=== PATIENT | male | born 1945 | race Caucasian/White ===

== ENCOUNTER → 2016-10-16 | Outpatient (CLI) | payer MEDICARE ==
[~2016-10-16] MED LIST: ACET325T51 PO; ATOR40TA PO; FLUD0.1T PO; GABA-336 PO; GABA-338 PO; INSU100V SQ; INSU100V8 SQ; LACT1CAP46 PO; LEVO75TA4 PO; MIDO5TAB PO; MULT-28 PO; PANT40TA27 PO; PRED20TA PO; SERT100T12 PO
--- NOTE | 2016-10-16 14:48 | DI ---
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 Findings: There is no evidence for acute deep venous thrombosis in either thigh. Specifically, serial graded compression was performed from the inguinal ligament to the popliteal bifurcation, bilaterally, demonstrating appropriate compressibility of the deep venous system. In addition, color and pulsed Doppler demonstrate appropriate spontaneous flow, variation with respiration, and augmentation with calf compression. At the ankle, normal flow is identified in the posterior tibial veins; these vessels are also normal in caliber. Superficial thrombosis, possibly chronic is seen in the right anterior tibial vein of the calf. Impression: No evidence of acute DVT in either lower limb. .
--- NOTE | 2016-10-16 14:50 | DI ---
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 Findings: RIGHT LEG (cm/sec) Common Femoral 89 Superficial Femoral Proximal 73 Mid 68 Distal 62 Popliteal 71 MANUELA-prox 42 SHADE MAKER-prox 30 MANUELA-dist 50 SHADE MAKER-dist 40 LEFT LEG (cm/sec) Common Femoral 97 Superficial Femoral Proximal 73 Mid 81 Distal 68 Popliteal 64 MANUELA-prox 68 SHADE MAKER-prox 65 MANUELA-dist 69 SHADE MAKER-dist 68 Normal multiphasic waveforms in the right lower extremity through the popliteal. There are dampened waveforms seen in the calf arteries. No focal velocity elevation or occlusion however. Left lower extremity shows normal waveforms to the level of the popliteal. There are dampened waveforms in the left posterior tibial artery. IMPRESSION: 1. Mild stenosis in the right popliteal. 2. Mild stenosis in the left posterior tibial artery. .
== END ==
LOC: IMA 13:18
PROVIDERS: ATTEND Internal Medicine
DX: L97.921 Non-pressure chronic ulcer of unspecified part of left lower leg limited to breakdown of skin (principal); I82.441 Acute embolism and thrombosis of right tibial vein; I70.203 Unspecified atherosclerosis of native arteries of extremities, bilateral legs; L97.811 Non-pressure chronic ulcer of other part of right lower leg limited to breakdown of skin

== ENCOUNTER 2017-12-01 23:04 | Inpatient (IN) ==
--- OUTSIDE RECORDS SUMMARY | 2017-12-01 23:32 | External Medical Summary ---
:1945 Author Organization [employer] Care Team Providers Name Role Phone Beltran Leija Provider Role Unavailable Allergies No Known Allergies Problems Problem Type Condition Code Onset Dates Condition Status Problem Dyspnea R06.00 Active Problem Palpitation R00.2 Active Problem Dizziness and giddiness R42 Active Medications No Known Medications Results No Known Results Summary Purpose [facility] [employer] Submission
--- OUTSIDE RECORDS SUMMARY | 2017-12-01 23:32 | External Medical Summary ---
:1945 Author Organization [employer] Care Team Providers Name Role Phone Eboni, Ashley Provider Role Unavailable Allergies, Adverse Reactions, Alerts Substance Reaction Event Type N.K.D.A. Info Not Available Non Drug Allergy Problems Problem Type Condition ICD-9 Code Onset Dates Condition Status Problem Hypothyroid 244.9 Active Assessment Diabetes Mellitus Type 2, not 250.00 Active stated as uncontrolled Problem Diabetes Mellitus Type 2, not 250.00 Active stated as uncontrolled Assessment Delusional disorder 297.1 Active Assessment Hypothyroid 244.9 Active Assessment Other psychological or physical V62.89 Active stress, not elsewhere classified Medications Medication Code Code Instructions Start End Status Dosage System Date Date Levothyroxine [facility] 19097-19 25 MCG Orally Feb 16, 1 tablet Sodium 91-84 Once a day 2013 on an empty stomach in the morning Lantus [facility] 86927-54 100 UNIT/ML 25 units 20-33 Subcutaneous QD hs Risperdal Consta [facility] 73254-80 25 MG December 01, 25 mg 12-08 Intramuscular 2014 every 2 weeks Rolaids [facility] 27532-45 550-110 MG Orally 2 tablets 16-31 Six times a day as needed Procedures Procedure Coding System Code Date OFFICE VISIT, EST-MOD. COMPLEXITY (25 MIN) CPT-4 16737 December 01, 2014 [facility] visit Established Patient CPT-4 G0467 December 01, 2014 Vital Signs Date/Time: December 01, 2014 Height 71 in Weight 198.8 lbs Temperature 97.9 F Blood Pressure Diastolic 59 mm Hg Blood Pressure Systolic 103 mm Hg Cardiac Monitoring Heart Rate 74 /min BMI 27.72 Index Respiratory Rate 14 /min Results No Known Results Summary Purpose [employer] Submission
--- OUTSIDE RECORDS SUMMARY | 2017-12-01 23:32 | External Medical Summary ---
:1945 Author Organization [employer] Care Team Providers Name Role Phone Ashley Lyn Provider Role Unavailable Allergies No Known Allergies Problems Problem Type Condition Code Onset Dates Condition Status Problem Hypothyroid 244.9 Active Problem Diabetes Mellitus Type 2, not stated 250.00 Active as uncontrolled Medications Medication Code System Code Instructions Start Date End Date Status Dosage Risperdal [facility] [address] 0.5 MG Orally BID December 15 -2014 Results No Known Results Summary Purpose [employer] Submission
--- OUTSIDE RECORDS SUMMARY | 2017-12-01 23:32 | External Medical Summary ---
:1945 Author Organization [employer] Care Team Providers Name Role Phone Chip Salmeron Provider Role Unavailable Allergies, Adverse Reactions, Alerts Substance Reaction Event Type N.K.D.A. Info Not Available Non Drug Allergy Problems Problem Type Condition Code Onset Dates Condition Status Problem Diabetes Mellitus Type 2, not 250.00 Active stated as uncontrolled Problem Hypothyroidism, unspecified E03.9 Active Problem Personal history of other diseases Z87.39 Active of the musculoskeletal system and connective tissue Problem Type 2 diabetes mellitus with E11.65 Active hyperglycemia Problem Hyperlipidemia, unspecified E78.5 Active Problem Mixed hyperlipidemia E78.2 Active Problem Gastro-esophageal reflux disease K21.9 Active without esophagitis Problem Type 2 diabetes mellitus without E11.9 Active complications Problem Major depressive disorder, single F32.9 Active episode, unspecified Problem Essential (primary) hypertension I10 Active Assessment Anemia, unspecified D64.9 Active Assessment Non-pressure chronic ulcer of L97.909 Active unspecified part of unspecified lower leg with unspecified severity Assessment Encounter for immunization Z23 Active Assessment Gastro-esophageal reflux disease K21.9 Active without esophagitis Assessment Hypomagnesemia E83.42 Active Assessment Hypokalemia E87.6 Active Assessment Other 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 Active Assessment Mixed hyperlipidemia E78.2 Active Assessment Type 2 diabetes mellitus without E11.9 Active complications Problem Hypothyroid 244.9 Active Medications Medication Code Code Instructions Start End Status Dosage [place] [address]-53 300 MG Orally 1 capsule 39-01 [place] [address]-03 17 grams Orally AugustJun 10, 17 grams 34-02 daily mixed with 2015 (1 8 oz water [place]full) [place] [address]-31 100 UNIT/ML 20 units 20-33 Subcutaneous Once [place] [address]-73 100 MG Orally 1 tablet 24-13 [place] [address]-08 0.1 MG Orally Dec 12, 2 tablet Acetate 33-01 daily 2015 Midodrine HCl [facility] 17962-55 10 MG Orally 1 tablet 33-01 Three times a day Carbidopa-Levodopa [facility] 22858-86 25-100 MG Orally 1 tablet 93-01 Three times a day Pantoprazole Sodium [facility] 56327-28 20 MG Orally 1 tablet 06-01 [place] [address]-58 75 MCG Orally Mar 13, 1 tablet 82-11 Once a day 2015 on an empty stomach in the morning Potassium Chloride [facility] 09015-88 20 Orally Twice May 12, 2 tablet ER 80-01 a day 2015 Minocycline HCl [facility] 10059-28 100 MG Orally 1 capsule 67-53 Twice a day Mirtazapine [facility] 89180-59 7.5 MG Orally 1 tablet 63-00 Once a day before bedtime in the evening Pravachol [facility] 79510-13 20 MG Orally Mar 28, 1 tablet 78-05 Once a day 2015 Procedures Procedure Coding System Code Date OFFICE VISIT, EST-LOW COMPLEXITY (15 MIN.) CPT-4 30014 Mar 28, 2016 PNEUMOCOCOCCAL CONJUGATE VACCINE CPT-4 80824 Mar 28, 2016 [facility] visit Established Patient CPT-4 G0467 Mar 28, 2016 ADMINISTRATION, 1ST IMMUNIZATION CPT-4 58155 Mar 28, 2016 Vital Signs Date/Time: Mar 28, 2016 Temperature 97.9 F Height 71 in Weight 177.8 lbs Blood Pressure Diastolic 70 mm Hg Blood Pressure Systolic 118 mm Hg Cardiac Monitoring Heart Rate 68 /min BMI 24.80 Index Oximetry 98 % Results No Known Results Immunizations Vaccine Administration Date Prevnar 13 Mar 28, 2016 Summary Purpose [employer] Submission
--- OUTSIDE RECORDS SUMMARY | 2017-12-01 23:32 | External Medical Summary ---
:1945 Author Organization [employer] Care Team Providers Name Role Phone Ashley Lyn Provider Role Unavailable Allergies No Known Allergies Problems Problem Type Condition ICD-9 Code Onset Dates Condition Status Problem Hypothyroid 244.9 Active Assessment Hypothyroid 244.9 Active Problem Diabetes Mellitus Type 2, not 250.00 Active stated as uncontrolled Assessment Aftercare for healing traumatic V54.13 Active fracture of hip Assessment Diabetes Mellitus Type 2, not 250.00 Active stated as uncontrolled Assessment Personal history of arthritis V13.4 Active Medications Medication Code Code Instructions Start End Date Status Dosage System Date Lovastatin [facility] 60622-94 20 MG Orally Feb 16, Active 1 tablet 76-06 Once a day 2013 [place] [address]-63 15 MG Orally May 19May 14, Active 1 tablet 99-01 Once a day 2013 2014 [place] [address]-97 100 UNIT/ML Active 30 units 20-33 [place] [address]-07 550-110 MG Active 2 tablets 16-31 Orally Six times [place] [address]-32 25 MCG Orally Feb 16, Active 1 tablet Sodium 53-00 Once a day 2013 on an empty stomach in the morning Procedures Procedure Coding System Code Date HEMOGLOBIN A1C, IN HOUSE CPT-4 16384 May 19, 2014 OFFICE VISIT, EST-LOW COMPLEXITY (15 MIN.) CPT-4 60320 May 19, 2014 TSH CPT-4 35087 May 19, 2014 Vital Signs Date/Time: May 19, 2014 Height 71 inches Weight 194.8 lbs Temperature 98.1 F Blood Pressure Diastolic 60 mm Hg Blood Pressure Systolic 100 mm Hg Cardiac Monitoring Heart Rate 60 Beats per Minute BMI 27.17 Index Respiratory Rate 16 per Minute Results Name Result Date Reference Range Unit In House Hemoglobin A1c TSH Summary Purpose [employer] Submission
--- OUTSIDE RECORDS SUMMARY | 2017-12-01 23:32 | External Medical Summary ---
:1945 Author Organization [employer] Care Team Providers Name Role Phone Ashley Lyn Provider Role Unavailable Allergies No Known Allergies Problems Problem Type Condition Code Onset Dates Condition Status Problem Hypothyroid 244.9 Active Problem Diabetes Mellitus Type 2, not stated 250.00 Active as uncontrolled Medications No Known Medications Results No Known Results Summary Purpose [facility] [employer] Submission
--- OUTSIDE RECORDS SUMMARY | 2017-12-01 23:32 | External Medical Summary ---
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 Problem Insomnia, unspecified G47.00 Active Problem Schizophrenia, unspecified F20.9 Active Problem Hyperlipidemia, unspecified E78.5 Active Problem Major depressive disorder, single F32.9 Active episode, unspecified Problem Mixed hyperlipidemia E78.2 Active Problem Type 2 diabetes mellitus with E11.65 Active hyperglycemia Problem Hypothyroid 244.9 Active Problem Diabetes Mellitus Type 2, not stated 250.00 Active as uncontrolled Problem Personal history of other diseases Z87.39 Active of the musculoskeletal system and connective tissue Problem Hypothyroidism, unspecified E03.9 Active Medications No Known Medications Results No Known Results Summary Purpose [employer] Submission
--- OUTSIDE RECORDS SUMMARY | 2017-12-01 23:32 | External Medical Summary ---
:1945 Author Organization [employer] Care Team Providers Name Role Phone Beltran Leija Provider Role Unavailable Allergies No Known Allergies Problems Problem Type Condition Code Onset Dates Condition Status Problem Dyspnea R06.00 Active Problem Palpitation R00.2 Active Problem Dizziness and giddiness R42 Active Medications No Known Medications Results No Known Results Summary Purpose [facility] Submission
--- OUTSIDE RECORDS SUMMARY | 2017-12-01 23:32 | External Medical Summary ---
[...] 2 diabetes mellitus with E11.65 Active hyperglycemia Assessment Type 2 diabetes mellitus with E11.65 Active hyperglycemia Problem Hypothyroid 244.9 Active Problem Diabetes Mellitus Type 2, not stated 250.00 Active as uncontrolled Assessment Other fatigue R53.83 Active Problem Personal history of other diseases Z87.39 Active of the musculoskeletal system and connective tissue Assessment Confusion R41.0 Active Problem Hypothyroidism, unspecified E03.9 Active Medications Medication Code Code Instructions Start End Status Dosage System Date Date MiraLax [facility] 48166-84 17 grams Orally AugustJun 10, 17 grams 34-02 daily mixed with 2015 (1 8 oz water capfull) Midodrine HCl [facility] 94179-85 10 MG Orally 1 tablet 33-01 Three times a day Gabapentin [facility] 91649-60 300 MG Orally 1 capsule 39-01 daily at supper Pantoprazole Sodium [facility] 70704-91 20 MG Orally 1 tablet 06-01 Once a day Sertraline HCl [facility] 27306-08 100 MG Orally 1 tablet 24-13 Once a day Synthroid [facility] 35228-81 75 MCG Orally Mar 13, 1 tablet 82-11 Once a day 2016 on an empty stomach in the morning Pravachol [facility] 08386-99 20 MG Orally Mar 28, 1 tablet 78-05 Once a day 2015 Lantus [facility] 84566-23 100 UNIT/ML 20 units 20-33 Subcutaneous Once a day at bedtime Minocycline HCl [facility] 73623-95 100 MG Orally 1 capsule 67-53 Twice a day Potassium Chloride [facility] 09869-00 20 Orally Twice Jun 10, 2 tablet ER 80-01 a day 2015 Carbidopa-Levodopa [facility] 34599-85 25-100 MG Orally 1 tablet 93-01 Three times a day Mirtazapine [facility] 78508-83 7.5 MG Orally 1 tablet 63-00 Once a day before bedtime in the evening Fludrocortisone [facility] 96100-44 0.1 MG Orally May 12, 2 tablet Acetate 33-01 daily 2015 Procedures Procedure Coding System Code Date URINALYSIS WITH MICROSCOPIC CPT-4 39007 May 27, 2016 URINE CULTURE CPT-4 29204 May 27, 2016 Results Name Result Date Reference Range Unit Abnormality Flag Urine Culture ----Urine Culture Source: Urine [id number] Collected: 05/27/16 15:16 Urinalysis with Microscopic ----Nitrites Negative [id number] Negative ----Protein Negative [id number] Negative ----Specific [place] 1.044 20160527 1.003-1.030 H ----Bilirubin Negative [id number] Negative ----Urobilinogen 1.0 [id number] <1.0 mg/dL ----Leukocyte Negative [id number] Negative Esterase ----pH 5.5 20160527 5.0-8.0 ----Epithelial Cells 0-2 11005867 /HPF ----Ketones Negative [id number] Negative ----Hyaline Casts 4-6 [id number] 0-3 /LPF * ----Blood Negative [id number] Negative ----Color DkYellow 20160527 ----RBC, Urine 5-10 [id number] 0-4 /HPF * ----WBC, Urine 0-2 [id number] 0-4 /HPF ----Glucose, Urine Pos 1+ [id number] Negative * ----Appearance Turbid [id number] * ----Crystals Ca Ox 20160527 ----Microscop. Exam performed [id number] Perf. Summary Purpose [employer]ClinicalWorks Submission
--- OUTSIDE RECORDS SUMMARY | 2017-12-01 23:32 | External Medical Summary ---
:1945 Author Organization [employer] Care Team Providers Name Role Phone Ashley Lyn Provider Role Unavailable Allergies No Known Allergies Problems Problem Type Condition Code Onset Dates Condition Status Problem Hypothyroidism, unspecified E03.9 Active Problem Personal history of other diseases Z87.39 Active of the musculoskeletal system and connective tissue Problem Type 2 diabetes mellitus without E11.9 Active complications Problem Diabetes Mellitus Type 2, not stated 250.00 Active as uncontrolled Problem Hypothyroid 244.9 Active Medications No Known Medications Results No Known Results Summary Purpose [employer] Submission
--- OUTSIDE RECORDS SUMMARY | 2017-12-01 23:32 | External Medical Summary ---
:1945 Author Organization [employer] Care Team Providers Name Role Phone Ashley Lyn Provider Role Unavailable Allergies No Known Allergies Problems Problem Type Condition Code Onset Dates Condition Status Problem Hypothyroid 244.9 Active Problem Diabetes Mellitus Type 2, not stated 250.00 Active as uncontrolled Medications Medication Code System Code Instructions Start Date End Date Status Dosage Lantus [facility] [address] 100 UNIT/ML 30 units -33 Subcutaneous daily at bedtime Results No Known Results Summary Purpose [employer]ClinicalWorks Submission
--- OUTSIDE RECORDS SUMMARY | 2017-12-01 23:32 | External Medical Summary ---
:1945 [facility] Care Team Providers Name Role Phone Chip Salmeron Provider Role Unavailable Allergies, Adverse Reactions, Alerts Substance Reaction Event Type N.K.D.A. Info Not Available Non Drug Allergy Problems Problem Type Condition Code Onset Dates Condition Status Problem Hypothyroid 244.9 Active Problem Personal history of other diseases Z87.39 Active of the musculoskeletal system and connective tissue Problem Diabetes Mellitus Type 2, not 250.00 Active stated as uncontrolled Problem Hyperlipidemia, unspecified E78.5 Active Assessment Essential (primary) hypertension I10 Active Problem Major depressive disorder, single F32.9 Active episode, unspecified Assessment Anemia, unspecified D64.9 Active Assessment Gastro-esophageal reflux disease K21.9 Active without esophagitis Problem Type 2 diabetes mellitus with E11.65 Active hyperglycemia Problem Type 2 diabetes mellitus without E11.9 Active complications Problem Hypothyroidism, unspecified E03.9 Active Problem Essential (primary) hypertension I10 Active Problem Gastro-esophageal reflux disease K21.9 Active without esophagitis Assessment Other adrenocortical insufficiency E27.49 Active Assessment Enterocolitis due to Clostridium A04.7 Active difficile Assessment Insomnia, unspecified G47.00 Active Assessment Major depressive disorder, single F32.9 Active episode, unspecified Assessment Non-pressure chronic ulcer of L97.909 Active unspecified part of unspecified lower leg with unspecified severity Assessment 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 Assessment Hyperlipidemia, unspecified E78.5 Active Assessment Hypothyroidism, unspecified E03.9 Active Assessment Orthostatic hypotension I95.1 Active Assessment Type 2 diabetes mellitus with E11.65 Active hyperglycemia Medications Medication Code Code Instructions Start End Status Dosage [place] [address]-45 40 MG Orally 1 tablet 07-01 [place] [address]-73 25-100 MG Orally 1 tablet 93-01 Three times a day Fludrocortisone [facility] 71669-58 0.1 MG Orally May 12, 2 tablet Acetate 33- daily 2015 MiraLax [facility] 48938-80 17 grams Orally AugustJun 10, 17 grams 34-02 daily mixed with 2015 (1 8 oz water capfull) Levothyroxine [facility] 31851-18 75 MCG Orally Feb 16, 1 tablet Sodium 55-00 Once a day 2013 on an empty stomach in the morning every other day Minocycline HCl [facility] 14516-27 100 MG Orally 1 capsule 67-53 Twice a day Potassium Chloride [facility] 63980-94 20 Orally Twice Jun 10, 2 tablet ER 80-01 a day 2015 Midodrine HCl [facility] 62599-58 10 MG Orally 1 tablet 33-01 Three times a day Sertraline HCl [facility] 38969-95 100 MG Orally 1 tablet 24-13 Once a day Lantus [facility] 39311-15 100 UNIT/ML 20 units 20-33 Subcutaneous Once a day at bedtime Mirtazapine [facility] 67401-18 7.5 MG Orally 1 tablet 63-00 Once a day before bedtime in the evening Procedures Procedure Coding System Code Date OFFICE VISIT, EST-LOW COMPLEXITY (15 MIN.) CPT-4 73542 Mar 12, 2016 [facility] visit Established Patient CPT-4 G0467 Mar 12, 2016 Vital Signs Date/Time: Mar 12, 2016 Temperature 97.0 F Height 71 in Weight 172.8 lbs Blood Pressure Diastolic 62 mm Hg Blood Pressure Systolic 116 mm Hg Cardiac Monitoring Heart Rate 74 /min BMI 24.10 Index Oximetry 98 % Respiratory Rate 16 /min Results No Known Results Summary Purpose eClinicalWorks Submission
--- OUTSIDE RECORDS SUMMARY | 2017-12-01 23:32 | External Medical Summary ---
:1945 Author Organization [employer] Care Team Providers Name Role Phone Chip Salmeron Provider Role Unavailable Allergies No Known Allergies Problems Problem Type Condition Code Onset Dates Condition Status Problem Diabetes Mellitus Type 2, not stated 250.00 Active as uncontrolled Problem Hypothyroidism, unspecified E03.9 Active Problem Personal history of other diseases Z87.39 Active of the musculoskeletal system and connective tissue Problem Hypothyroid 244.9 Active Problem Type 2 diabetes mellitus with E11.65 Active hyperglycemia Problem Hyperlipidemia, unspecified E78.5 Active Problem Mixed hyperlipidemia E78.2 Active Problem Gastro-esophageal reflux disease K21.9 Active without esophagitis Problem Type 2 diabetes mellitus without E11.9 Active complications Problem Major depressive disorder, single F32.9 Active episode, unspecified Problem Essential (primary) hypertension I10 Active Medications No Known Medications Results No Known Results Summary Purpose [employer]ClinicalWorks Submission
--- OUTSIDE RECORDS SUMMARY | 2017-12-01 23:32 | External Medical Summary ---
:1945 Author Organization [employer]ClinicalWorks Care Team Providers Name Role Phone Ashley Lyn Provider Role Unavailable Allergies No Known Allergies Problems Problem Type Condition ICD-9 Code Onset Dates Condition Status Problem Hypothyroid 244.9 Active Problem Diabetes Mellitus Type 2, not 250.00 Active stated as uncontrolled Medications No Known Medications Results No Known Results Summary Purpose [email or web address] Submission
--- OUTSIDE RECORDS SUMMARY | 2017-12-01 23:32 | External Medical Summary ---
:1945 Author Organization [employer]ClinicalWorks Care Team Providers Name Role Phone Beltran Leija Provider Role Unavailable Allergies, Adverse Reactions, Alerts Substance Reaction Event Type N.K.D.A. Info Not Available Non Drug Allergy Problems Problem Type Condition Code Onset Dates Condition Status Problem Dyspnea R06.00 Active Problem Palpitation R00.2 Active Problem Dizziness and giddiness R42 Active Assessment Palpitation R00.2 Active Assessment Dyspnea R06.00 Active Assessment Dizziness and giddiness R42 Active Medications Medication Code Code Instructions Start End Date Status Dosage System Date Antibiotic NDC 0 orally bid 1 tablet Risperidone NDC 86955-38 3 MG Orally Once 1 tablet 42-05 a day Levothyroxine NDC 59391-50 75 MCG Orally 1 tablet Sodium 55-00 Once a day MiraLax NDC 80862-74 Orally not 34-02 defined Lantus NDC 55738-79 100 UNIT/ML not 20-33 Subcutaneous defined Trazodone HCl NDC 81336-14 50 MG Orally 2 tablets 59-00 Once a day Lasix NDC 59147-03 20 MG Orally September 24, 1 tablet 67-10 Once a day 2015 Procedures Procedure Coding System Code Date Office Visit, Est Pt., Level 4 CPT-4 26962 September 25, 2015 ELECTROCARDIOGRAM, TRACING CPT-4 24946 September 25, 2015 Vital Signs Date/Time: September 25, 2015 BMI 23.87 Index Weight 176. lbs Height 6 ft 0 in in Cardiac Monitoring Heart Rate 87 /min Oximetry 97% % Blood Pressure Diastolic 40 mm Hg Blood Pressure Systolic 70 mm Hg Results No Known Results Summary Purpose [employer]ClinicalWorks Submission
--- OUTSIDE RECORDS SUMMARY | 2017-12-01 23:32 | External Medical Summary ---
[...] R42 Active Assessment Palpitation R00.2 Active Assessment Dizziness and giddiness R42 Active Assessment Dyspnea R06.00 Active Medications Medication Code Code Instructions Start End Date Status Dosage System Date Lantus [facility] 20154-93 100 UNIT/ML not 20-33 Subcutaneous defined Zoloft [facility] 54713-30 25 MG Orally 1 tablet 60-30 Once a day Pantoprazole [facility] 78661-11 40 MG Orally 1 tablet Sodium 07-01 Once a day MiraLax [facility] 95863-91 Orally not 34-02 defined Risperidone [facility] 21599-90 3 MG Orally Once 1 tablet 42-05 a day Gabapentin [facility] 26472-73 100 MG Orally 1 capsule 92-01 Three times a day [place] [facility] 86441-96 5-325 MG Orally 1 tablet 13-01 every 6 hrs as needed Augmentin [facility] 15884-04 500-125 MG 1 tablet 80-12 Orally Three times a day Levothyroxine [facility] 37316-84 75 MCG Orally 1 tablet Sodium 55-00 Once a day Procedures Procedure Coding System Code Date Office Visit, Est Pt., Level 4 CPT-4 64358 October 11, 2015 Vital Signs Date/Time: October 11, 2015 BMI 23.87 Index Weight 176 lbs Height 6 ft 0 in in Cardiac Monitoring Heart Rate 82 /min Oximetry 97 % Blood Pressure Diastolic 58 mm Hg Blood Pressure Systolic 90 mm Hg Results No Known Results Summary Purpose eClinicalWorks Submission
--- OUTSIDE RECORDS SUMMARY | 2017-12-01 23:32 | External Medical Summary ---
:1945 Author Organization eClinicalWorks Care Team Providers Name Role Phone Ashley Lyn Provider Role Unavailable Allergies No Known Allergies Problems Problem Type Condition ICD-9 Code Onset Dates Condition Status Problem Hypothyroid 244.9 Active Assessment Lipoma of other skin and 214.1 Active subcutaneous tissue Problem Diabetes Mellitus Type 2, not 250.00 Active stated as uncontrolled Medications Medication Code Code Instructions Start End Date Status [place] [address]-91 20 MG Orally Feb 16, Active 1 tablet 76-06 Once a day 2013 [place] [address]-53 100 UNIT/ML Active 30 units 20-33 [place] [address]-09 550-110 MG Active 2 tablets 16-31 Orally Six [place] [address]-95 25 MCG Orally Feb 16, Active 1 tablet Sodium 53-00 Once a day 2013 on an empty stomach in the morning Procedures Procedure Coding System Code Date OFFICE VISIT, EST-LOW COMPLEXITY (15 MIN.) CPT-4 30487 Mar 23, 2014 Vital Signs Date/Time: Mar 23, 2014 Height 71 inches Weight 196.4 lbs Temperature 98.0 F Blood Pressure Diastolic 60 mm Hg Blood Pressure Systolic 106 mm Hg Cardiac Monitoring Heart Rate 72 Beats per Minute BMI 27.39 Index Respiratory Rate 16 per Minute Results No Known Results Summary Purpose eClinicalWorks Submission
--- OUTSIDE RECORDS SUMMARY | 2017-12-01 23:32 | External Medical Summary ---
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 Active unspecified part of unspecified lower leg with unspecified severity Assessment Hypothyroidism, unspecified E03.9 Active Assessment Type 2 diabetes mellitus with E11.65 Active hyperglycemia Medications Medication Code Code Instructions Start End Status Dosage System Date Date Pantoprazole Sodium [facility] 87327-65 40 MG Orally 1 tablet 07-01 Once a day Sertraline HCl [facility] 75616-75 100 MG Orally 1 tablet 24-13 Once a day Fludrocortisone [facility] 58014-63 0.1 MG Orally Dec 12, 2 tablet Acetate 33-01 daily 2015 Potassium Chloride [facility] 49537-91 20 Orally Twice Dec 12, 2 tablet ER 80-01 a day 2015 Levothyroxine [facility] 85264-69 75 MCG Orally Aug 20, 1 tablet Sodium 55-00 Once a day 2013 on an empty stomach in the morning every other day Lantus [facility] 47753-41 100 UNIT/ML 20 units 20-33 Subcutaneous Once a day at bedtime Mirtazapine [facility] 89288-23 7.5 MG Orally 1 tablet 63-00 Once a day before bedtime in the evening Carbidopa-Levodopa [facility] 54297-70 25-100 MG Orally 1 tablet 93-01 Three times a day Midodrine HCl [facility] 29257-61 10 MG Orally 1 tablet 33-01 Three times a day Minocycline HCl [facility] 86142-21 100 MG Orally 1 capsule 67-53 Twice a day MiraLax [facility] 86270-95 17 grams Orally AugustJun 10, grams 34-02 daily mixed with 2015 (1 8 oz water capfull) Procedures Procedure Coding System Code Date [facility] MicroAlb/Creat Ratio, Urine CPT-4 59249 Mar 12, 2016 [facility] MicroAlb/Creat Ratio, Urine CPT-4 33380 Mar 12, 2016 COMPLETE CBC W/AUTO DIFF WBC CPT-4 56389 Mar 12, 2016 TSH CPT-4 37226 Mar 12, 2016 LIPID PANEL CPT-4 26318 Mar 12, 2016 URINALYSIS WITH MICROSCOPIC CPT-4 32908 Mar 12, 2016 COMPREHENSIVE METABOLIC PANEL CPT-4 77925 Mar 12, 2016 HEMOGLOBIN A1C, IN HOUSE CPT-4 87400 Mar 12, 2016 SED RATE CPT-4 11682 Mar 12, 2016 C-REACTIVE PROTEIN CPT-4 62917 Mar 12, 2016 Results Name Result Date Reference Range Unit Abnormality Flag eGFR ----eGFR >60 [id number] >60 mL/min Non-HDL Cholesterol ----Non-HDL Cholesterol 167 [id number] 0-159 mg/dL H Summary Purpose eClinicalWorks Submission
--- OUTSIDE RECORDS SUMMARY | 2017-12-01 23:32 | External Medical Summary ---
:1945 Author Organization eClinicalWorks Care Team Providers Name Role Phone Ashley Lyn Provider Role Unavailable Allergies No Known Allergies Problems Problem Type Condition Code Onset Dates Condition Status Problem Hypothyroid 244.9 Active Problem Diabetes Mellitus Type 2, not stated 250.00 Active as uncontrolled Medications No Known Medications Results No Known Results Summary Purpose [employer] Submission
--- OUTSIDE RECORDS SUMMARY | 2017-12-01 23:33 | External Medical Summary ---
:1945 Author Organization eClinicalWorks Care Team Providers Name Role Phone Eboni, Ashley Provider Role Unavailable Allergies, Adverse Reactions, Alerts Substance Reaction Event Type N.K.D.A. 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 Assessment Hypothyroidism, unspecified E03.9 Active Assessment Encounter for therapeutic drug level Z51.81 Active monitoring Medications Medication Code Code Instructions Start End Date Status Dosage System Date Divalproex Sodium [facility] 18309-37 250 MG Orally 1 tablet 40-01 Twice a day Levothyroxine [facility] 72517-54 25 MCG Orally Feb 16, 1 tablet Sodium 91-84 Once a day 2013 on an empty [place] [address]-90 0.5 MG Orally December 15, tablet 18-30 B[place] 2014 [place] [address]-50 100 UNIT/ML 20-30 20-33 Subcutaneous QD units hs Procedures Procedure Coding System Code Date [facility] CPT-4 32235 May 18, 2015 [facility] visit Established Patient CPT-4 G0467 May 18, 2015 HEMOGLOBIN A1C, IN HOUSE CPT-4 53408 May 18, 2015 OFFICE VISIT, EST-LOW COMPLEXITY (15 MIN.) CPT-4 24810 May 18, 2015 Vital Signs Date/Time: May 18, 2015 Height 71 in Weight 191.5 lbs Temperature 98.3 F Blood Pressure Diastolic 60 mm Hg Blood Pressure Systolic 102 mm Hg Cardiac Monitoring Heart Rate 80 /min BMI 26.71 Index Respiratory Rate 16 /min Results No Known Results Summary Purpose eClinicalWorks Submission
--- OUTSIDE RECORDS SUMMARY | 2017-12-01 23:33 | External Medical Summary ---
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 Problem Personal history of other diseases Z87.39 Active of the musculoskeletal system and connective tissue Assessment Schizophrenia, unspecified F20.9 Active Problem Hypothyroidism, unspecified E03.9 Active Medications Medication Code Code Instructions Start End Status Dosage System Date Date Minocycline HCl [facility] 86914-82 100 MG Orally 1 capsule 67-53 Twice a day Mirtazapine [facility] 36184-90 7.5 MG Orally 1 tablet 63-00 Once a day before bedtime in the evening Sertraline HCl [facility] 76428-67 100 MG Orally 1 tablet 24-13 Once a day Potassium Chloride [facility] 62706-46 20 Orally Twice Jun 10, 2 tablet ER 80-01 a day 2015 Fludrocortisone [facility] 04065-14 0.1 MG Orally Jun 10, 2 tablet Acetate 33-01 daily 2015 Synthroid [facility] 29471-92 75 MCG Orally Feb 14, 1 tablet 82-11 Once a day 2015 on an empty stomach in the morning MiraLax [facility] 98032-00 17 grams Orally AugustJun 10 grams 34-02 daily mixed with 2015 (1 8 oz water capfull) Lantus [facility] 11560-63 100 UNIT/ML 20 units 20-33 Subcutaneous Once a day at bedtime Pravachol [facility] 01673-51 20 MG Orally Mar 28, 1 tablet 78-05 Once a day 2015 Pantoprazole Sodium [facility] 99766-09 20 MG Orally 1 tablet 06-01 Once a day Carbidopa-Levodopa [facility] 30529-46 25-100 MG Orally 1 tablet 93-01 Three times a day Gabapentin [facility] 65862-37 300 MG Orally 1 capsule 39-01 daily at supper Midodrine HCl [facility] 48858-85 10 MG Orally 1 tablet 33-01 Three times a day Procedures Procedure Coding System Code Date OFFICE VISIT, EST-LOW COMPLEXITY (15 MIN.) CPT-4 08752 May 22, 2016 Fluzone HIGH DOSE (age 65 and older) CPT-4 69126 May 22, 2016 [facility] visit Established Patient CPT-4 G0467 May 22, 2016 ADMINISTRATION, 1ST IMMUNIZATION CPT-4 44513 May 22, 2016 ADMN FLU VAC NO FEE SCHED SAME DAY CPT-4 G0008 May 22, 2016 Vital Signs Date/Time: May 22, 2016 Cardiac Monitoring Heart Rate 96 /min Temperature 98.4 F Height 71 in Oximetry 98 % Respiratory Rate 16 /min Blood Pressure Diastolic 80 mm Hg Blood Pressure Systolic 138 mm Hg Results No Known Results Immunizations Vaccine Administration Date Fluzone HIGH DOSE (age 65 and older) May 22, 2016 Summary Purpose eClinicalWorks Submission
--- OUTSIDE RECORDS SUMMARY | 2017-12-01 23:33 | External Medical Summary ---
:1945 Author Organization [employer] [employer] Care Team Providers Name Role Phone Beltran Leija Provider Role Unavailable Allergies No Known Allergies Problems Problem Type Condition Code Onset Dates Condition Status Problem Dyspnea R06.00 Active Problem Palpitation R00.2 Active Problem Dizziness and giddiness R42 Active Medications No Known Medications Results No Known Results Summary Purpose [id number] [employer] Submission
--- OUTSIDE RECORDS SUMMARY | 2017-12-01 23:33 | External Medical Summary ---
:1945 Author Organization [employer] Care Team Providers Name Role Phone Beltran Leija Provider Role Unavailable Allergies No Known Allergies Problems Problem Type Condition Code Onset Dates Condition Status Problem Dyspnea R06.00 Active Problem Palpitation R00.2 Active Problem Dizziness and giddiness R42 Active Medications No Known Medications Results No Known Results Summary Purpose [employer] Submission
--- OUTSIDE RECORDS SUMMARY | 2017-12-01 23:33 | External Medical Summary ---
:1945 Author Organization eClinicalWorks Care Team Providers Name Role Phone Chip Salmeron Provider Role Unavailable Allergies No Known Allergies Problems Problem Type Condition Code Onset Dates Condition Status Problem Hypothyroid 244.9 Active Problem Personal history of other diseases Z87.39 Active of the musculoskeletal system and connective tissue Problem Diabetes Mellitus Type 2, not stated 250.00 Active as uncontrolled Assessment Type 2 diabetes mellitus with E11.65 Active hyperglycemia Problem Hyperlipidemia, unspecified E78.5 Active Problem Major depressive disorder, single F32.9 Active episode, unspecified Problem Type 2 diabetes mellitus with E11.65 Active hyperglycemia Problem Type 2 diabetes mellitus without E11.9 Active complications Problem Hypothyroidism, unspecified E03.9 Active Problem Essential (primary) hypertension I10 Active Problem Gastro-esophageal reflux disease K21.9 Active without esophagitis Medications Medication Code System Code Instructions Start Date End Date Status Dosage Synthroid [facility] 77419-243 75 MCG Orally Mar 13, 1 tablet on 08-10 Once a day 2015 an empty stomach in the morning Results No Known Results Summary Purpose eClinicalWorks Submission
--- OUTSIDE RECORDS SUMMARY | 2017-12-01 23:33 | External Medical Summary ---
[...] not stated 250.00 Active as uncontrolled Assessment Hypothyroid 244.9 Active Assessment Other psychological or physical V62.89 Active stress, not elsewhere classified Medications Medication Code Code Instructions Start End Date Status Dosage System Date Lantus [facility] 58806-56 100 UNIT/ML 30 units 20-33 [place] [address]-02 550-110 MG 2 tablets 16-31 Orally Six times as needed a day Levothyroxine [facility] 12465-99 25 MCG Orally Jan 20, 1 tablet Sodium 91-84 Once a day 2013 on an empty stomach in the morning Procedures Procedure Coding System Code Date [facility] visit Established Patient CPT-4 G0467 September 15, 2014 OFFICE VISIT, EST-LOW COMPLEXITY (15 MIN.) CPT-4 58568 September 15, 2014 [facility] visit New Patient CPT-4 G0466 September 15, 2014 Vital Signs Date/Time: September 15, 2014 Height 71 in Weight 167.12 lbs Temperature 98.5 F Blood Pressure Diastolic 72 mm Hg Blood Pressure Systolic 140 mm Hg Cardiac Monitoring Heart Rate 74 /min BMI 23.31 Index Respiratory Rate 16 /min Results No Known Results Summary Purpose [employer] Submission
--- OUTSIDE RECORDS SUMMARY | 2017-12-01 23:33 | External Medical Summary ---
[...] Active Problem Hypothyroidism, unspecified E03.9 Active Medications No Known Medications Results No Known Results Summary Purpose eClinicalWorks Submission
--- OUTSIDE RECORDS SUMMARY | 2017-12-01 23:33 | External Medical Summary ---
:1945 Author Organization eClinicalWorks Care Team Providers Name Role Phone Ashley Lyn Provider Role Unavailable Allergies No Known Allergies Problems Problem Type Condition ICD-9 Code Onset Dates Condition Status Problem Hypothyroid 244.9 Active Problem Diabetes Mellitus Type 2, not 250.00 Active stated as uncontrolled Medications No Known Medications Vital Signs Date/Time: Apr 19, 2014 Height 71 inches Weight 196.4 lbs Temperature 98.4 F Blood Pressure Diastolic 60 mm Hg Blood Pressure Systolic 94 mm Hg Cardiac Monitoring Heart Rate 76 Beats per Minute BMI 27.39 Index Respiratory Rate 16 per Minute Results No Known Results Summary Purpose eClinicalWorks Submission
--- OUTSIDE RECORDS SUMMARY | 2017-12-01 23:33 | External Medical Summary ---
:1945 Author Organization eClinicalWorks Care Team Providers Name Role Phone Eboni Ashley Provider Role Unavailable Allergies No Known Allergies Problems Problem Type Condition Code Onset Dates Condition Status Problem Hypothyroid 244.9 Active Assessment Encounter for therapeutic drug level Z51.81 Active monitoring Problem Diabetes Mellitus Type 2, not stated 250.00 Active as uncontrolled Assessment Hypothyroidism, unspecified E03.9 Active Medications Medication Code Code Instructions Start End Date Status Dosage System Date Lantus [facility] 78540-47 100 UNIT/ML 20-30 20-33 Subcutaneous QD units hs Risperdal [facility] 15219-34 0.5 MG Orally December 15, 1 tablet 18-30 BID 2014 Divalproex Sodium [facility] 62463-04 250 MG Orally 1 tablet 40-01 Twice a day Levothyroxine [facility] 15507-78 25 MCG Orally Feb 16, 1 tablet Sodium 91-84 Once a day 2013 on an empty stomach in the morning Procedures Procedure Coding System Code Date TSH CPT-4 48366 May 18, 2015 VALPROIC ACID CPT-4 11252 May 18, 2015 COMPLETE CBC W/AUTO DIFF WBC CPT-4 38592 May 18, 2015 Results No Known Results Summary Purpose eClinicalWorks Submission
--- OUTSIDE RECORDS SUMMARY | 2017-12-01 23:33 | External Medical Summary ---
:1945 Author Organization eClinicalWorks Care Team Providers Name Role Phone Vita Ventura Provider Role Unavailable Allergies, Adverse Reactions, Alerts [...] Problem Essential (primary) hypertension I10 Active Assessment Irritability R45.4 Active Assessment Confusion R41.0 Active Problem Hypothyroid 244.9 Active Medications Medication Code Code Instructions Start End Status Dosage [place] [address]-43 100 MG Orally 1 capsule 67-53 Twice a day Gabapentin N[place] 27708-89 300 MG Orally 1 capsule 39-01 daily [place] [address]-60 0.1 MG Orally May 12, 2 tablet Acetate 33-01 daily 2015 [place] [address]-51 75 MCG Orally Feb 14, 1 tablet 82-11 Once a day 2015 on an empty stomach in the morning Sertraline HCl NDC 51310-15 100 MG Orally 1 tablet 24-13 Once a day Pantoprazole Sodium NDC 69322-31 20 MG Orally 1 tablet 06-01 Once a day Potassium Chloride NDC 97281-18 20 Orally Twice Dec 12, 2 tablet ER 80-01 a day 2015 Mirtazapine [facility] 10357-00 7.5 MG Orally 1 tablet 63-00 Once a day before bedtime in the [place] [address]-21 25-100 MG Orally 1 tablet 93-01 Three times a day Pravachol NDC 12161-69 20 MG Orally Mar 28, 1 tablet 78-05 Once a day 2015 MiraLax [facility] 92440-21 17 grams Orally AugustJun 10, 17 grams 34-02 daily mixed with 2015 (1 8 oz water capfull) Lantus [facility] 27696-23 100 UNIT/ML 20 units 20-33 Subcutaneous Once a day at bedtime Midodrine HCl [facility] 85451-62 10 MG Orally 1 tablet 33-01 Three times a day Procedures Procedure Coding System Code Date OFFICE VISIT, EST-LOW COMPLEXITY (15 MIN.) CPT-4 70494 May 14, 2016 [facility] visit Established Patient CPT-4 G0467 May 14, 2016 Vital Signs Date/Time: May 14, 2016 Cardiac Monitoring Heart Rate 98 /min Temperature 98.3 F Height 71 in Oximetry 97 % Respiratory Rate 18 /min Blood Pressure Diastolic 80 mm Hg Blood Pressure Systolic 172 mm Hg Results No Known Results Summary Purpose eClinicalWorks Submission
--- OUTSIDE RECORDS SUMMARY | 2017-12-01 23:33 | External Medical Summary ---
:1945 Author Organization [employer] Care Team Providers Name Role Phone Beltran Leija Provider Role Unavailable Allergies No Known Allergies Problems Problem Type Condition Code Onset Dates Condition Status Problem Dyspnea R06.00 Active Problem Palpitation R00.2 Active Problem Dizziness and giddiness R42 Active Medications No Known Medications Results No Known Results Summary Purpose [employer] Submission
--- NOTE | 2017-12-01 23:53 | Emergency Department Report ---
Weakness HPI - General Chief complaint: Weakness <Willam William - 12/02/17 04:45> Stated complaint: Dementia, [facility] <WilliamWillam - 12/02/17 04: 45> Time Seen by Provider: 12/01/17 23:13 <WilliamWillam Jeanne - 12/02/17 04:45> Source: family (daughter and sigificant other) <Kendra Davies Alan - 12/02/17 02:53 > Mode of arrival: EMS <Yony Daviesethan Phillips - 12/02/17 02:53> Limitations: altered mental status <Yony Daviesethan Phillips - 12/02/17 02:53> - History of Present Illness HPI Narrative: Pt brought in to ER by EMS due to worsening physical and mental status. Daughter and significant accompany pt. THey report he hasn't had a BM in 5 days, he hasn't been eating or drinking, they suspect UTI as his urine is very foul smelling and he's had UTI in past. Mentally he has been worse and family thinks it is related to UTI. He was hospitalized at [facility] earlier this year due to weakness then was sent to [place] for rehab. Developed pressure ulcers on the heels and was readmitted to [facility] for tx of those. Developed mental status changes during that stay and has never been the same since. Was sent to [facility] following the 2nd [facility] stay and was there for approx 2 wks. Has been home from there for 1 week. Is currently living with his daughter and has home health services for the wounds on his heals. <Kendra Davies Alan - 12/02/17 02:53> - Related Data Home Medications Medication Instructions Recorded Confirmed Docusate Sodium [Colace] 1 cap PO DAILY 12/02/17 12/02/17 Folic Acid [Folate] 1 tab PO DAILY 12/02/17 12/02/17 Insulin Glargine,Hum.rec.anlog 17 unit SQ HS 12/02/17 12/02/17 [Lantus] Levothyroxine Sodium [Synthroid] 100 mcg PO ACB 12/02/17 12/02/17 Mirtazapine [Remeron] 15 mg PO HS 12/02/17 12/02/17 Pantoprazole Tab [Protonix] 20 mg PO BID 12/02/17 12/02/17 Quetiapine Fumarate [Seroquel] 100 mg PO BID 12/02/17 12/02/17 Quetiapine Fumarate [Seroquel] 200 mg PO DAILY 12/02/17 12/02/17 Previous Rx's Medication Instructions Recorded Acetaminophen 650 mg PO TID PRN 14 Days #0 12/08/15 <Willam William 12/02/17 04:45> Allergies Allergy/AdvReac Type Severity Reaction Status Date / Time aspirin Allergy Severe Vomiting Verified 12/02/17 01:23 Pork/Porcine Containing Allergy Mild Verified 12/02/17 01:22 Products fentanyl Allergy Unknown Verified 12/02/17 01:23 risperidone [From Risperdal] Allergy Unknown Verified 12/02/17 01:23 <Willam William 12/02/17 04:45> Review of Systems Limitations: ROS unobtainable due to patient's medical condition <Kendra Davies 12/02/17 02:53> [facility] Patient Stated Medical History Cataracts Yes Hypotension Yes Diabetes Mellitus Type 2 Yes Gastroesophageal Reflux Yes Disease Other GI Yes: GI BLEED HX Hx Incontinence Yes Hx Urinary Tract Infection Yes: FREQUENT <Willam William 12/02/17 04:45> DM - on insulin (Dx age 56) hypothyroid HLD gastritis recurrent UTI dementia <Kendra Davies 12/02/17 02:53> Surgical History: partial hip replacement R hip, cataract surgery, lipoma removals,radial keratotomy <Kendra Davies 12/01/17 23:59> Family History: F - of oral cancer M - of heart prob + FH of DM <Kendra Davies 12/01/17 23:59> - Social History Smoking status: Never smoker <Kendra Davies 12/01/17 23:59> Substance use type: does not use <Kendra Davies 12/01/17 23:59> Alcohol intake frequency: does not drink <Kendra Davies 12/01/17 23:59> Household members: children (daughter (significant other frequently at their house to care for pt)) <Kendra Davies 12/01/17 23:59> Current occupational status: retired <Kendra Davies 12/01/17 23:59> Current residence: Apartment/Private Home <Kendra Davies 12/01/17 23:59> Social history: PCP - Dr. Salmeron Ruling Machine Operator - Dr Lopez Neuro -Dr Mcdaniel <Kendra Davies 12/01/17 23:59> Physical Exam - Limitations Limitations: altered mental status <Kendra Davies 12/02/17 02:53> - General General appearance: in no apparent distress <Kendra Davies 12/02/17 02:53> - Normal Exams: Head:: Normocephalic without trauma <Kendra Davies 12/02/17 02:53> Neck:: Full range of motion, without adenopathy <Kendra Davies 12/02/17 02: 53> Chest/Respirations:: Clear all benjamin <Kendra Davies 12/02/17 02:53> Cardiovascular:: Regular rate and rhythm, capillary refill <Kendra Davies 02:53> Abdomen:: soft, non-tender, non-distended <Kendra Davies 12/02/17 02:53> Integumentary:: No rashes <Kendra Davies 12/02/17 02:53> Neurological:: Patient is alert <Kendra Davies 12/02/17 02:53> Psychiatric:: Patient exhibits, appropriate attention <Kendra Davies 02:53> - Extremities Exam Extremities exam: Present: other (open wounds to the posterior heels - necrosis present) <Kendra Davies 12/02/17 02:53> - Neurological Exam Neurological exam: Absent: oriented X3 (oriented to self. Able to tell me the year and his Bday but unable to tell me the name of his daughter and SO) < Kendra Davies 12/02/17 02:53> Course Vital Signs Temperature 98.7 F 12/01/17 23:10 Pulse Rate 95 12/01/17 23:10 Respiratory Rate 18 12/01/17 23:10 Blood Pressure 115/58 12/01/17 23:10 Pulse Oximetry 98 12/01/17 23:10 Temperature 98.7 F 12/01/17 23:10 Pulse Rate 97 12/02/17 01:27 Respiratory Rate 18 12/01/17 23:10 Blood Pressure 116/59 12/02/17 01:27 Pulse Oximetry 94 12/02/17 01:27 <Willam William - 12/02/17 01:47> Weakness - MDM Narrative Medical decision making narrative: Patient has been having significant agitation and combativeness with any attempted IVs or diagnostic testing has been done. Dressing the situation with the family, we will give the patient 1 mg Ativan and 1 mg Haldol IM to help calm him down, and hopefully successfully achieve an IV, lab draw, and CT head. One hour after Ativan and Haldol patient was still quite aggressive to any interventions. Patient is given ketamine 75 mg to help with anxiety prior to CT scan attempts Patient given 1 L normal saline IV fluid bolus CT head normal, no acute abnormalities CT A/P - moderate air in the bowel, moderate stool in the colon, mild splenomegaly, otherwise normal. Patient does have a slightly dilated appendix, with no signs of appendicitis. CBC - normal CMP -normal Magnesium - normal UA - highly concentrated, otherwise normal Case is discussed with Dr. Masoud Wright, who is accepting the patient for inpatient admission for continued IV fluids, wound care, and disposition for worsening dementia <Willam William - 12/02/17 04:45> Case handed over to Dr. William prior to any imaging or labs being resulted. <Kendra Davies - 12/02/17 02:53> - Lab Data Result diagrams: 12/02/17 04:00 12/02/17 04:00 <Willam William 12/02/17 04:45> Disposition Clinical Impression: Dementia Qualifiers: Dementia type: unspecified type Dementia behavioral disturbance: with behavioral disturbance Qualified Code(s): F03.91 - Unspecified dementia with behavioral disturbance Chronic foot ulcer Qualifiers: Laterality: unspecified laterality Non-pressure ulcer stage: with fat layer exposed Qualified Code(s): L97.502 - Non-pressure chronic ulcer of other part of unspecified foot with fat layer exposed <Willam William - 12/02/17 04:45> [place] [facility] [place] <Willam William - 12/02/17 04:45> Condition: Stable <Willam William 12/02/17 04:45> Instructions: <Willam William 12/02/17 04:45> Prescriptions: No Action Acetaminophen 650 mg PO TID PRN 14 Days #0 PRN Reason: PAIN Levothyroxine Sodium [Synthroid] 100 mcg PO ACB Quetiapine Fumarate [Seroquel] 200 mg PO DAILY Folic Acid [Folate] 1 tab PO DAILY Docusate Sodium [Colace] 1 cap PO DAILY Mirtazapine [Remeron] 15 mg PO HS Pantoprazole Tab [Protonix] 20 mg PO BID Insulin Glargine,Hum.rec.anlog [Lantus] 17 unit SQ HS Quetiapine Fumarate [Seroquel] 100 mg PO BID <Willam William - 12/02/17 04:45> Referrals: Chip Salmeron DO [Primary Care Provider] - <Willam William 12/02/17 04:45> Forms: <Willam William 12/02/17 04:45> - Seen By: physician <Willam William 12/02/17 04:45>
[2017-12-02] MEDS ORDERED: HALOPERIDOL 5 MG/ML INJECTION IM ONE (01:43)
[2017-12-02] MEDS ORDERED: KETAMINE 500 MG/10 ML INJECTION IVP ONE (03:31)
[2017-12-02] MEDS: SALINE FLUSH 10ml SYRINGE IVF PRN ×3 (03:33→11:27)
[2017-12-02] MEDS: NS 1,000 ML IV SCH ×6 (04:04→21:01)
[2017-12-02] MEDS ORDERED: ONDANSETRON 4 MG/2 ML INJECTION IVP PRN (05:28)
[2017-12-02] MEDS ORDERED: MORPHINE SULFATE 2mg INJECTION IVP PRN (05:28)
[2017-12-02] MEDS ORDERED: HALOPERIDOL 5 MG/ML INJECTION IVP PRN (05:28)
[2017-12-02] MEDS ORDERED: ACETAMINOPHEN 325 MG TABLET PO PRN (05:28)
--- NOTE | 2017-12-02 05:53 | History & Physical Report ---
History of Present Illness Date: 12/02/17 Chief complaint: increased agitation HPI: This is a 72 y/o male with a history of dementia unspecified. The patient had been admitted to [facility] geriatric psych facility 4 weeks ago and the family removed from the facility 2 weeks ago. Since then his behavior is worsening and He is brought out tonight because of his increased aggressiveness. In the ED the patent's vitals are stable. CT head and abdomen/pelvis are negative for acute disease. The Patient required haldol, altivan and ketamine to be able to image. The pateint has wounds on his heel and right lat malleolus that have been worsening per family. At this time the patient is unable to go home He will be admitted for further wound assessment and case management input. Review of Systems Review of systems: not able to obtain per patients mental status. Past Medical History Medical History Updates: patient denies medical probems. dmentia otherwise Surgical History: partial hip replacement R hip, cataract surgery, lipoma removals,radial keratotomy Family History Updates: unkown at this time Family History: As Above - Social History Smoking status: Never smoker Alcohol intake frequency: does not drink Housing: house Household members: spouse Current occupational status: retired Medications Home Medications Medication Instructions Recorded Confirmed Type Acetaminophen 650 mg PO TID PRN 14 Days #0 12/08/15 12/02/17 Rx Docusate Sodium [Colace] 1 cap PO DAILY 12/02/17 12/02/17 History Folic Acid [Folate] 1 tab PO DAILY 12/02/17 12/02/17 History Insulin Glargine,Hum.rec.anlog 17 unit SQ HS 12/02/17 12/02/17 History [Lantus] Levothyroxine Sodium [Synthroid] 100 mcg PO ACB 12/02/17 12/02/17 History Mirtazapine [Remeron] 15 mg PO HS 12/02/17 12/02/17 History Pantoprazole Tab [Protonix] 20 mg PO BID 12/02/17 12/02/17 History Quetiapine Fumarate [Seroquel] 100 mg PO BID 12/02/17 12/02/17 History Quetiapine Fumarate [Seroquel] 200 mg PO DAILY 12/02/17 12/02/17 History Allergies Allergy/AdvReac Type Severity Reaction Status Date / Time aspirin Allergy Severe Vomiting Verified 12/02/17 01:23 Pork/Porcine Containing Allergy Mild Verified 12/02/17 01:22 Products fentanyl Allergy Unknown Verified 12/02/17 01:23 risperidone [From Risperdal] Allergy Unknown Verified 12/02/17 01:23 Exam Vital Signs: Temperature 97.7 F 12/02/17 05:27 Pulse Rate 90 12/02/17 05:27 Respiratory Rate 16 12/02/17 05:42 Blood Pressure 137/69 12/02/17 05:27 Pulse Oximetry 98 12/02/17 05:27 Telemetry Rhythm: Sinus Rhythm Height/Weight/BMI: Height 1.83 m Weight 74.4 kg Body Mass Index 22.2 - Constitutional Present: mild distress, well nourished, well developed, thin, disheveled, agitated - Routine HEENT Exam Head: Present: normocephalic, atraumatic Eye: Present: EOMI ENT: Present: mucous membranes moist - Routine Neck Exam Present: supple, full ROM - Routine Respiratory Exam Present: CTA bilaterally - Routine Cardiovascular Exam Present: RRR, no murmur - Routine Abdominal Exam Present: soft, non distended, non tender - Routine Back/Spine/Pelvis Exam Back/Spine: Present: full ROM - Routine Skin Exam Present: intact, dry Comments: please see nursing notes. both heels had dry escar present about 5 cm each. right lat malleolus has a breakdown as well. about 3 cm - Routine Neurological Exam Present: alert, altered mental status, moving all extremities, normal tone, vision grossly intact, hearing grossly intact, normal speech - Routine Psychiatric Exam Comments: patient currently is much more cooperative than in the ED. patient is not oriented to time or place, knows his name. he has poor eye contact. somewhat agiated posture. Results - Labs CBC & Chem 7: 12/02/17 04:00 12/02/17 04:00 Labs: reviewed and will be discussed below Assessment and Plan (1) Chronic foot ulcer Current visit: Yes Status: Acute (2) Dementia Current visit: Yes Status: Acute (3) DM type 2 (diabetes mellitus, type 2) Current visit: Yes Status: Acute (4) Hypothyroid Current visit: Yes Status: Acute (5) Normocytic anemia Current visit: Yes Status: Acute Assessment and Plan: 1. Dementia with accelerated behavior acute on chronic POA: patient's behavior is worsening. on seroquel at night. will add haldol prn and ativan prn. needs psych consult today to review meds and make further recommendations. Behavior is preventing patient to safely stay at home 2. Wounds heels and lat malleolus acute on chronic POA: wound care consult. 3 . Dehydration acute POA: fluids 4. DM2 chronic POA: correctional plan 5. Hypothyroid chroniic POA: check TSH 6. DVT ppx; SCD, loveonx 7. social: patient needs placement. failed [employer]. Apparently eval by [facility] and declined. defer to keycase assembler Jes ASSESSMENT Encephalopathy vs Dementia with behavioral dyscontrol Electrolytes and blood counts (other than chronic anemia) normal. Not seeing obvious source of systemic infection/inflammation. Chronic wounds to heal and lateral malleolus Constipation Dehydration Type II DM Hypothyroidism Anemia - suspect chronic disease Gen debility Functional decline at home Plan Inpatient admission to [facility] [place] secondary to concern for worsening encephalopathy and care failure in outpatient setting. Initiate IVF for NS for hydration, monitoring volume status. Wound consult for chronic leg wounds. Psych consult for devaluation of dementia with declining functional status and worsening behaviors. Continue with home medications. PT/OT eval and treat due to functional decline. Monitor sugars secondary to diabetes and Lantus use. Work on bowel motivation - prn MOM and Dulcolax in addition to starting routine Miralax. Haldol and lorazepam as needed for increased agitation and behaviors. Monitor lab. SCD for DVT prevention. Full code ordered. Care to return to Dr Salmeron at time of discharge from [facility] [place]. DVT Prophylaxis: SCD's, Lovenox Resuscitation Status: Full Code - Time spent with patient Time with patient PN: 30 minutes - Physician Narrative Physician: Gabriel Andre MD Narrative: Date: 12/02/17 Time: 1552 JES Have independently interviewed and examined pt. Chart reviewed. Above note reviewed and concur. CC: Weakness, behavioral problems. HPI: 72 y/o male presents to ER via EMS secondary to declining psychiatric and physical status. Does have underlying dementia. Patient has not been eating/ drinking well in past several days. No stools reported for 5 days. Increasing behavioral problems. Apparently hospitalized at [facility] about 1 month ago secondary to leg ulcers. Was discharged to Behavior care unit in [facility] post discharge. Was there about 2 week and then family took him home. Overall status of patient declining in the 2 weeks since home. Presents to ED for evaluation. Very agitated an resistant to care in ED. Needed multiple medication to calm him prior to CT brain being performed. History obtained from chart. Patient's dementia limits accurate details. Will answer questions with yes/no or very simple phrases. Denies feeling acutely sick or weak. Reports breathing well-no cough or congestion. Denies chest pain. Denies ab pain or nausea. Very resistent to nursing care this morning-would holler out frequently. Ativan 0.5mg did help to calm him. At time of my interview and exam, patient resting in bed. Would awaken to verbal stimuli. PHMx: Dementia, Type II DM-IR, Hypothyroid, Hx Esophagitis PSxHx: Hip replacement, lipoma removal. ALL: See MAR Med: see MAR SHx: No smoke/ETOH. Resides with family. Dr Salmeron listed as PCP FHx: CAD from chart. Not able to obtain from patient. ROS: As in HPI. Denies symptoms; dementia limits accuracy of ROS EXAM GEN: WDWN male, somnolent but ready awakens HEENT: NC/AT PERRLA EOMI MMM Neck: Supple, trachea midline CV: regular LUNGS: decreased bilaterally but clear. No crackles or wheezes. Breaths comfortably on RA AB: soft nt/nd BS present. No guarding EXT: thin and without edema. SCD present Neuro: CN II-XII appear intact. Moves ext spontaneously PSYCH: somnolent, but awakens. Answers questions with yes/no and brief phrases SKIN: warm and dry MS: decreased muscle mass of upper and lower ext ASSESSMENT Encephalopathy vs Dementia with behavioral dyscontrol Electrolytes and blood counts (other than chronic anemia) normal. Not seeing obvious source of systemic infection/inflammation. Chronic wounds to heal and lateral malleolus Constipation Dehydration Type II DM Hypothyroidism Anemia - suspect chronic disease Gen debility Functional decline at home Plan Inpatient admission to [facility] [place] secondary to concern for worsening encephalopathy and care failure in outpatient setting. Initiate IVF for NS for hydration, monitoring volume status. Wound consult for chronic leg wounds. Psych consult for devaluation of dementia with declining functional status and worsening behaviors. Continue with home medications. PT/OT eval and treat due to functional decline. Monitor sugars secondary to diabetes and Lantus use. Work on bowel motivation - prn MOM and Dulcolax in addition to starting routine Miralax. Haldol and lorazepam as needed for increased agitation and behaviors. Monitor lab. SCD for DVT prevention. Full code ordered. Care to return to Dr Salmeron at time of discharge from [facility] [place]. Hospital Course Summary Disclaimer: The visit summary below is not to be considered part of the above Progress Note. Hospital Course: 12/02/17 Inpatient admission to [facility] [place] secondary to concern for worsening encephalopathy and care failure in outpatient setting. Initiate IVF for NS for hydration, monitoring volume status. Wound consult for chronic leg wounds. Psych consult for devaluation of dementia with declining functional status and worsening behaviors. Continue with home medications. PT/OT eval and treat due to functional decline. Monitor sugars secondary to diabetes and Lantus use. Work on bowel motivation - prn MOM and Dulcolax in addition to starting routine Miralax. Haldol and lorazepam as needed for increased agitation and behaviors. Monitor lab. SCD for DVT prevention. Full code ordered. Care to return to Dr Salmeron at time of discharge from [facility] [place].
[2017-12-02] MEDS ORDERED: FALL RISK - PHARMACY CONSULT MC ONE (05:55)
[2017-12-02] MEDS: LEVOTHYROXINE 100 MCG TABLET PO SCH (06:28)
[2017-12-02] MEDS ORDERED: LEVOTHYROXINE 75 MCG TABLET PO SCH (06:30)
--- NOTE | 2017-12-02 07:56 | CT Scan Report ---
Indication: sbo PROCEDURE: CT abdomen pelvis wo con: Encounter: Initial Comparison: Renal CT dated November 02, 2015 Technique: Axial CT images were performed through the abdomen and pelvis without intravenous contrast. Coronal and sagittal two-dimensional reformats. Automated Exposure Control and Iterative Reconstruction dose reducing techniques were utilized. Findings: Lung bases are grossly clear. The unenhanced contours of the liver are unremarkable. Granulomas in the spleen. The pancreas is normal. The adrenal glands and kidneys are normal. No abdominal or pelvic lymphadenopathy. Metallic artifact from a right hip prosthesis. Moderate stool in the colon. No evidence of a small bowel obstruction. Multiple gas-filled loops of small bowel without dilatation. Bone windows show no acute findings. Impression: No evidence of acute obstruction. No acute disease process seen. There is a preliminary report by [employer]. .
--- NOTE | 2017-12-02 07:57 | CT Scan Report ---
Indication: mental status change PROCEDURE: CT head/brain wo con: Encounter: Initial Comparison: None Technique: Axial CT images through the head were performed without contrast. Iterative Reconstruction dose reducing technique was utilized. FINDINGS: Mild generalized atrophy. The ventricles are prominent but roughly proportional to atrophy. There are scattered areas of low attenuation in the white matter which most likely represent changes from chronic microvascular ischemia. The brainstem, cerebellum, and cerebral hemispheres otherwise have a normal morphology and CT attenuation. There is no evidence of midline displacement. No hemorrhage, signs of acute territorial stroke, mass effect, mass lesions, or edema is evident. The visualized portions of the skull base, midface, and calvarium demonstrate no abnormality. The tympanic and mastoid cavities appear normal. IMPRESSION: No acute intracranial abnormality or hemorrhage. There is a preliminary report by [facility]. .
--- NOTE | 2017-12-02 07:58 | XRay Report ---
Indication: altered mental status PROCEDURE: XR chest 1V: Encounter: Initial Comparison: September 18, 2017 Findings: Lungs are hypoinflated with minimal basilar atelectasis. No pleural effusion or pneumothorax. Heart size and mediastinal contours are stable. Pulmonary vascularity is grossly normal. Impression: Hypoinflation without acute cardiopulmonary disease. .
--- NOTE | 2017-12-02 07:58 | XRay Report ---
Indication: constipation PROCEDURE: XR KUB: Encounter: Initial Comparison: CT abdomen and pelvis from the same date Findings: Diffuse gaseous distention of small and large bowel. Small bowel loops are seen at 2.7 cm in diameter. Diffuse colonic gas present. Lung bases are grossly clear. Moderate stool in the colon. Right hip replacement. Impression: Diffuse gaseous dilatation of bowel could represent an ileus or gastroenteritis. .
[2017-12-02] MEDS ORDERED: PANTOPRAZOLE 20 MG TABLET PO SCH (09:00)
[2017-12-02] MEDS: ENOXAPARIN 40 MG/0.4 ML INJECTION SQ SCH (09:41)
[2017-12-02] MEDS: POLYETHYL GLYCOL 3350 17gm PACKET PO SCH (09:42)
[2017-12-02] MEDS: QUETIAPINE 100 MG TABLET PO SCH ×2 (09:42→21:34)
[2017-12-02] MEDS ORDERED: BISACODYL 10 MG SUPPOSITORY RECTALLY PRN (11:11)
[2017-12-02] MEDS: PANTOPRAZOLE 20 MG TABLET PO SCH (18:34)
[2017-12-03] MEDS: NS 1,000 ML IV SCH ×4 (00:59→21:29)
[2017-12-03] MEDS: PANTOPRAZOLE 20 MG TABLET PO SCH ×2 (05:38→16:57)
[2017-12-03] MEDS: LEVOTHYROXINE 100 MCG TABLET PO SCH (05:38)
[2017-12-03] MEDS: POLYETHYL GLYCOL 3350 17gm PACKET PO SCH (09:03)
[2017-12-03] MEDS: ENOXAPARIN 40 MG/0.4 ML INJECTION SQ SCH (09:04)
[2017-12-03] MEDS: QUETIAPINE 100 MG TABLET PO SCH (09:04)
--- NOTE | 2017-12-03 10:41 | Progress Note ---
- Date 12/03/17 Subjective: Chacho is seen this morning in follow . He does know what year it is and who is the present however otherwise is pleasantly confused. He is up in the chair following breakfast. He is alert, however answers "yes" to all questions other than having pain. He does not appear to be in any distress breathing on room air. Chronic Bilateral foot wounds- Right lateral malleolus and left heel both with black necrotic center. He remains afebrile and vitals are normal. Objective Vital signs: Temperature 98.1 F 12/03/17 07:39 Pulse Rate 90 12/03/17 07:39 Respiratory Rate 16 12/03/17 07:39 Blood Pressure 133/65 12/03/17 07:39 Pulse Oximetry 96 12/03/17 07:39 Height/Weight/BMI: Height 1.83 m Weight 78.1 kg Body Mass Index 22.2 - Constitutional Present: no acute distress, well nourished, well developed - Routine HEENT Exam Eye: Present: EOMI ENT: Present: mucous membranes moist, dentition normal - Routine Respiratory Exam Present: CTA bilaterally. Absent: wheezes - Routine Cardiovascular Exam Present: RRR, S1, S2. Absent: murmur - Routine Abdominal Exam Present: soft, normoactive bowel sounds, non distended. Absent: tenderness - Routine Extremities Exam Present: normal capillary refill - Routine Skin Exam Present: intact, dry, warm - Routine Neurological Exam Present: alert, oriented X3, CN II-XII intact, moving all extremities - Routine Lymphatic Exam Lymphatic: Absent: adenopathy - Routine Psychiatric Exam Present: normal affect Results - Labs CBC & Chem 7: 12/03/17 04:19 12/03/17 04:19 Assessment and Plan (1) Dementia Problem details: With delirium/encephalopathy Current visit: Yes Status: Acute (2) Chronic foot ulcer Problem details: With necrosis and bilateral heels, right lateral malleolus Current visit: Yes Status: Acute Assessment and Plan: Impression Encephalopathy vs Dementia with behavioral dyscontrol Electrolytes and blood counts (other than chronic anemia) normal. Not seeing obvious source of systemic infection/inflammation. Chronic wounds to Left heal and Right lateral malleolus Constipation Dehydration Type II DM Hypothyroidism Anemia - suspect chronic disease Gen debility Functional decline at home 12/03/17 Wound consult for chronic leg wounds. Noted to have necrotic centers Bowels are moving normally PT/OT eval and treat due to functional decline. Monitor sugars secondary to diabetes and Lantus use. Psych consult for devaluation of dementia with declining functional status and worsening behaviors. Haldol and lorazepam as needed for increased agitation and behaviors. DVT Prophylaxis: Lovenox Resuscitation Status: Full Code - Physician Narrative Physician: Kelly Lopez MD Narrative: Date: 12/03/17 Time: 1630 I have independently evaluated and examined this patient. I reviewed the chart, the patient's history, and the [employer]NAGER/PA's documented findings as above. We discussed and formulated the assessment and plan as above with additions as below: Mr. Mayorga was resting comfortably in bed when seen and reported that he was tired and wanted to sleep. He subsequently indicated that his right foot was painful when I attempted to look at wounds on his right foot and told me that he didn't want any help and asked that I leave him alone. He did not answer other questions regarding his health or symptoms in the intervening time. NAD, limited speech fluent; nursing reports patient was oriented 3 on initial evaluation this morning Dry necrotic ulcerations of both heels and 1-1.5 cm ulceration with central necrosis right lateral malleolus with small rim of erythema; no drainage at any of the ulcerated sites. Movement of the right leg/foot appears to be painful but patient does not lateral further examination to better localize the source of pain. CRP 60.8 Hemoglobin has ranged from 9.3-14.9 over the past 2 years, low-nl MCV X-rays of right ankle and left foot reviewed by myself-no obvious bony pathology. Discussed with Dr. No-for MRI of both ankles; elevated CRP noted. May require surgical debridement. Check iron studies in addition to B-12. Hospital Course Summary Disclaimer: The visit summary below is not to be considered part of the above Progress Note. Hospital Course: 12/02/17 [place]patient [place] [facility] [place] concern for worsening encephalopathy and care failure in outpatient setting. Initiate IVF for NS for hydration, monitoring volume status. Wound consult for chronic leg wounds. Psych consult for devaluation of dementia with declining functional status and worsening behaviors. Continue with home medications. PT/OT eval and treat due to functional decline. Monitor sugars secondary to diabetes and Lantus use. Work on bowel motivation - prn MOM and Dulcolax in addition to starting routine Miralax. Haldol and lorazepam as needed for increased agitation and behaviors. Monitor lab. SCD for DVT prevention. Full code ordered. Care to return to Dr Salmeron at time of discharge from [facility] 12/03/17 Wound team to evaluate bilateral lower ext today. Psychiatric consultation. Overall blood counts and electrolytes are normal.
[2017-12-03] MEDS ORDERED: MORPHINE SULFATE 4mg INJECTION IVP PRN (12:25)
--- NOTE | 2017-12-03 13:02 | Orthopedic Consult Note ---
Orthopedic Consultation HPI - Consultation Info Consult Date: 12/03/17 Attending Physician: Kelly Lopez MD - History of Present Illness This is a 72 y/o male with a history of dementia unspecified. The patient had been admitted to [facility] psych facility 4 weeks ago and the family removed from the facility 2 weeks ago. Since then his behavior is worsening and He is [place] [facility] [place] because of his increased aggressiveness. In the ED , the Patient required haldol, altivan and ketamine to be able to image. The patient has chronic wounds on his left heel and right lateral malleolus and right lat malleolus that have been worsening per family. CRP 80.6. Xray images were obtained and were unremarkable. Patient is agitated when visited and asks me to leave the room. Review of Systems - Constitutional Constitutional: Present: as per HPI - Musculoskeletal Musculoskeletal: Present: as per HPI - Integumentary/Breasts Integumentary: Present: as per HPI PFSH Patient Stated Medical History Cataracts Yes Hypotension Yes Diabetes Mellitus Type 2 Yes Gastroesophageal Reflux Yes Disease Other GI Yes: GI BLEED HX Hx Incontinence Yes Hx Urinary Tract Infection Yes: FREQUENT Medical History Updates: patient denies medical probems. dmentia otherwise Surgical History: partial hip replacement R hip, cataract surgery, lipoma removals,radial keratotomy Family History Updates: unkown at this time - Social History Smoking status: Never smoker Substance use type: does not use Alcohol intake frequency: does not drink Housing: house Household members: spouse Current occupational status: retired Current residence: Apartment/Private Home Medications Home Medications Medication Instructions Recorded Confirmed Type Acetaminophen 650 mg PO TID PRN 14 Days #0 12/08/15 12/02/17 Rx Docusate Sodium [Colace] 1 cap PO DAILY 12/02/17 12/02/17 History Folic Acid [Folate] 1 tab PO DAILY 12/02/17 12/02/17 History Insulin Glargine,Hum.rec.anlog 17 unit SQ HS 12/02/17 12/02/17 History [Lantus] Levothyroxine Sodium [Synthroid] 100 mcg PO ACB 12/02/17 12/02/17 History Mirtazapine [Remeron] 15 mg PO HS 12/02/17 12/02/17 History Pantoprazole Tab [Protonix] 20 mg PO BID 12/02/17 12/02/17 History Quetiapine Fumarate [Seroquel] 100 mg PO BID 12/02/17 12/02/17 History Quetiapine Fumarate [Seroquel] 200 mg PO DAILY 12/02/17 12/02/17 History Allergies Allergy/AdvReac Type Severity Reaction Status Date / Time aspirin Allergy Severe Vomiting Verified 12/02/17 01:23 Pork/Porcine Containing Allergy Mild Verified 12/02/17 01:22 Products fentanyl Allergy Unknown Verified 12/02/17 01:23 risperidone [From Risperdal] Allergy Unknown Verified 12/02/17 01:23 Exam - Constitutional Vital Signs: Temperature 98.1 F 12/03/17 07:39 Pulse Rate 90 12/03/17 07:39 Respiratory Rate 16 12/03/17 07:39 Blood Pressure 133/65 12/03/17 07:39 Pulse Oximetry 96 12/03/17 07:39 General: uncooperative, other (agitated) Nutritional Appearance: average body habitus Orientation: alert - Psych Mood: irritable Attitude: avoids eye contact - RLE Skin: other (Right lateral mallelous wound with black eschar centrally with surround yellow slough, mild erythema surround entire wound base. Left heel with black eschar and surrounding erythema ) - Respiratory Respiratory Exam: non-labored - Cardiac Cardiovascular exam: pedal pulses intact - Labs Result Diagrams: 12/03/17 04:19 12/03/17 04:19 Abnormal lab results 12/03/17 12/03/17 12/03/17 Range/Units 04:19 04:19 04:19 RBC 3.50 L (4.50-5.90) M/MM3 Hgb 9.4 L D (13.5-17.5) GM/DL Hct 29.5 L (41-53) % MPV 8.4 L (9.4-12.4) UM3 Neut % (Auto) 68.0 H (33-66) % Lymph % (Auto) 22.6 L (23-45) % Chloride 112 H (98-107) MEQ/L Carbon Dioxide 20 L (22-30) MEQ/L Calcium 8.2 L (8.4-10.2) MG/DL C-Reactive Protein 60.8 H (0-9) mg/L TSH 6.44 H D (0.47-4.68) mIU/L H & H 12/03/17 Range/Units 04:19 Hgb 9.4 L D (13.5-17.5) GM/DL Hct 29.5 L (41-53) % Impression and Recommendation (1) Chronic foot ulcer Current visit: Yes Qualifiers: Laterality: unspecified laterality Non-pressure ulcer stage: with fat layer exposed Qualified Code(s): L97.502 - Non-pressure chronic ulcer of other part of unspecified foot with fat layer exposed Status: Acute Recommend MRI of bilateral feet to evaluate for osteomyelitis- after reviewed. Will consider NPO after midnight and take patient to OR tomorrow for I&D of wounds and possible wound vac placement. Recommend heel savers or pillows underneath calves to offload pressure on these wounds. Thank you for the consultation. Hospital Course Summary Disclaimer: The visit summary below is not to be considered part of the above Progress Note. Hospital Course: 12/02/17 [place] [facility] [place] concern for worsening encephalopathy and care failure in outpatient setting. Initiate IVF for NS for hydration, monitoring volume status. Wound consult for chronic leg wounds. Psych consult for devaluation of dementia with declining functional status and worsening behaviors. Continue with home medications. PT/OT eval and treat due to functional decline. Monitor sugars secondary to diabetes and Lantus use. Work on bowel motivation - prn MOM and Dulcolax in addition to starting routine Miralax. Haldol and lorazepam as needed for increased agitation and behaviors. Monitor lab. SCD for DVT prevention. Full code ordered. Care to return to Dr Salmeron at time of discharge from [facility] 12/03/17 Wound team to evaluate bilateral lower ext today. Psychiatric consultation. Overall blood counts and electrolytes are normal.
--- NOTE | 2017-12-03 13:02 | XRay Report ---
Indication: left foot wound PROCEDURE: XR foot LT min 3V: Encounter: Initial Comparison: None Findings: There is no acute fracture, dislocation or malalignment identified. Juxtaarticular osseous erosions overhanging edges in the proximal and distal aspect of the great toe proximal phalanx. Arterial vascular calcifications. Impression: No acute osseous abnormality. Findings of gout. .
--- NOTE | 2017-12-03 13:03 | XRay Report ---
Indication: right ankle wound PROCEDURE: XR ankle RT min 3V: Encounter: Initial Comparison: None Findings: There is no acute fracture, dislocation or malalignment identified. Overlying material causing artifact. Arterial vascular calcifications. No definite periosteal reaction or lytic osseous destruction to suggest osteomyelitis. Impression: No acute osseous abnormality. .
--- NOTE | 2017-12-03 13:34 | Progress Note ---
Progress Note: Psych: I have seen patient and will write full consult note at later time. Uncooperative with interview and nursing staff. Made following med changes for the time being: Scheduled Haldol 1mg IV TID (and discontinued PRN Zofran as patient has not needed it) to target agitation. Held Seroquel to avoid using 2 antipsychotics and as patient has been refusing PO meds.
--- NOTE | 2017-12-03 13:35 | Neuropsychiatric Consult ---
[facility] Date: 12/04/17 Requesting Physician: Gabriel Andre Reason for Consultation: Dementia with behaviors Start Time: 12:00 Stop Time: 12:30 History of Present Illness: Patient is a 72-year-old male with a hx of dementia who was admitted to [facility] [place] on with weakness, bilateral foot wounds and is now being evaluated for osteomyelitis. Patient has reportedly had multiple psych hospitalizations, last ~2 weeks ago at [facility]. It has been recommended to family on multiple occasions that they place him in a nursing facility but they have not done so. Psychiatry was consulted due to declining functional status since that time and worsening behaviors. On the unit here, this has included yelling out, refusal of cares, and intermittent refusal to open eyes/mouth or engage with staff at times (thus refusing meds). On attempt at psychiatric interview, patient is lying in the hospital bed and makes intense eye contact with me but does not respond verbally to any of my attempts at interview. Affect was blunted and patient did not brighten at all when I spoke with him. I attempted to have him follows some commands but he did not engage with me whatsoever outside of eye contact. Patient was most recently taking Seroquel 100mg PO BID but as above, has been intermittently refusing meds. He has PRN IV Haldol and lorazepam available and has been given lorazepam 0.5mg IV once since admission. [facility] Patient Stated Medical History Cataracts Yes Hypotension Yes Diabetes Mellitus Type 2 Yes Gastroesophageal Reflux Yes Disease Other GI Yes: GI BLEED HX Hx Incontinence Yes Hx Urinary Tract Infection Yes: FREQUENT Medical History Updates: patient denies medical probems. dmentia otherwise Surgical History: partial hip replacement R hip, cataract surgery, lipoma removals,radial keratotomy Family History Updates: Unable to obtain family hx from patient - Social History Smoking status: Never smoker Substance use type: does not use Alcohol intake frequency: does not drink Housing: house Household members: spouse Current occupational status: retired Current residence: Apartment/Private Home Social history: Patient lives with family; unable to obtain further hx from patient due to dementia and refusal to participate in interview. Review of Systems ROS unobtainable: due to mental status (and refusal to participate in interview) Mental Status Exam Vitals: Last Vital Signs Temp 98.1 F 12/03/17 07:39 Pulse 90 12/03/17 07:39 Resp 16 12/03/17 07:39 BP 133/65 12/03/17 07:39 Pulse Ox 96 12/03/17 07:39 Height: 1.83 m Weight: 78.1 kg - Mental Status Exam Muscle Strength/Tone: Weak Dressing: Other (Hospital gown) Grooming: Fair Attitude: Uncooperative Motor Activity: Other (Lying in hospital bed, unable to assess) Eye Contact: Other (Intense) Speech: Other (Refuses to speak/engage in interview) Sensory: Alert Orientation: Other (Unable to assess) Mood: Other (Unable to assess mood; affect irritable/labile per nursing staff) Rate of Thoughts: Other (Unable to assess thought contents/process) Abstract Reasoning: Impaired, concrete Perception/Psychotic: Other (Unable to assess, does not appear to be responding to internal stimuli) Fund of Knowledge: Other (Hx of dementia) Suicidal Ideation: None (No concern for SI reported by family/staff) Homicidal Ideation: Other (No concern for HI reported by family/staff but has been refusing cares) Insight: Impaired Judgement: Impaired Impulse Control: Poor - Laboratory Result Diagrams: 12/04/17 04:20 12/04/17 04:20 Laboratory Results - last 24 hr 12/03/17 12/03/17 12/03/17 04:19 04:19 04:19 WBC 8.1 RBC 3.50 L Hgb 9.4 L D Hct 29.5 L MCV 84.3 MCH 26.9 MCHC 31.9 RDW Std Deviation 42.8 Plt Count 338 MPV 8.4 L Immature Gran % (Auto) 0.2 Neut % (Auto) 68.0 H Lymph % (Auto) 22.6 L [place] % (Auto) 6.4 Eos % (Auto) 2.2 Baso % (Auto) 0.6 Neut # (Auto) 5.5 Lymph # (Auto) 1.8 [place] # (Auto) 0.5 Eos # (Auto) 0.2 Baso # (Auto) 0.1 Abs Immat Gran (auto) 0.02 Turbidity < 20 Sodium 144 Potassium 3.6 Chloride 112 H Carbon Dioxide 20 L Anion Gap 12 BUN 12.0 Creatinine 0.8 GFR Calculation 95 BUN/Creatinine Ratio 15 Glucose 78 Calculated Osmolality 276 Calcium 8.2 L Icterus Index < 2 C-Reactive Protein 60.8 H TSH 6.44 H D Specimen Hemolysis < 15 Assessment and Plan (1) Major neurocognitive disorder Problem details: with behavioral disturbance Other medical conditions: r/o Delirium Electrolytes and blood counts (other than chronic anemia) normal. Not seeing obvious source of systemic infection/inflammation. Chronic wounds to Left heal and Right lateral malleolus Constipation Dehydration Type II DM Hypothyroidism Anemia - suspect chronic disease Current visit: Yes Status: Acute Patient is currently being worked up for osteomyelitis so will recommend med changes to help with agitation, behaviors while on medical floor. Since patient is refusing PO meds, will hold PO Seroquel and alternatively schedule Haldol 1mg IV TID (roughly equivalent dose to home antipsychotic dose) with additional PRN IV Lorazepam available. Will continue to follow and make further suggestions as appropriate. Please contact me if you have further questions; thank you for this consult.
[2017-12-03] MEDS ORDERED: HALOPERIDOL 5 MG/ML INJECTION IVP SCH (15:00)
[2017-12-03] MEDS: HALOPERIDOL 5 MG/ML INJECTION IVP SCH ×2 (15:28→21:27)
[2017-12-04] MEDS: NS 1,000 ML IV SCH ×3 (01:39→18:15)
[2017-12-04] MEDS: PANTOPRAZOLE 20 MG TABLET PO SCH ×2 (06:01→17:27)
[2017-12-04] MEDS: LEVOTHYROXINE 100 MCG TABLET PO SCH (06:01)
[2017-12-04] MEDS ORDERED: SALINE FLUSH 10ml SYRINGE ONE (06:54)
[2017-12-04] MEDS ORDERED: GADOTERIDOL 279.3mg/ml - 15ml vial IVP ONE (06:54)
[2017-12-04] MEDS: POLYETHYL GLYCOL 3350 17gm PACKET PO SCH (09:01)
--- NOTE | 2017-12-04 09:20 | Magnetic Resonance Report ---
Indication: necrotic ulcers B-heels, R-lateral malleolus PROCEDURE: MR ankle BI wo/w con: Encounter: Initial Comparison: Right ankle radiographs dated December 03, 2017 Technique: Multiplanar multisequence MR imaging of the both ankles was performed with and without contrast. Contrast: 15 mL ProHance Findings: Right ankle: No acute fracture identified. There is some edema in the distal fibula at the site of skin wound best seen on axial image 18 and coronal image 16. This area also shows mild postcontrast enhancement. No other areas of focal bone marrow edema or enhancement appreciated. Plantar fascia is normal in thickness. Mild motion artifact. Longitudinal split tear of the peroneus brevis tendon above the lateral malleolus. The flexor and extensor tendons appear otherwise grossly intact. No rim-enhancing abscess. Left ankle: The flexor and extensor tendons are grossly intact. Severe motion artifact on several of the sequences limiting the exam. No obvious focal bone marrow edema or enhancement although evaluation is again quite limited due to the severe motion artifact. No displaced fracture. No rim-enhancing abscess appreciated. Impression: Right ankle: Small region of osteomyelitis in the distal lateral fibula. Left ankle: Nearly nondiagnostic exam due to severe motion artifact. No gross bone marrow abnormality. .
[2017-12-04] MEDS: HALOPERIDOL 5 MG/ML INJECTION IVP SCH ×3 (09:25→20:54)
[2017-12-04] MEDS: ENOXAPARIN 40 MG/0.4 ML INJECTION SQ SCH (10:36)
[2017-12-04] MEDS: SALINE FLUSH 10ml SYRINGE IVF PRN (12:59)
--- NOTE | 2017-12-04 13:59 | Progress Note ---
Progress Note: I spoke with patient's nurse, who said it was reported that patient slept well overnight and has been mostly cooperative with her today. Patient did require Ativan 0.5mg IV x1 prior to MRI this AM. Do not recommend further medication changes at this time; will continue to follow patient and make recommendations as appropriate.
--- NOTE | 2017-12-04 15:04 | Anesthesia Preoperative Report ---
Anesthesia Preoperative Record - Date and Time Date: 12/04/17 Preoperative Diagnosis: encephalopathy Proposed Procedure: BL Ankle I & D NPO Since Date: 12/03/17 NPO Since Time: 22:00 Allergies/Adverse Reactions: Allergies Allergy/AdvReac Type Severity Reaction Status Date / Time aspirin Allergy Severe Vomiting Verified 12/02/17 01:23 Pork/Porcine Containing Allergy Mild Verified 12/02/17 01:22 Products fentanyl Allergy Unknown Verified 12/02/17 01:23 risperidone [From Risperdal] Allergy Unknown Verified 12/02/17 01:23 - Vital Signs Vital Signs: Temperature 97.5 F 12/04/17 12:48 Pulse Rate 73 12/04/17 12:48 Respiratory Rate 12 12/04/17 12:48 Blood Pressure 169/78 H 12/04/17 12:48 Pulse Oximetry 96 12/04/17 12:48 Height and Weight: Height 6 ft Weight 77.6 kg Body Mass Index 22.2 - Medications Inpatient Medications: Current Medications Acetaminophen (Tylenol) 500 mg PO Q5H PRN PRN Reason: Discomfort Hydrocodone Bitart/Acetaminophen ([place] 5/325) 1 tab PO Q6H PRN PRN Reason: Pain Bisacodyl (Dulcolax) 10 mg RECTALLY DAILY PRN PRN Reason: Constipation Enoxaparin Sodium (Lovenox) 40 mg SQ DAILY [facility] Last Admin: 12/04/17 10:36 Dose: Not Given Haloperidol Lactate (Haldol) 1 mg IVP TID [facility] Last Admin: 12/04/17 09:25 Dose: 1 mg Sodium Chloride (Normal Saline) 1,000 mls @ 100 mls/hr IV .Q10H [facility] Last Infusion: 12/04/17 12:42 Dose: Infused Sodium Chloride (Normal Saline) 1,000 mls @ 50 mls/hr IV .Q20H [facility] Levothyroxine Sodium (Synthroid) 100 mcg PO ACB [facility] Last Admin: 12/04/17 06:01 Dose: Not Given Lorazepam (Ativan Inj) 0.5 mg IVP Q6H PRN Last Admin: 12/04/17 07:49 Dose: 0.5 mg Lorazepam (Ativan Inj) 1 mg IVP O PRN PRN Reason: Agitation/Restlessness Last Admin: 12/04/17 06:44 Dose: 1 mg Magnesium Hydroxide (Mom) 30 ml PO DAILY PRN PRN Reason: Constipation Morphine Sulfate (Morphine Sulf 2 Mg Inj) 1 - 2 mg IVP Q2H PRN PRN Reason: Pain Morphine Sulfate (Morphine Sulfate Inj) 2 mg IVP Q3H PRN PRN Reason: Pain Pantoprazole Sodium (Protonix) 20 mg PO ACBID [facility] Last Admin: 12/04/17 06:01 Dose: Not Given Polyethylene Glycol (Miralax) 17 gm PO DAILY [facility] Last Admin: 12/04/17 09:01 Dose: Not Given Quetiapine Fumarate (Seroquel) 100 mg PO BID [facility] Last Admin: 12/03/17 09:04 Dose: 100 mg Sodium Chloride (Iv Flush) 10 - 80 ml IVF PRN PRN PRN Reason: Flushing Last Admin: 12/04/17 12:59 Dose: 10 ml Home Medications: Home Medications Medication Instructions Recorded Confirmed Type Acetaminophen 650 mg PO TID PRN 14 Days #0 12/08/15 12/02/17 Rx Docusate Sodium [Colace] 1 cap PO DAILY 12/02/17 12/02/17 History Folic Acid [Folate] 1 tab PO DAILY 12/02/17 12/02/17 History Insulin Glargine,Hum.rec.anlog 17 unit SQ 12/02/17 12/02/17 History [Lantus] Levothyroxine Sodium [Synthroid] 100 mcg PO ACB 12/02/17 12/02/17 History Mirtazapine [Remeron] 15 mg PO HS 12/02/17 12/02/17 History Pantoprazole Tab [Protonix] 20 mg PO BID 12/02/17 12/02/17 History Quetiapine Fumarate [Seroquel] 100 mg PO BID 12/02/17 12/02/17 History Quetiapine Fumarate [Seroquel] 200 mg PO DAILY 12/02/17 12/02/17 History Is Patient on Beta Inessa?: No - Medical History Respiratory: DENIES: Asthma, Bronchitis, Chronic Obstructive Pulmonary Disease (COPD), Dyspnea, Orthopnea, Pulmonary Embolism, Pneumonia, Upper Respiratory Infection, Pulmonary Edema, Sleep Apnea, Tuberculosis, Other Cardiovascular: Reports: Hypotension DENIES: Abnormal EKG, Angina, Arrhythmia, Congestive Heart Failure, Coronary Artery Disease, Heart Murmur, Hypertension, High Cholesterol, Myocardial Infarction, Rheumatic Fever, Valvular Heart Disease, Other Gastrointestional: Reports: Gastroesophageal Reflux Disease, Other (GI BLEED HX) DENIES: Obstructive Bowel, Hepatitis, Cirrhosis, Nausea or Vomiting Present, Gastrointestinal Bleeding, Hiatal Hernia, Ulcer, Morbid Obesity Neuro/Musculoskeletal: Denies: Back Problems, Cerebrovascular Accident, Depression, Headaches, Loss of Consciousness, Muscle Weakness, Neuromuscular Disorder, Paralysis, Paresthesia, Syncope, Seizures, Other Renal/Endocrine: Reports: Diabetes Mellitus Type 2, Thyroid Disease DENIES: Diabetes Mellitus Type 1, Renal Failure, Dialysis, Weight Loss, Weight Gain, Other - Surgical History HEENT Surgeries: Reports: Other (CATARACT SURGERY) Anesthesia Reactions: None Hx Family Anesthesia Reaction: No History of Motion Sickness: No - Social History Smoking Status: Never smoker Hx Chewing Tobacco Use: No Second Hand Exposure: No Substance Use Type: does not use Alcohol Intake: never Alcohol Intake Frequency: does not drink - Pertinent Findings Laboratory: CBC and BMP 12/04/17 04:20 12/04/17 04:20 BMP 12/04/17 04:20 Sodium 141 Potassium 3.6 Chloride 110 H Carbon Dioxide 21 L BUN 8.0 L Creatinine 0.7 L Glucose 122 H Calcium 8.3 L EKG: Sinus Rhythm - Physical Exam Respiratory Exam: Present: lungs clear, bilateral breath sounds equal Cardiovascular Exam: Present: regular rate and rhythm, no murmur - Airway Assessment Mallampati Score: I TMD: 3 Fingerbreadths Neck Extension: good Overall Assessment: no airway concerns - ASA ASA Score: 3 - Plan Anesthesia: General TIVA - Discussion Discussion: Discussed risks/options/alternatives of anesthesia and questions answered. Patient consents. Nursing pain assessment noted. Attestation Statement: Prior to the delivery of any anesthetic medication, I examined the patient, developed the plan, obtained the patient's consent and discussed the risk and benefits of the procedure with the patient/guardian. - Additional Information Seen by Anesthesia: Yes
[2017-12-04] MEDS ORDERED: FentaNYL 250 MCG/5 ML INJECTION ONE (15:41)
[2017-12-04] MEDS ORDERED: KETAMINE 500 MG/10 ML INJECTION ONE (15:44)
[2017-12-04] MEDS ORDERED: PROPOFOL 500 MG/50 ML VIAL ONE (15:44)
[2017-12-04] MEDS ORDERED: MIDAZOLAM 2mg/2ml INJECTION ONE (16:34)
[2017-12-04] MEDS ORDERED: MORPHINE SULFATE 10mg/ml VIAL ONE (16:56)
[2017-12-04] MEDS ORDERED: CEFAZOLIN 1 G INJECTION ONE (16:59)
--- NOTE | 2017-12-04 17:41 | Anesthesia Postoperative Note ---
- Date and Time Date: 12/04/17 Time: 17:40 - Status Patient Participated in Evaluation: Patient Sedated Vital Signs: Temperature 97.4 F 12/04/17 17:25 Pulse Rate 71 12/04/17 17:36 Respiratory Rate 12 12/04/17 17:36 Blood Pressure 84/52 12/04/17 17:36 Pulse Oximetry 99 12/04/17 17:36 Respiratory Function: Airway Patent, Regular Respirations Cardiovascular Function: Regular Pulse EKG: Sinus Rhythm Mental Status: Lethargic Unable to Assess Pain Due to: Patient Sleeping Hydration: IV Infusing Complications During Recover: None Apparent - Follow-Up Instructions Instructions: Per Surgeon
[2017-12-04] MEDS ORDERED: VANCOMYCIN - PHARMACY CONSULT MC ONE (18:05)
--- NOTE | 2017-12-04 18:32 | Progress Note ---
- Date 12/04/17 Subjective: Mr. Mayorga was seen following surgical debridement of his heels and right ankle. He remains sedated at time of my assessment. He has been out of his room between MRI and surgery the majority of the day. Nursing reports that he slept well last night and tolerated MRI after lorazepam although became agitated during the study. Patient expressed frustration that he was unable to eat breakfast this morning. He's had a bowel movement within the past 24 hours and has been voiding spontaneously with incontinence intermittently. He's had no fever and has been oxygenating well on room air. Family has not been at bedside throughout the day. Objective Vital signs: Temperature 97.6 F 12/04/17 17:56 Pulse Rate 77 12/04/17 18:12 Respiratory Rate 13 12/04/17 17:55 Blood Pressure 136/75 12/04/17 18:12 Pulse Oximetry 95 - RA 12/04/17 18:12 Resting comfortably, sedated postoperatively-does not respond to questions or exam Respirations nonlabored, good airflow, breath sounds clear anteriorly Regular rhythm, S1-S2 Abdomen soft, nontender Feet elevated/Loki wraps and surgical dressings in place Height/Weight/BMI: Height 1.83 m Weight 77.6 kg Body Mass Index 22.2 Results - Labs CBC & Chem 7: 12/04/17 04:20 12/04/17 04:20 Labs: Iron studies, B-12, and free T4 pending - Imaging and Cardiology ankle MRIs Status: image reviewed by me (motion artifact on the left but no obvious osteomyelitis per radiology; osteomyelitis identified at the distal lateral fibula corresponding to ulceration at the right lateral malleolus) Assessment and Plan (1) Dementia Problem details: With delirium/encephalopathy Current visit: Yes Status: Acute (2) Chronic foot ulcer Problem details: With necrosis and bilateral heels, right lateral malleolus Current visit: Yes Status: Acute (3) Osteomyelitis of ankle Current visit: Yes Status: Acute Assessment and Plan: Impression Encephalopathy vs Dementia with behavioral dyscontrol Electrolytes and blood counts (other than chronic anemia) normal. Not seeing obvious source of systemic infection/inflammation. Chronic wounds to Left heal and Right lateral malleolus Constipation Dehydration Type II DM Hypothyroidism Anemia - suspect chronic disease Gen debility Functional decline at home Plan Diabetic foot ulcers, osteomyelitis identified at fibular head by MRI. Surgical debridement this afternoon and cultures obtained. Will initiate therapy empirically for diabetic foot ulcers with osteo-with vancomycin and Unasyn pending culture results. Arterial Dopplers will be needed at some point to evaluate for PVD. Monitor sugars secondary to diabetes; Lantus on hold. Haldol and lorazepam as needed for increased agitation and behaviors. - Physician Narrative Narrative: Date: 12/04/17 Time: 1827 Hospital Course Summary Disclaimer: The visit summary below is not to be considered part of the above Progress Note. Hospital Course: 12/02/17 Inpatient admission to [facility] [place] secondary to concern for worsening encephalopathy and care failure in outpatient setting. Initiate IVF for NS for hydration, monitoring volume status. Wound consult for chronic leg wounds. Psych consult for devaluation of dementia with declining functional status and worsening behaviors. Continue with home medications. PT/OT eval and treat due to functional decline. Monitor sugars secondary to diabetes and Lantus use. Work on bowel motivation - prn MOM and Dulcolax in addition to starting routine Miralax. Haldol and lorazepam as needed for increased agitation and behaviors. Monitor lab. SCD for DVT prevention. Full code ordered. Care to return to Dr Salmeron at time of discharge from [facility] [place]. 12/03/17 Wound team to evaluate bilateral lower ext today. Psychiatric consultation. Overall blood counts and electrolytes are normal. 12/04/17 Diabetic foot ulcers, osteomyelitis identified at fibular head by MRI. Surgical debridement this afternoon and cultures obtained. Will initiate therapy empirically for diabetic foot ulcers with osteo-with vancomycin and Unasyn pending culture results. Arterial Dopplers will be needed at some point to evaluate for PVD. Monitor sugars secondary to diabetes; Lantus on hold.
[2017-12-04] MEDS: AMPICILLIN/SULBACTAM 3 G in NS 100 ML IV SCH (19:22)
[2017-12-05] MEDS: AMPICILLIN/SULBACTAM 3 G in NS 100 ML IV SCH ×4 (02:03→18:48)
[2017-12-05] MEDS: LEVOTHYROXINE 100 MCG TABLET PO SCH (06:59)
[2017-12-05] MEDS: PANTOPRAZOLE 20 MG TABLET PO SCH ×2 (06:59→17:37)
--- NOTE | 2017-12-05 07:35 | Pharmacy Consult-Antibiotics ---
Pharmacy Consult-Vancomycin - Laboratory Information WBC 13.1 T/MM3 (4.5-11.0) H D 12/05/17 04:37 BUN 7.0 MG/DL (9-20) L 12/05/17 04:37 Creatinine 0.7 mg/dL (0.8-1.5) L 12/05/17 04:37 - Consult Information VANCOMYCIN CONSULT: Dx:Osteomyelitis Current Renal Fx: SCr =0.7mg/dl. Will give Vancomycin 1,500mg IV q12hrs. Will continue to monitor and adjust regimen to maintain therapeutic levels. Thank you.
[2017-12-05] MEDS: HALOPERIDOL 5 MG/ML INJECTION IVP SCH ×3 (08:51→21:01)
[2017-12-05] MEDS: NS 1,000 ML IV SCH ×3 (08:52→13:38)
--- NOTE | 2017-12-05 09:08 | Operative Note ---
DATE OF PROCEDURE 12/04/2017 PREOPERATIVE DIAGNOSIS Bilateral foot and ankle pressure ulcers. POSTOPERATIVE DIAGNOSIS Bilateral foot and ankle pressure ulcers. PROCEDURE Surgical debridement of bilateral foot and ankle pressure ulcers with bone biopsy of right lateral malleolus. SURGEON Mohit No MD [employer] Tevin Edmondson PA-C COMPLICATIONS None. ANESTHESIA TIVA DESCRIPTION OF PROCEDURE Mr. Mayorga and his bilateral feet were identified and marked in the preoperative holding area. He was brought back to the operating suite and placed supine on the operating table. He was placed under general anesthesia. The lower extremities were prepped and draped in my normal sterile fashion using Betadine scrub. Time-out was performed. I started with the right side. He had a pressure ulcer overlying the lateral malleolus measuring 3.2 x 2.8 cm. Within the wound there was a large black eschar and necrotic subcutaneous tissue. All necrotic tissue was sharply debrided from the wound. There appeared to be a small amount of fascia still overlying the bone after necrotic tissue had been removed. I went through this fascia to perform a bone biopsy of the lateral malleolus using a Bereket needle. This was then passed off and placed into a sterile cup. The depth of the wound after debridement was 5 mm. There was some bleeding on the edges and this was cauterized. I then moved to the right heel wound which was along the lateral heel. It measured 3.7 x 3.0 cm. Again, it had necrotic eschar as well as subcutaneous tissue present within the wound. This was sharply debrided, removing all necrotic tissue. The remaining wound base was fatty-appearing tissue without necrosis. The skin edges themselves were clean. The depth was 3 mm after debridement. I then moved to the left heel. It had a large pressure ulcer over the heel measuring 6.3 cm x 4.5 cm. It, as well, was sharply debrided of all necrotic tissue and again what remained was healthy-appearing subcutaneous fat. The depth was 3 mm after debridement. All three wounds had clean skin edges without signs of necrosis. There was some erythema, especially around the right ankle lateral malleolar wound. All three wounds were thoroughly irrigated and then dressed with Adaptic, 4 x 4s and ABDs and Kerlix. The drapes were removed. He was allowed to awaken from general anesthesia and then taken to the recovery room under the care of Anesthesia. He tolerated the procedure well. There were no complications. AICHA
[2017-12-05] MEDS: POLYETHYL GLYCOL 3350 17gm PACKET PO SCH (10:41)
[2017-12-05] MEDS: ENOXAPARIN 40 MG/0.4 ML INJECTION SQ SCH (10:41)
--- NOTE | 2017-12-05 11:51 | Progress Note ---
- Date 12/05/17 Subjective: Chacho is seen today in follow up. He is alert, answers questions in a yes/no fashion, so difficult to determine orientation. Denies pain. Chart reviewed for collateral information. Objective Vital signs: Temperature 98.1 F 12/05/17 07:18 Pulse Rate 101 H 12/05/17 07:18 Respiratory Rate 16 12/05/17 07:18 Blood Pressure 134/67 12/05/17 07:18 Pulse Oximetry 94 12/05/17 07:18 Height/Weight/BMI: Height 1.83 m Weight 78 kg Body Mass Index 22.2 - Constitutional Present: no acute distress, average body habitus Comments: Irritable, but cooperative. - Routine HEENT Exam Head: Present: normocephalic, atraumatic Eye: Present: EOMI, PERRL ENT: Present: mucous membranes dry - Routine Respiratory Exam Present: CTA bilaterally. Absent: rales, rhonchi, wheezes - Routine Cardiovascular Exam Present: RRR, S1, S2, no murmur - Routine Abdominal Exam Present: soft, normoactive bowel sounds, non distended, non tender - Routine Extremities Exam Present: edema (Trace LE edema. ), pulses intact (Chronic discoloration c/w PAD. Feet are warm. ) - Routine Musculoskeletal Exam Musculoskeletal: Present: moving extremities well - Routine Skin Exam Present: dry, warm - Routine Neurological Exam Present: alert. Absent: oriented X3 - Routine Psychiatric Exam Comments: Irritable, does not speak much. Results - Labs CBC & Chem 7: 12/05/17 04:37 12/05/17 04:37 Microbiology Results: Microbiology 12/04/17 17:05 Ankle, Right, Bone Surgical Culture - Preliminary Culture Initiated - Results Pending Assessment and Plan (1) Dementia Problem details: With delirium/encephalopathy Current visit: Yes Status: Acute (2) Chronic foot ulcer Problem details: With necrosis and bilateral heels, right lateral malleolus Current visit: Yes Status: Acute (3) Osteomyelitis of ankle Current visit: Yes Status: Acute Assessment and Plan: Impression Encephalopathy vs Dementia with behavioral dyscontrol Electrolytes and blood counts (other than chronic anemia) normal. Not seeing obvious source of systemic infection/inflammation. Chronic wounds to Left heal and Right lateral malleolus Constipation Dehydration Type II DM Hypothyroidism Anemia - suspect chronic disease Gen debility Functional decline at home Plan 12/05/2016 Diabetic foot ulcers, osteomyelitis identified at fibular head by MRI. Surgical debridement and cultures obtained- still pending. Continue broad spectrum coverage for diabetic foot ulcers with osteo-with vancomycin and Unasyn pending culture results. Arterial Dopplers will be needed at some point to evaluate for PVD- extremities are warm currently. Monitor carefully. Exam c/w chronic vascular disease. Mild increase in leukocytosis- suspect due to debridement yesterday. Afebrile. Monitor sugars secondary to diabetes; Lantus on hold. BG remains fairly well controlled on current. Haldol and lorazepam as needed for increased agitation and behaviors. Psych following. DVT Prophylaxis: Lovenox Resuscitation Status: Full Code - Physician Narrative Physician: Kelly Lopez MD Narrative: Date: 12/05/17 Time: 2229 I have independently evaluated and examined this patient. I reviewed the chart, the patient's history, and the [employer]/PA's documented findings as above. We discussed and formulated the assessment and plan as above with additions as below: Chacho was seen earlier today and reported having no pain in his legs or difficulty breathing. I advised him of the bone infection in his right ankle and he asked that he be given a strong antibiotic pills to treat it but told me he doesn't want any IVs. Patient was pleasant and cooperative while I visited with him-after brief exam he told me to please leave. NAD, alert Respirations nonlabored, anterior breath sounds clear, regular cardiac rhythm Both feet elevated, dressings in place Surgical culture pending; continue vancomycin/Zosyn pending further data. Repeat CRP on Friday. Discussed with Dr. No earlier today. Hospital Course Summary Disclaimer: The visit summary below is not to be considered part of the above Progress Note. Hospital Course: 12/02/17 [place] [facility] [place] concern for worsening encephalopathy and care failure in outpatient setting. Initiate IVF for NS for hydration, monitoring volume status. Wound consult for chronic leg wounds. Psych consult for devaluation of dementia with declining functional status and worsening behaviors. Continue with home medications. PT/OT eval and treat due to functional decline. Monitor sugars secondary to diabetes and Lantus use. Work on bowel motivation - prn MOM and Dulcolax in addition to starting routine Miralax. Haldol and lorazepam as needed for increased agitation and behaviors. Monitor lab. SCD for DVT prevention. Full code ordered. Care to return to Dr Salmeron at time of [place] [facility] [place] 12/03/17 Wound team to evaluate bilateral lower ext today. Psychiatric consultation. Overall blood counts and electrolytes are normal. 12/04/17 Diabetic foot ulcers, osteomyelitis identified at fibular head by MRI. Surgical debridement this afternoon and cultures obtained. Will initiate therapy empirically for diabetic foot ulcers with osteo-with vancomycin and Unasyn pending culture results. Arterial Dopplers will be needed at some point to evaluate for PVD. Monitor sugars secondary to diabetes; Lantus on hold. Plan 12/05/2016 Diabetic foot ulcers, osteomyelitis identified at fibular head by MRI. Surgical debridement and cultures obtained- still pending. Continue broad spectrum coverage for diabetic foot ulcers with osteo-with vancomycin and Unasyn pending culture results. Arterial Dopplers will be needed at some point to evaluate for PVD- extremities are warm currently. Monitor carefully. Exam c/w chronic vascular disease. Mild increase in leukocytosis- suspect due to debridement yesterday. Afebrile. Monitor sugars secondary to diabetes; Lantus on hold. BG remains fairly well controlled on current. Haldol and lorazepam as needed for increased agitation and behaviors. Psych following.
--- NOTE | 2017-12-05 13:50 | Orthopedic Progress Note ---
Date: Date: 12/05/17 Time: 1344 Subjective/Severity of Illness: Chacho is laying in bed this morning on rounds. Herminia RN with wound clinic at bedside as well to evaluate wounds as well. Patient is alert today and cooperative. Does has bilateral heels off the bed and compliant with pillows under calves. Reports pain with movement of right leg. Exam - Constitutional Vital Signs: Temperature 98.1 F 12/05/17 07:18 Pulse Rate 101 H 12/05/17 07:18 Respiratory Rate 16 12/05/17 07:18 Blood Pressure 134/67 12/05/17 07:18 Pulse Oximetry 94 12/05/17 07:18 General: cooperative, no acute distress, other (agitated) Nutritional Appearance: average body habitus Orientation: alert - Respiratory Respiratory Exam: non-labored - Cardiac Cardiovascular exam: pedal pulses intact - Wound bilateral foot Type of Wound/Ulcer: Pressure Ulcer Wound Dressing: Gauze (adaptic) Wound Drainage Amount: Moderate Wound Drainage Description: Sanguineous Wound Drainage Odor: No Odor Wound Bed Appearance: Beefy Red, Yellow, Slough (wound to right lateral malleolus, right heel and left heel ) - Labs Result Diagrams: 12/05/17 04:37 12/05/17 04:37 Abnormal lab results 12/04/17 12/05/17 12/05/17 Range/Units 04:20 04:37 04:37 WBC 13.1 H D (4.5-11.0) T/MM3 RBC 4.04 L (4.50-5.90) M/MM3 Hgb 10.8 L D (13.5-17.5) GM/DL Hct 32.9 L D (41-53) % MPV 9.3 L (9.4-12.4) UM3 Neutrophils % (Manual) 93.0 H (33-66) % Lymphocytes % (Manual) 6.0 L (23-45) % Neutrophils # (Manual) 12.2 H (1.8-7.7) T/MM3 Lymphocytes # (Manual) 0.8 L (1-4.8) T/MM3 Chloride 110 H (98-107) MEQ/L Carbon Dioxide 20 L (22-30) MEQ/L BUN 7.0 L (9-20) MG/DL Creatinine 0.7 L (0.8-1.5) mg/dL Calcium 8.3 L (8.4-10.2) MG/DL Iron 42 L (49-181) ug/dL Specimen Hemolysis 55 H (0-25) H & H 12/03/17 12/04/17 12/05/17 Range/Units 04:19 04:20 04:37 Hgb 9.4 L D 9.4 L 10.8 L D (13.5-17.5) GM/DL Hct 29.5 L 29.4 L 32.9 L D (41-53) % Orthopedic Assessment and Plan (1) Chronic foot ulcer Status: Acute Qualifiers: Laterality: unspecified laterality Non-pressure ulcer stage: with fat layer exposed Qualified Code(s): L97.502 - Non-pressure chronic ulcer of other part of unspecified foot with fat layer exposed Problem Details: With necrosis and bilateral heels, right lateral malleolus Assessment and Plan: With patient's dementia and confusion will treat with conventional therapy vs wound vac. Hydrofera blue dressing q3days ordered. Wound care will place today and follow up Friday for dressing changes. Bone biopsy for cultures taken from right distal fibula yesterday- patient started on Vanco post-op. Will defer antibiotic management to hospitalist. Heel savers to prevent pressure on wounds. Hospital Course Summary Disclaimer: The visit summary below is not to be considered part of the above Progress Note. Hospital Course: 12/02/17 Inpatient admission to [facility] [place] secondary to concern for worsening encephalopathy and care failure in outpatient setting. Initiate IVF for NS for hydration, monitoring volume status. Wound consult for chronic leg wounds. Psych consult for devaluation of dementia with declining functional status and worsening behaviors. Continue with home medications. PT/OT eval and treat due to functional decline. Monitor sugars secondary to diabetes and Lantus use. Work on bowel motivation - prn MOM and Dulcolax in addition to starting routine Miralax. Haldol and lorazepam as needed for increased agitation and behaviors. Monitor lab. SCD for DVT prevention. Full code ordered. Care to return to Dr Salmeron at time of discharge from [facility] [place]. 12/03/17 Wound team to evaluate bilateral lower ext today. Psychiatric consultation. Overall blood counts and electrolytes are normal.
[2017-12-05] MEDS: HYDROCODONE/APAP 5mg/325mg TABLET PO PRN (18:11)
[2017-12-06] MEDS: AMPICILLIN/SULBACTAM 3 G in NS 100 ML IV SCH ×4 (00:10→22:35)
[2017-12-06] MEDS: NS 1,000 ML IV SCH ×2 (02:00→06:16)
[2017-12-06] MEDS: PANTOPRAZOLE 20 MG TABLET PO SCH ×2 (06:15→18:22)
[2017-12-06] MEDS: LEVOTHYROXINE 100 MCG TABLET PO SCH (06:15)
[2017-12-06] MEDS: HALOPERIDOL 5 MG/ML INJECTION IVP SCH ×3 (08:38→22:34)
--- NOTE | 2017-12-06 09:08 | Pharmacy Consult-Antibiotics ---
Pharmacy Consult-Vancomycin - Laboratory Information WBC 9.0 T/MM3 (4.5-11.0) 12/06/17 07:49 BUN 5.0 MG/DL (9-20) L 12/06/17 07:49 Creatinine 0.7 mg/dL (0.8-1.5) L 12/06/17 07:49 Vancomycin Trough 18.88 ug/mL (15-20) 12/06/17 07:49 - Consult Information VANCOMYCIN CONSULT: Vancomycin Trough = 18.88 mcg/ml. Today's SCr = 0.7 mg/dl. Will continue Vancomycin 1500 mg IV q12hrs. Will continue to monitor and make adjustments accordingly. Thank you.
[2017-12-06] MEDS: ENOXAPARIN 40 MG/0.4 ML INJECTION SQ SCH (10:14)
[2017-12-06] MEDS: POLYETHYL GLYCOL 3350 17gm PACKET PO SCH (10:15)
--- NOTE | 2017-12-06 12:42 | Progress Note ---
- Date 12/06/17 Subjective: Chacho is seen today in follow up. He is resting with eyes closed. Opens eyes, and asks me "what are you doing?" I asked to examine him and he said "No! Go away and leave me alone." I did not attempt further exam of patient. He returned back to resting with eyes closed. Chart is reviewed. Patient has continued to refuse cares and meds. Has refused to have wet brief changed. Does not want to be turned. Remains confused, uncooperative. Objective Vital signs: Temperature 98.4 F 12/06/17 07:12 Pulse Rate 82 12/06/17 07:12 Respiratory Rate 16 12/06/17 07:12 Blood Pressure 139/68 12/06/17 07:12 Pulse Oximetry 97 12/06/17 07:12 Height/Weight/BMI: Height 1.83 m Weight 96 kg Body Mass Index 22.2 Comments: Gen.: Patient is resting quietly, arouses easily. Irritable, uncooperative. Pulmonary: Patient is breathing easily, unlabored. Abdomen: Nondistended Skin: Warm and pink - Routine Psychiatric Exam Absent: normal affect, normal thought process, cooperative, good insight, good judgment Results - Labs CBC & Chem 7: 12/06/17 07:49 12/06/17 07:49 Microbiology Results: Microbiology 12/04/17 17:05 Ankle, Right, Bone Surgical Culture - Preliminary Early growth Assessment and Plan (1) Dementia Problem details: With delirium/encephalopathy Current visit: Yes Status: Acute (2) Chronic foot ulcer Problem details: With necrosis and bilateral heels, right lateral malleolus Current visit: Yes Status: Acute (3) Osteomyelitis of ankle Current visit: Yes Status: Acute Assessment and Plan: Impression Encephalopathy vs Dementia with behavioral dyscontrol Electrolytes and blood counts (other than chronic anemia) normal. Not seeing obvious source of systemic infection/inflammation. Chronic wounds to Left heal and Right lateral malleolus Constipation Dehydration Type II DM Hypothyroidism Anemia - suspect chronic disease Gen debility Functional decline at home Plan 12/06/2016 Diabetic foot ulcers, osteomyelitis identified at fibular head by MRI. Surgical debridement and cultures obtained- early growth identified, the cultures remain pending Continue broad spectrum coverage for diabetic foot ulcers with osteo-with vancomycin and Unasyn pending culture results. Arterial Dopplers will be needed at some point to evaluate for PVD- extremities are warm currently. Monitor carefully. Exam c/w chronic vascular disease. Leukocytosis is improved today. pt. remains afebrile. Monitor sugars secondary to diabetes; Lantus on hold. BG remains fairly well controlled on current. Haldol and lorazepam as needed for increased agitation and behaviors. Psych following. Patient continues to refuse care to his detriment. Difficult situation. Has been recommended to be placed several times. No family present today. Potassium is trending down. Will add KCL to his IVF. Continue gentle IVF as he is not eating consistently. DVT Prophylaxis: Lovenox GI Prophylaxis: Protonix Resuscitation Status: Full Code - Physician Narrative Physician: Kelly Lopez MD Narrative: Date: 12/06/17 Time: 1550 I have independently evaluated and examined this patient. I reviewed the chart, the patient's history, and the EXECUTIVE OFFICER/PA's documented findings as above. We discussed and formulated the assessment and plan as above with additions as below: Mr. Mayorga was resting comfortably when seen. He denied concerns and then asked politely that I leave. Nursing reports urinary incontinence and that he often bargains with them to allow them to permit care to be provided i.e. patient didn't permit phlebotomy until after having a cup of coffee. Wounds on his heels and right ankle are dressed, right foot is elevated, left foot is on the bed. No pretibial edema, dorsalis pedis pulses are +2 bilaterally Early growth of surgical bone culture noted-no further information at this time. Continue broad-spectrum antibiotics. ID consult planned for Friday. Hospital Course Summary Disclaimer: The visit summary below is not to be considered part of the above Progress Note. Hospital Course: 12/02/17 [place] [facility] [place] concern for worsening encephalopathy and care failure in outpatient setting. Initiate IVF for NS for hydration, monitoring volume status. Wound consult for chronic leg wounds. Psych consult for devaluation of dementia with declining functional status and worsening behaviors. Continue with home medications. PT/OT eval and treat due to functional decline. Monitor sugars secondary to diabetes and Lantus use. Work on bowel motivation - prn MOM and Dulcolax in addition to starting routine Miralax. Haldol and lorazepam as needed for increased agitation and behaviors. Monitor lab. SCD for DVT prevention. Full code ordered. Care to return to Dr Salmeron [place] [facility] [place]/03/17 Wound team to evaluate bilateral lower ext today. Psychiatric consultation. Overall blood counts and electrolytes are normal. 12/04/17 Diabetic foot ulcers, osteomyelitis identified at fibular head by MRI. Surgical debridement this afternoon and cultures obtained. Will initiate therapy empirically for diabetic foot ulcers with osteo-with vancomycin and Unasyn pending culture results. Arterial Dopplers will be needed at some point to evaluate for PVD. Monitor sugars secondary to diabetes; Lantus on hold. Plan 12/05/2016 Diabetic foot ulcers, osteomyelitis identified at fibular head by MRI. Surgical debridement and cultures obtained- still pending. Continue broad spectrum coverage for diabetic foot ulcers with osteo-with vancomycin and Unasyn pending culture results. Arterial Dopplers will be needed at some point to evaluate for PVD- extremities are warm currently. Monitor carefully. Exam c/w chronic vascular disease. Mild increase in leukocytosis- suspect due to debridement yesterday. Afebrile. Monitor sugars secondary to diabetes; Lantus on hold. BG remains fairly well controlled on current. Haldol and lorazepam as needed for increased agitation and behaviors. Psych following. 12/06/2016 Diabetic foot ulcers, osteomyelitis identified at fibular head by MRI. Surgical debridement and cultures obtained- early growth identified, the cultures remain pending Continue broad spectrum coverage for diabetic foot ulcers with osteo-with vancomycin and Unasyn pending culture results. Arterial Dopplers will be needed at some point to evaluate for PVD- extremities are warm currently. Monitor carefully. Exam c/w chronic vascular disease. Leukocytosis is improved today. pt. remains afebrile. Monitor sugars secondary to diabetes; Lantus on hold. BG remains fairly well controlled on current. Haldol and lorazepam as needed for increased agitation and behaviors. Psych following. Patient continues to refuse care to his detriment. Difficult situation. Has been recommended to be placed several times. No family present today. Potassium is trending down. Will add KCL to his IVF. Continue gentle IVF as he is not eating consistently.
[2017-12-06] MEDS ORDERED: POTASSIUM CHLORIDE INJ 20 MEQ in NS 1,000 ML IV SCH (12:50)
[2017-12-06] MEDS: NS with KCL 20mEq 1,000ml IV SCH (13:12)
[2017-12-06] MEDS: SALINE FLUSH 10ml SYRINGE IVF PRN (15:24)
--- NOTE | 2017-12-06 18:23 | Orthopedic Progress Note ---
Date: Date: 12/06/17 Time: 1818 Subjective/Severity of Illness: Pt was seen early this AM on rounds. He is not cooperative with nursing staff and refuses to do anything for them. Pt is not using the pillows or pads to keep pressure off his heels. Bandages in place. Pt not answering questions this AM. Orthopedic Exam Vital signs: Temperature 97.7 F 12/06/17 17:00 Pulse Rate 79 12/06/17 17:00 Respiratory Rate 18 12/06/17 17:00 Blood Pressure 159/83 H 12/06/17 17:00 Pulse Oximetry 99 12/06/17 17:00 - Constitutional General Appearance: Present: alert, no acute distress. Absent: cooperative - Respiratory Exam Present: non-labored - Extremities Exam Present: pulses intact - Dressing Dressing: dry, intact, no drainage - Psychiatric Exam Present: alert - Labs Result Diagrams: 12/06/17 07:49 12/06/17 07:49 Abnormal lab results 12/06/17 12/06/17 Range/Units 07:49 07:49 RBC 3.95 L (4.50-5.90) M/MM3 Hgb 10.6 L (13.5-17.5) GM/DL Hct 32.3 L (41-53) % MPV 8.0 L (9.4-12.4) UM3 Neut % (Auto) 77.6 H (33-66) % Lymph % (Auto) 13.2 L (23-45) % Eos % (Auto) 4.6 H (0-4) % Potassium 3.5 L (3.6-5) MEQ/L BUN 5.0 L (9-20) MG/DL Creatinine 0.7 L (0.8-1.5) mg/dL H & H 12/03/17 12/04/17 12/05/17 Range/Units 04:19 04:20 04:37 Hgb 9.4 L D 9.4 L 10.8 L D (13.5-17.5) GM/DL Hct 29.5 L 29.4 L 32.9 L D (41-53) % 12/06/17 Range/Units 07:49 Hgb 10.6 L (13.5-17.5) GM/DL Hct 32.3 L (41-53) % Orthopedic Assessment and Plan (1) Chronic foot ulcer Status: Acute Qualifiers: Laterality: unspecified laterality Non-pressure ulcer stage: with fat layer exposed Qualified Code(s): L97.502 - Non-pressure chronic ulcer of other part of unspecified foot with fat layer exposed Problem Details: With necrosis and bilateral heels, right lateral malleolus Assessment and Plan: Dressings intact. Pt encouraged to use the pillows and foam to keep pressure off the sores. I positioned everything to unload the areas. Pt scheduled to have the dressings changed Friday. Hospital Course Summary Disclaimer: The visit summary below is not to be considered part of the above Progress Note. Hospital Course: 12/02/17 Inpatient admission to [facility] [place] secondary to concern for worsening encephalopathy and care failure in outpatient setting. Initiate IVF for NS for hydration, monitoring volume status. Wound consult for chronic leg wounds. Psych consult for devaluation of dementia with declining functional status and worsening behaviors. Continue with home medications. PT/OT eval and treat due to functional decline. Monitor sugars secondary to diabetes and Lantus use. Work on bowel motivation - prn MOM and Dulcolax in addition to starting routine Miralax. Haldol and lorazepam as needed for increased agitation and behaviors. Monitor lab. SCD for DVT prevention. Full code ordered. Care to return to Dr Salmeron at time of discharge from [facility] [place]. 12/03/17 Wound team to evaluate bilateral lower ext today. Psychiatric consultation. Overall blood counts and electrolytes are normal. 12/04/17 Diabetic foot ulcers, osteomyelitis identified at fibular head by MRI. Surgical debridement this afternoon and cultures obtained. Will initiate therapy empirically for diabetic foot ulcers with osteo-with vancomycin and Unasyn pending culture results. Arterial Dopplers will be needed at some point to evaluate for PVD. Monitor sugars secondary to diabetes; Lantus on hold. Plan 12/05/2016 Diabetic foot ulcers, osteomyelitis identified at fibular head by MRI. Surgical debridement and cultures obtained- still pending. Continue broad spectrum coverage for diabetic foot ulcers with osteo-with vancomycin and Unasyn pending culture results. Arterial Dopplers will be needed at some point to evaluate for PVD- extremities are warm currently. Monitor carefully. Exam c/w chronic vascular disease. Mild increase in leukocytosis- suspect due to debridement yesterday. Afebrile. Monitor sugars secondary to diabetes; Lantus on hold. BG remains fairly well controlled on current. Haldol and lorazepam as needed for increased agitation and behaviors. Psych following. 12/06/2016 Diabetic foot ulcers, osteomyelitis identified at fibular head by MRI. Surgical debridement 12/04.18 and cultures obtained- early growth identified, the cultures remain pending Continue broad spectrum coverage for diabetic foot ulcers with osteo-with vancomycin and Unasyn pending culture results. Arterial Dopplers will be needed at some point to evaluate for PVD- extremities are warm currently. Monitor carefully. Exam c/w chronic vascular disease. Leukocytosis is improved today. pt. remains afebrile. Monitor sugars secondary to diabetes; Lantus on hold. BG remains fairly well controlled on current. Haldol and lorazepam as needed for increased agitation and behaviors. Psych following. Patient continues to refuse care to his detriment. Difficult situation. Has been recommended to be placed several times. No family present today. Potassium is trending down. Will add KCL to his IVF. Continue gentle IVF as he is not eating consistently.
[2017-12-06] MEDS ORDERED: HALOPERIDOL 5 MG/ML INJECTION IM PRN (18:41)
[2017-12-07] MEDS: HYDROCODONE/APAP 5mg/325mg TABLET PO PRN ×2 (04:08→15:24)
[2017-12-07] MEDS: SALINE FLUSH 10ml SYRINGE IVF PRN ×3 (04:52→12:03)
[2017-12-07] MEDS: PANTOPRAZOLE 20 MG TABLET PO SCH ×2 (05:55→17:43)
[2017-12-07] MEDS: LEVOTHYROXINE 100 MCG TABLET PO SCH (05:55)
--- NOTE | 2017-12-07 08:06 | Neuropsych Progress Note ---
Luana Subjective Date: 12/07/17 - Sujective/Severity of Illness Medications: Acetaminophen (Tylenol) 500 mg PO Q5H PRN PRN Reason: Discomfort Hydrocodone Bitart/Acetaminophen ([place] 5/325) 1 tab PO Q6H PRN PRN Reason: Pain Last Admin: 12/07/17 04:08 Dose: 1 tab Bisacodyl (Dulcolax) 10 mg RECTALLY DAILY PRN PRN Reason: Constipation Enoxaparin Sodium (Lovenox) 40 mg SQ DAILY [facility] Last Admin: 12/06/17 10:14 Dose: Not Given Haloperidol Lactate (Haldol) 2 mg IVP Q2H PRN Ampicillin Sodium/Sulbactam (Sodium 3 g/ Sodium Chloride) 100 mls @ 200 mls/hr IV Q6H [facility] Last Infusion: 12/06/17 23:05 Dose: Infused Vancomycin HCl 1,500 mg/ (Sodium Chloride) 500 mls @ 250 mls/hr IV Q12H [facility] Last Admin: 12/07/17 00:44 Dose: 250 mls/hr Potassium Chloride/Sodium Chloride (Ns With Kcl 20 Meq Premix) 1,000 mls @ 75 mls/hr IV .[id number] [facility] Last Infusion: 12/07/17 00:44 Dose: 0 mls/hr Levothyroxine Sodium (Synthroid) 100 mcg PO ACB [facility] Last Admin: 12/07/17 05:55 Dose: 100 mcg Lorazepam (Ativan Inj) 0.5 mg IVP Q6H PRN Last Admin: 12/04/17 07:49 Dose: 0.5 mg Lorazepam (Ativan Inj) 1 mg IVP O PRN PRN Reason: Agitation/Restlessness Last Admin: 12/04/17 06:44 Dose: 1 mg Magnesium Hydroxide (Mom) 30 ml PO DAILY PRN PRN Reason: Constipation Morphine Sulfate (Morphine Sulfate Inj) 2 mg IVP Q3H PRN PRN Reason: Pain Pantoprazole Sodium (Protonix) 20 mg PO ACBID [facility] Last Admin: 12/07/17 05:55 Dose: 20 mg Polyethylene Glycol (Miralax) 17 gm PO DAILY [facility] Last Admin: 12/06/17 10:15 Dose: Not Given Quetiapine Fumarate (Seroquel) 100 mg PO BID [facility] Last Admin: 12/03/17 09:04 Dose: 100 mg Sodium Chloride (Iv Flush) 10 - 80 ml IVF PRN PRN PRN Reason: Flushing Last Admin: 12/07/17 04:52 Dose: 40 ml Subjective: Patient seen and chart reviewed. Nursing staff report patient has been irritable, agitated and combative at times , and refusing cares frequently. On interview today, patient is pleasant and willing to engage with me. He doesn' t know why he is here ("I think some kind of hip surgery") but reports that his mood is good and his pain is well-controlled. He denies any other complaints. Start Time: :40 Stop Time: 10:00 Mental Status Exam Vitals: Last Vital Signs Temp 97.5 F 12/07/17 01:00 Pulse 85 12/07/17 01:00 Resp 20 12/07/17 01:00 BP 131/61 12/07/17 01:00 Pulse Ox 95 12/07/17 01:00 Height: 1.83 m Weight: 76 kg - Mental Status Exam Muscle Strength/Tone: Weak Dressing: Other (Hospital gown) Grooming: Fair Attitude: Uncooperative (frequently) Motor Activity: Retardation Eye Contact: Good Speech: Slowed Volume: Soft Rhythm: Other (Short responses) Orientation: Disoriented to place, Disoriented to situation, Oriented to person , Oriented to time Mood: Neutral (affect labile with staff) Rate of Thoughts: Delayed Thought Organization: [place], Confused Associations: Illogical (at times) Abstract Reasoning: Impaired, concrete Thought Content: Other (Confusion only) Perception/Psychotic: Perception Normal Fund of Knowledge: Poor fund of knowledge, Other (Hx of dementia) Memory: Poor-immediate, Poor-recent Suicidal Ideation: None (No concern for SI reported by family/staff) Homicidal Ideation: None Insight: Impaired Judgement: Impaired Impulse Control: Poor - Laboratory Result Diagrams: 12/07/17 04:48 12/07/17 04:48 Laboratory Results - last 24 hr 12/06/17 12/06/17 12/06/17 07:02 07:49 07:49 WBC RBC Hgb Hct MCV MCH MCHC RDW Std Deviation Plt Count MPV Immature Gran % (Auto) Neut % (Auto) Lymph % (Auto) [place] % (Auto) Eos % (Auto) Baso % (Auto) Neut # (Auto) Lymph # (Auto) [place] # (Auto) Eos # (Auto) Baso # (Auto) Abs Immat Gran (auto) Turbidity < 20 Sodium 141 Potassium 3.5 L Chloride 105 Carbon Dioxide 24 Anion Gap 12 BUN 5.0 L Creatinine 0.7 L GFR Calculation 111 BUN/Creatinine Ratio 7 Glucose 109 Glucometer 96 Calculated Osmolality 269 Calcium 8.7 Phosphorus Magnesium 1.9 Icterus Index < 2 Albumin Specimen Hemolysis < 15 Vancomycin Trough 18.88 12/06/17 12/06/17 12/07/17 10:11 14:25 02:47 WBC RBC Hgb Hct MCV MCH MCHC RDW Std Deviation Plt Count MPV Immature Gran % (Auto) Neut % (Auto) Lymph % (Auto) [place] % (Auto) Eos % (Auto) Baso % (Auto) Neut # (Auto) Lymph # (Auto) [place] # (Auto) Eos # (Auto) Baso # (Auto) Abs Immat Gran (auto) Turbidity Sodium Potassium Chloride Carbon Dioxide Anion Gap BUN Creatinine GFR Calculation BUN/Creatinine Ratio Glucose Glucometer 231 151 120 Calculated Osmolality Calcium Phosphorus Magnesium Icterus Index Albumin Specimen Hemolysis Vancomycin Trough 12/07/17 12/07/17 12/07/17 04:48 04:48 04:48 WBC 8.7 RBC 3.51 L Hgb 9.3 L D Hct 28.8 L MCV 82.1 MCH 26.5 MCHC 32.3 RDW Std Deviation 40.5 Plt Count 330 MPV 8.4 L Immature Gran % (Auto) 0.2 Neut % (Auto) 75.9 H Lymph % (Auto) 14.5 L [place] % (Auto) 5.5 Eos % (Auto) 3.6 Baso % (Auto) 0.3 Neut # (Auto) 6.6 Lymph # (Auto) 1.3 [place] # (Auto) 0.5 Eos # (Auto) 0.3 Baso # (Auto) 0.0 Abs Immat Gran (auto) 0.02 Turbidity < 20 Sodium 141 Potassium 3.3 L Chloride 105 Carbon Dioxide 24 Anion Gap 12 BUN 4.0 L Creatinine 0.6 L GFR Calculation 133 BUN/Creatinine Ratio 7 Glucose 120 H Glucometer Calculated Osmolality 269 Calcium 8.0 L D Phosphorus 2.3 L Magnesium Icterus Index < 2 Albumin 3.3 L Specimen Hemolysis < 15 Vancomycin Trough 30.22 H* Assessment and Plan (1) Major neurocognitive disorder Problem details: with behavioral disturbance Other medical conditions: r/o Delirium Electrolytes and blood counts (other than chronic anemia) normal. Not seeing obvious source of systemic infection/inflammation. Chronic wounds to Left heal and Right lateral malleolus Constipation Dehydration Type II DM Hypothyroidism Anemia - suspect chronic disease Current visit: Yes Status: Acute Primary team has discontinued scheduled Haldol and ordered 2mg IV TID PRN agitation; agree with this and can scheduled if needed. Can also utilize PRN lorazepam available. Consider pre-medicatinng with low dose lorazepam (0.25mg IV ) 20-30 minutes prior to significant cares. Will continue to follow. Hospital Course Summary Disclaimer: The visit summary below is not to be considered part of the above Progress Note. Hospital Course: 12/02/17 [place] [facility] [place] concern for worsening encephalopathy and care failure in outpatient setting. Initiate IVF for NS for hydration, monitoring volume status. Wound consult for chronic leg wounds. Psych consult for devaluation of dementia with declining functional status and worsening behaviors. Continue with home medications. PT/OT eval and treat due to functional decline. Monitor sugars secondary to diabetes and Lantus use. Work on bowel motivation - prn MOM and Dulcolax in addition to starting routine Miralax. Haldol and lorazepam as needed for increased agitation and behaviors. Monitor lab. SCD for DVT prevention. Full code ordered. Care to return to Dr Salmeron at time of [place] [facility] 12/03/17 Wound team to evaluate bilateral lower ext today. Psychiatric consultation. Overall blood counts and electrolytes are normal. 12/04/17 Diabetic foot ulcers, osteomyelitis identified at fibular head by MRI. Surgical debridement this afternoon and cultures obtained. Will initiate therapy empirically for diabetic foot ulcers with osteo-with vancomycin and Unasyn pending culture results. Arterial Dopplers will be needed at some point to evaluate for PVD. Monitor sugars secondary to diabetes; Lantus on hold. Plan 12/05/2016 Diabetic foot ulcers, osteomyelitis identified at fibular head by MRI. Surgical debridement and cultures obtained- still pending. Continue broad spectrum coverage for diabetic foot ulcers with osteo-with vancomycin and Unasyn pending culture results. Arterial Dopplers will be needed at some point to evaluate for PVD- extremities are warm currently. Monitor carefully. Exam c/w chronic vascular disease. Mild increase in leukocytosis- suspect due to debridement yesterday. Afebrile. Monitor sugars secondary to diabetes; Lantus on hold. BG remains fairly well controlled on current. Haldol and lorazepam as needed for increased agitation and behaviors. Psych following. 12/06/2016 Diabetic foot ulcers, osteomyelitis identified at fibular head by MRI. Surgical debridement and cultures obtained- early growth identified, the cultures remain pending Continue broad spectrum coverage for diabetic foot ulcers with osteo-with vancomycin and Unasyn pending culture results. Arterial Dopplers will be needed at some point to evaluate for PVD- extremities are warm currently. Monitor carefully. Exam c/w chronic vascular disease. Leukocytosis is improved today. pt. remains afebrile. Monitor sugars secondary to diabetes; Lantus on hold. BG remains fairly well controlled on current. Haldol and lorazepam as needed for increased agitation and behaviors. Psych following. Patient continues to refuse care to his detriment. Difficult situation. Has been recommended to be placed several times. No family present today. Potassium is trending down. Will add KCL to his IVF. Continue gentle IVF as he is not eating consistently. 12/07/17 Psych: Primary team has discontinued scheduled Haldol and ordered 2mg IV TID PRN agitation; agree with this and can scheduled if needed. Can also utilize PRN lorazepam available. Consider pre-medicatinng with low dose lorazepam (0.25mg IV) 20-30 minutes prior to significant cares. Will continue to follow.
--- NOTE | 2017-12-07 08:56 | Pharmacy Consult-Antibiotics ---
Pharmacy Consult-Vancomycin - Laboratory Information WBC 8.7 T/MM3 (4.5-11.0) 12/07/17 04:48 BUN 4.0 MG/DL (9-20) L 12/07/17 04:48 Creatinine 0.6 mg/dL (0.8-1.5) L 12/07/17 04:48 Vancomycin Trough 30.22 ug/mL (15-20) H* 12/07/17 04:48 - Consult Information Vancomycin Consult: Day 4 Vancomycin Trough = 30 mcg/ml. (Drawen four hours after dose given.) Today's S Cr = 0.6 mg/dl. Estimated Cr Cl = 84 mL/hr. The Vancomycin dose was given 4 hours late and the trough was drawn 4 hours after dose was given, hence the apparently elevated trough. I will continue the Vancomycin 1,500 mg IV q12hrs with new dosing times, 0001, 1200. The pharmacy will continue to monitor and make adjustments accordingly. Thank you for the Pharmacy Vancomycin dosing protocol, Yolanda Funes, Pharmacist.
[2017-12-07] MEDS: AMPICILLIN/SULBACTAM 3 G in NS 100 ML IV SCH ×3 (09:29→20:00)
[2017-12-07] MEDS: NS FLUSH BAG 500ml IV PRN (09:29)
[2017-12-07] MEDS: POLYETHYL GLYCOL 3350 17gm PACKET PO SCH (09:52)
[2017-12-07] MEDS: ENOXAPARIN 40 MG/0.4 ML INJECTION SQ SCH (09:52)
[2017-12-07] MEDS: NS with KCL 20mEq 1,000ml IV SCH (09:53)
--- NOTE | 2017-12-07 10:14 | Progress Note ---
- Date 12/07/17 Subjective: Patient is seen today in follow up. He arouses easily during my exam. Does not refuse exam. Answers my questions without arguing today. He denies any pain or other concerns. Feeling "ok". Objective Vital signs: Temperature 98.2 F 12/07/17 09:32 Pulse Rate 83 12/07/17 09:32 Respiratory Rate 18 12/07/17 09:32 Blood Pressure 155/82 H 12/07/17 09:32 Pulse Oximetry 94 12/07/17 09:32 Height/Weight/BMI: Height 1.83 m Weight 76 kg Body Mass Index 22.2 - Constitutional Present: no acute distress, average body habitus, cooperative - Routine HEENT Exam Head: Present: normocephalic, atraumatic Eye: Present: EOMI, PERRL - Routine Respiratory Exam Present: CTA bilaterally. Absent: dyspnea, rales, rhonchi, crackles - Routine Cardiovascular Exam Present: RRR, S1, S2 - Routine Abdominal Exam Present: soft, normoactive bowel sounds, non distended, non tender - Routine Extremities Exam Present: no edema, pulses intact - Routine Musculoskeletal Exam Musculoskeletal: Present: moving extremities well - Routine Skin Exam Present: dry, warm, wounds (Bilateral heel wounds with dressing in place. ) - Routine Neurological Exam Present: alert. Absent: oriented X3 - Routine Psychiatric Exam Present: cooperative. Absent: good insight, good judgment Results - Labs CBC & Chem 7: 12/07/17 04:48 12/07/17 04:48 Microbiology Results: Microbiology 12/04/17 17:05 Ankle, Right, Bone Surgical Culture - Preliminary Early growth Assessment and Plan (1) Dementia Problem details: With delirium/encephalopathy Current visit: Yes Status: Acute (2) Chronic foot ulcer Problem details: With necrosis and bilateral heels, right lateral malleolus Current visit: Yes Status: Acute (3) Osteomyelitis of ankle Current visit: Yes Status: Acute Assessment and Plan: Impression Encephalopathy vs Dementia with behavioral dyscontrol Electrolytes and blood counts (other than chronic anemia) normal. Not seeing obvious source of systemic infection/inflammation. Chronic wounds to Left heal and Right lateral malleolus Constipation Dehydration Type II DM Hypothyroidism Anemia - suspect chronic disease Gen debility Functional decline at home Plan 12/07/2016 Diabetic foot ulcers, osteomyelitis identified at fibular head by MRI. Surgical debridement 12/04/17 and cultures obtained- early growth identified, the cultures remain pending 12/07 Continue broad spectrum coverage for diabetic foot ulcers with osteo-with vancomycin and Unasyn pending culture results. Arterial Dopplers will be needed at some point to evaluate for PVD- extremities are warm currently. Monitor carefully. Exam c/w chronic vascular disease. Leukocytosis is improved today. pt. remains afebrile. Monitor sugars secondary to diabetes; Lantus on hold. BG remains fairly well controlled on current. Haldol and lorazepam as needed for increased agitation and behaviors. Psych following. Patient continues to refuse care to his detriment. Difficult situation. Has been recommended to be placed several times. No family available during my visit. He is more cooperative at this time. Potassium and phosphorus low, to be replaced today. DVT Prophylaxis: Lovenox Resuscitation Status: Full Code - Physician Narrative Physician: Kelly Lopez MD Narrative: Date: 12/07/17 Time: 1600 I have independently evaluated and examined this patient. I reviewed the chart, the patient's history, and the [employer]/PA's documented findings as above. We discussed and formulated the assessment and plan as above with additions as below: Mr. Mayorga was resting comfortably when seen and reported that he is having no dyspnea or pain. He's not had a bowel movement in 4-5 days per nursing. It took several hours to place PICC line last night and subsequently vancomycin dose was administered for 5 hours late and reported vancomycin trough today was obtained 4 hours after the dose and hence is not a trough at all. Level to be rechecked. Respirations are nonlabored with good airflow, breath sounds are clear anteriorly Regular rhythm, S1-S2 Both feet are elevated at time of my exam Coag-negative staph reported in bone culture. Repeat CRP in a.m. It appears scheduled Haldol was discontinued overnight when when prn was increased to 2 mg; monitor behaviors without scheduled medication and will discuss further with Dr. Ortiz if behavioral status worsens. Senokot added for bowels. Hospital Course Summary Disclaimer: The visit summary below is not to be considered part of the above Progress Note. Hospital Course: 12/02/17 Inpatient admission to [facility] [place] secondary to concern for worsening encephalopathy and care failure in outpatient setting. Initiate IVF for NS for hydration, monitoring volume status. Wound consult for chronic leg wounds. Psych consult for devaluation of dementia with declining functional status and worsening behaviors. Continue with home medications. PT/OT eval and treat due to functional decline. Monitor sugars secondary to diabetes and Lantus use. Work on bowel motivation - prn MOM and Dulcolax in addition to starting routine Miralax. Haldol and lorazepam as needed for increased agitation and behaviors. Monitor lab. SCD for DVT prevention. Full code ordered. Care to return to Dr Salmeron at time of discharge from [facility]. 12/03/17 Wound team to evaluate bilateral lower ext today. Psychiatric consultation. Overall blood counts and electrolytes are normal. 12/04/17 Diabetic foot ulcers, osteomyelitis identified at fibular head by MRI. Surgical debridement this afternoon and cultures obtained. Will initiate therapy empirically for diabetic foot ulcers with osteo-with vancomycin and Unasyn pending culture results. Arterial Dopplers will be needed at some point to evaluate for PVD. Monitor sugars secondary to diabetes; Lantus on hold. 12/05/2017 Diabetic foot ulcers, osteomyelitis identified at fibular head by MRI. Surgical debridement and cultures obtained- still pending. Continue broad spectrum coverage for diabetic foot ulcers with osteo-with vancomycin and Unasyn pending culture results. Arterial Dopplers will be needed at some point to evaluate for PVD- extremities are warm currently. Monitor carefully. Exam c/w chronic vascular disease. Mild increase in leukocytosis- suspect due to debridement yesterday. Afebrile. Monitor sugars secondary to diabetes; Lantus on hold. BG remains fairly well controlled on current. Haldol and lorazepam as needed for increased agitation and behaviors. Psych following. 12/06/2017 Diabetic foot ulcers, osteomyelitis identified at fibular head by MRI. Surgical debridement and cultures obtained- early growth identified, the cultures remain pending Continue broad spectrum coverage for diabetic foot ulcers with osteo-with vancomycin and Unasyn pending culture results. Arterial Dopplers will be needed at some point to evaluate for PVD- extremities are warm currently. Monitor carefully. Exam c/w chronic vascular disease. Leukocytosis is improved today. pt. remains afebrile. Monitor sugars secondary to diabetes; Lantus on hold. BG remains fairly well controlled on current. Haldol and lorazepam as needed for increased agitation and behaviors. Psych following. Patient continues to refuse care to his detriment. Difficult situation. Has been recommended to be placed several times. No family present today. Potassium is trending down. Will add KCL to his IVF. Continue gentle IVF as he is not eating consistently. 12/07/17 Continue current antibiotics, PICC line placed yesterday evening. Repeat CRP in a.m. ID consult in a.m. Ulcers developed after hospitalization, may be pressure ulcers rather than diabetic wounds. 12/07/17 Psych: Primary team has discontinued scheduled Haldol and ordered 2mg IV TID PRN agitation; agree with this and can scheduled if needed. Can also utilize PRN lorazepam available. Consider pre-medicatinng with low dose lorazepam (0.25mg IV) 20-30 minutes prior to significant cares. Will continue to follow.
[2017-12-07] MEDS ORDERED: 1/2 NS IV SCH (10:15)
[2017-12-07] MEDS ORDERED: POTASSIUM PHOSPHATE IV SCH (10:15)
[2017-12-07] MEDS: HALOPERIDOL 5 MG/ML INJECTION IVP PRN (12:03)
[2017-12-07] MEDS: SENNA + DOCUSATE TABLET PO SCH (20:00)
[2017-12-08] MEDS: AMPICILLIN/SULBACTAM 3 G in NS 100 ML IV SCH ×2 (02:43→08:40)
[2017-12-08] MEDS: LEVOTHYROXINE 100 MCG TABLET PO SCH (05:35)
[2017-12-08] MEDS: PANTOPRAZOLE 20 MG TABLET PO SCH ×2 (05:35→17:05)
--- NOTE | 2017-12-08 08:05 | Orthopedic Progress Note ---
Date: Date: 12/08/17 Time: 08 Subjective/Severity of Illness: Chacho is lying in bed this morning. He is alert and pleasant this morning. Answers questions appropriately. He denies any pain in his feet. Heel savers in place, however has rubbed right heel dressing off. Dressing changes scheduled today with wound clinic. Orthopedic Exam Vital signs: Temperature 97.7 F 12/06/17 17:00 Pulse Rate 79 12/06/17 17:00 Respiratory Rate 18 12/06/17 17:00 Blood Pressure 159/83 H 12/06/17 17:00 Pulse Oximetry 99 12/06/17 17:00 - Constitutional General Appearance: Present: alert, cooperative, no acute distress - Respiratory Exam Present: non-labored - Cardiovascular Exam Present: pedal pulses intact - Extremities Exam Present: no edema, pulses intact - Dressing Dressing: dry, intact, no drainage - Lymphatic Lymphatic: Absent: adenopathy - Psychiatric Exam Present: alert - Labs Result Diagrams: 12/08/17 06:00 12/08/17 06:00 Abnormal lab results 12/08/17 12/08/17 Range/Units 06:00 06:00 RBC 3.93 L (4.50-5.90) M/MM3 Hgb 10.6 L D (13.5-17.5) GM/DL Hct 32.0 L D (41-53) % MPV 8.0 L (9.4-12.4) UM3 Neut % (Auto) 68.3 H (33-66) % Lymph % (Auto) 20.2 L (23-45) % Eos % (Auto) 5.0 H (0-4) % BUN 4.0 L (9-20) MG/DL Creatinine 0.7 L (0.8-1.5) mg/dL C-Reactive Protein 50.8 H (0-9) mg/L H & H 12/03/17 12/04/17 12/05/17 Range/Units 04:19 04:20 04:37 Hgb 9.4 L D 9.4 L 10.8 L D (13.5-17.5) GM/DL Hct 29.5 L 29.4 L 32.9 L D (41-53) % 12/06/17 12/07/17 12/08/17 Range/Units 07:49 04:48 03:45 Hgb 10.6 L 9.3 L D Cancelled (13.5-17.5) GM/DL Hct 32.3 L 28.8 L Cancelled (41-53) % 12/08/17 Range/Units 06:00 Hgb 10.6 L D (13.5-17.5) GM/DL Hct 32.0 L D (41-53) % Orthopedic Assessment and Plan (1) Chronic foot ulcer Status: Acute Qualifiers: Laterality: unspecified laterality Non-pressure ulcer stage: with fat layer exposed Qualified Code(s): L97.502 - Non-pressure chronic ulcer of other part of unspecified foot with fat layer exposed Problem Details: With necrosis and bilateral heels, right lateral malleolus Assessment and Plan: Wound debridement by Dr. No on 12/04/17 Wound clinic consulted, changed dressings today, continued Hydrofera blue. Will change q3days. Path report negative for osteomyelitis. Culture coag neg staph. Dr. Guzman managing antibiotics. Pt encouraged to use the pillows and foam to keep pressure off the sores. Hospitalist managing medically. Thank you for consultation. Hospital Course Summary Disclaimer: The visit summary below is not to be considered part of the above Progress Note. Hospital Course: 12/02/17 [place] [facility] [place] concern for worsening encephalopathy and care failure in outpatient setting. Initiate IVF for NS for hydration, monitoring volume status. Wound consult for chronic leg wounds. Psych consult for devaluation of dementia with declining functional status and worsening behaviors. Continue with home medications. PT/OT eval and treat due to functional decline. Monitor sugars secondary to diabetes and Lantus use. Work on bowel motivation - prn MOM and Dulcolax in addition to starting routine Miralax. Haldol and lorazepam as needed for increased agitation and behaviors. Monitor lab. SCD for DVT prevention. Full code ordered. Care to return to Dr Salmeron at time of [place] [facility] [place] 12/03/17 Wound team to evaluate bilateral lower ext today. Psychiatric consultation. Overall blood counts and electrolytes are normal. 12/04/17 Diabetic foot ulcers, osteomyelitis identified at fibular head by MRI. Surgical debridement this afternoon and cultures obtained. Will initiate therapy empirically for diabetic foot ulcers with osteo-with vancomycin and Unasyn pending culture results. Arterial Dopplers will be needed at some point to evaluate for PVD. Monitor sugars secondary to diabetes; Lantus on hold. 12/05/2017 Diabetic foot ulcers, osteomyelitis identified at fibular head by MRI. Surgical debridement and cultures obtained- still pending. Continue broad spectrum coverage for diabetic foot ulcers with osteo-with vancomycin and Unasyn pending culture results. Arterial Dopplers will be needed at some point to evaluate for PVD- extremities are warm currently. Monitor carefully. Exam c/w chronic vascular disease. Mild increase in leukocytosis- suspect due to debridement yesterday. Afebrile. Monitor sugars secondary to diabetes; Lantus on hold. BG remains fairly well controlled on current. Haldol and lorazepam as needed for increased agitation and behaviors. Psych following. 12/06/2017 Diabetic foot ulcers, osteomyelitis identified at fibular head by MRI. Surgical debridement and cultures obtained- early growth identified, the cultures remain pending Continue broad spectrum coverage for diabetic foot ulcers with osteo-with vancomycin and Unasyn pending culture results. Arterial Dopplers will be needed at some point to evaluate for PVD- extremities are warm currently. Monitor carefully. Exam c/w chronic vascular disease. Leukocytosis is improved today. pt. remains afebrile. Monitor sugars secondary to diabetes; Lantus on hold. BG remains fairly well controlled on current. Haldol and lorazepam as needed for increased agitation and behaviors. Psych following. Patient continues to refuse care to his detriment. Difficult situation. Has been recommended to be placed several times. No family present today. Potassium is trending down. Will add KCL to his IVF. Continue gentle IVF as he is not eating consistently. 12/07/17 Continue current antibiotics, PICC line placed yesterday evening. Repeat CRP in a.m. ID consult in a.m. Ulcers developed after hospitalization, may be pressure ulcers rather than diabetic wounds. 12/07/17 Psych: Primary team has discontinued scheduled Haldol and ordered 2mg IV TID PRN agitation; agree with this and can scheduled if needed. Can also utilize PRN lorazepam available. Consider pre-medicatinng with low dose lorazepam (0.25mg IV) 20-30 minutes prior to significant cares. Will continue to follow.
[2017-12-08] MEDS: POLYETHYL GLYCOL 3350 17gm PACKET PO SCH ×2 (09:38→17:06)
[2017-12-08] MEDS: SENNA + DOCUSATE TABLET PO SCH ×2 (09:38→22:00)
[2017-12-08] MEDS: SALINE FLUSH 10ml SYRINGE IVF PRN ×2 (09:42→14:03)
[2017-12-08] MEDS: HALOPERIDOL 5 MG/ML INJECTION IVP PRN (09:43)
[2017-12-08] MEDS: ENOXAPARIN 40 MG/0.4 ML INJECTION SQ SCH (09:43)
--- NOTE | 2017-12-08 09:57 | Infectious Disease Consult ---
Infectious Disease Consult Date of Consultation: 12/08/17 Requesting Physician: Kelly Lopez Reason for Consultation: antibiotic recs History of Present Illness: Mr. Mayorga is a 72 y/o man with a history of dementia and behavioral disturbances. Per records he has had difficulty with aggressiveness and irritability and so most of my history is obtained from the chart. Records indicate that he was hospitalized at [facility] [place] then discharged to some sort of a facility and then was admitted to [facility] geriatric psych facility following that. He was admitted here on December 02 because he was unable to live at home and his family apparently had removed him from the geriatric psych facility 2 weeks ago. At some point recently he was noted to have wounds on his heels that have been worsening. X ray of his right ankle was unremarkable. X-ray of his left foot showed changes consistent with gout. He had bilateral lower extremity MRIs done December 04. The left ankle MRI was a nondiagnostic exam due to severe motion artifact. There was no gross bone marrow abnormality. The right ankle MRI showed some edema in the distal fibula at the site of the wound which showed mild postcontrast enhancement. This was felt to represent a small region of osteomyelitis in the distal lateral fibula. On December 04 he underwent surgical debridement of bilateral foot and ankle pressure ulcers with a bone biopsy right lateral malleolus. The path report just returned this morning and it shows fragments of soft tissue and bone with no definite acute osteomyelitis. This bone biopsy was sent for culture as well and it grew light growth of coagulase-negative staphylococcus. This was sensitive to tetracycline. There is no Gram stain reported. During this hospitalization he has been evaluated by psychiatry but at times has been refusing medications. Per records he sometimes refuses to participate in interviews. I have been asked to help with his antibiotics. When I was trying to ask him questions, he kept asking me to remove his breakfast tray. Medications Home Medications Medication Instructions Recorded Confirmed Type Acetaminophen 650 mg PO TID PRN 14 Days #0 12/08/15 12/02/17 Rx Docusate Sodium [Colace] 1 cap PO DAILY 12/02/17 12/02/17 History Folic Acid [Folate] 1 tab PO DAILY 12/02/17 12/02/17 History Insulin Glargine,Hum.rec.anlog 17 unit SQ HS 12/02/17 12/02/17 History [Lantus] Levothyroxine Sodium [Synthroid] 100 mcg PO ACB 12/02/17 12/02/17 History Mirtazapine [Remeron] 15 mg PO HS 12/02/17 12/02/17 History Pantoprazole Tab [Protonix] 20 mg PO BID 12/02/17 12/02/17 History Quetiapine Fumarate [Seroquel] 100 mg PO BID 12/02/17 12/02/17 History Quetiapine Fumarate [Seroquel] 200 mg PO DAILY 12/02/17 12/02/17 History Allergies Allergy/AdvReac Type Severity Reaction Status Date / Time aspirin Allergy Severe Vomiting Verified 12/02/17 01:23 Pork/Porcine Containing Allergy Mild Verified 12/02/17 01:22 Products fentanyl Allergy Unknown Verified 12/02/17 01:23 risperidone [From Risperdal] Allergy Unknown Verified 12/02/17 01:23 COUNTS INCLUDE 234 BEDS AT THE [facility] Patient Stated Medical History Cerebrovascular Accident No Paralysis No Seizures No Syncope No Cataracts Yes Angina No Cardiac Arrhythmia No Congestive Heart Failure No Coronary Artery Disease No Heart Murmur No Hypertension No Hypotension Yes Myocardial Infarction No Rheumatic Fever No Valvular Heart Disease No Other Cardiology No Asthma No Bronchitis No Chronic Obstructive Pulmonary No Disease (COPD) Pneumonia No Pulmonary Edema No Pulmonary Embolism No Sleep Apnea No Tuberculosis No Other Respiratory No Diabetes Mellitus Type 1 No Diabetes Mellitus Type 2 Yes Cirrhosis No Gastroesophageal Reflux Yes Disease Gastrointestinal Bleeding No Hepatitis No Hiatal Hernia No Obstructive Bowel No Ulcer No Other GI Yes: GI BLEED HX Hx Incontinence Yes Hx Renal Disease No Hx Urinary Tract Infection Yes: FREQUENT Other Musculoskeletal No Depression No Medical History Updates: patient denies medical probems. dmentia otherwise Surgical History: partial hip replacement R hip, cataract surgery, lipoma removals,radial keratotomy Family History Updates: unkown at this time - Social History Smoking status: Never smoker second hand exposure: No Substance use type: does not use Alcohol intake: never Alcohol intake frequency: does not drink Housing: house Household members: spouse Current occupational status: retired Does patient use chewing tobacco?: No Current residence: Apartment/Private Home Review of Systems ROS unobtainable: due to mental status (he denies pain) Exam Vital Signs: Temperature 98.1 F 12/08/17 07:19 Pulse Rate 85 12/08/17 07:19 Respiratory Rate 16 12/08/17 07:19 Blood Pressure 143/79 H 06/11/18 07:19 Pulse Oximetry 98 12/08/17 07:19 Height/Weight/BMI: Height 1.83 m Weight 74 kg Body Mass Index 22.2 - Constitutional Present: no acute distress, well nourished, well developed - Routine HEENT Exam Head: Present: normocephalic, atraumatic Eye: Present: EOMI, PERRL ENT: Present: mucous membranes moist, oropharynx clear - Routine Neck Exam Present: supple - Routine Respiratory Exam Present: CTA bilaterally - Routine Cardiovascular Exam Present: RRR - Routine Abdominal Exam Present: soft, normoactive bowel sounds, non distended, non tender - Routine Extremities Exam Absent: cyanosis, clubbing, edema - Routine Skin Exam Absent: rash Comments: wound on L posterior heel. Wound R posterior heel and R lateral malleolus. minimal drainage. No erythema. - Routine Neurological Exam Present: alert, CN II-XII intact, normal speech. Absent: motor deficit - Routine Psychiatric Exam Present: normal affect Results - Labs CBC & Chem 7: 12/08/17 06:00 12/08/17 06:00 Microbiology Results: Microbiology 12/04/17 17:05 Ankle, Right, Bone Surgical Culture - Final Coag negative Staphylococcus Impression: Right lateral malleolus wound on the RLE, status post debridement by Dr. No with bone biopsy that was negative for osteomyelitis. Right posterior heel wound status post debridement Left heel wound Dementia, unspecified Diabetes mellitus, insulin requiring Hypothyroidism Functional decline and debility Recommendation: I would be very reluctant to commit him to a six-week course of IV antibiotics. Since the path report is negative for osteomyelitis I would recommend treating him with an oral antibiotic such as doxycycline 100 mg by mouth twice a day for 10-14 days, if he will take this. Continue with wound care for his heel wounds. Discussed with Dr. Lopez.
[2017-12-08] MEDS ORDERED: HALOPERIDOL 0.5 MG TABLET PO PRN (10:00)
--- NOTE | 2017-12-08 10:00 | Progress Note ---
Progress Note: Patient was sleeping this AM. Discussed care with nurse, who reported patient has been more cooperative in past 24 hours. She requests a low-dose PRN still be available if patient becomes irritable, for difficult cares, etc. Will order Haldol 0.5mg PO q 4hrs PRN and leave PRN IV lorazepam available.
--- NOTE | 2017-12-08 11:21 | Pharmacy Consult-Antibiotics ---
Pharmacy Consult-Vancomycin - Laboratory Information WBC 9.2 T/MM3 (4.5-11.0) 12/08/17 06:00 BUN 4.0 MG/DL (9-20) L 12/08/17 06:00 Creatinine 0.7 mg/dL (0.8-1.5) L 12/08/17 06:00 Vancomycin Trough 30.22 ug/mL (15-20) H* 12/07/17 04:48 - Consult Information VANCOMYCIN SHORT REVIEW: Today's SCr = 0.7mg/dL. Calculated CrCl = 73 mL/min Will continue the Vancomycin 1,500mg IV Q12hrs. Trough ordered for a.m. Will continue to monitor and make adjustments accordingly. Thank you.
[2017-12-08] MEDS: D5-1/2NS with KCL 20mEq 1,000 ML IV SCH (11:56)
[2017-12-08] MEDS ORDERED: DEXTROSE 50% INJ 50ml VIAL IV ONE (11:57)
--- NOTE | 2017-12-08 14:01 | Progress Note ---
- Date 12/08/17 Subjective: Patient seen this afternoon resting in bed. He arouses easily and is cooperative. He states he "feels fine." Denies chest pain, shortness of breath, fever or chills. Nurses surmise that he is fasting for but he has said he won't eat in the evenings at all. Objective Vital signs: Temperature 98.1 F 12/08/17 07:19 Pulse Rate 85 12/08/17 07:19 Respiratory Rate 16 12/08/17 07:19 Blood Pressure 143/79 H 12/08/17 07:19 Pulse Oximetry 98 12/08/17 07:19 Height/Weight/BMI: Height 1.83 m Weight 74 kg Body Mass Index 22.2 - Constitutional Present: no acute distress, well nourished, well developed - Routine HEENT Exam Head: Present: normocephalic, atraumatic - Routine Respiratory Exam Present: CTA bilaterally. Absent: wheezes - Routine Cardiovascular Exam Present: RRR, no murmur - Routine Abdominal Exam Present: soft, non distended, non tender - Routine Extremities Exam Present: no edema, normal capillary refill Comments: Bilateral feet are dressed with gauze, wounds not evaluated at this time as wound team is following patient - Routine Skin Exam Present: dry, warm - Routine Neurological Exam Present: alert, altered mental status - Routine Lymphatic Exam Lymphatic: Absent: adenopathy - Routine Psychiatric Exam Present: normal affect, cooperative Results - Labs CBC & Chem 7: 12/08/17 06:00 12/08/17 06:00 Microbiology Results: Microbiology 12/04/17 17:05 Ankle, Right, Bone Surgical Culture - Final Coag negative Staphylococcus Assessment and Plan (1) Dementia Problem details: With delirium/encephalopathy Current visit: Yes Status: Acute (2) Chronic foot ulcer Problem details: With necrosis and bilateral heels, right lateral malleolus Current visit: Yes Status: Acute (3) Osteomyelitis of ankle Current visit: Yes Status: Acute Assessment and Plan: Impression Encephalopathy vs Dementia with behavioral dyscontrol Electrolytes and blood counts (other than chronic anemia) normal. Not seeing obvious source of systemic infection/inflammation. Chronic wounds to Left heel and Right lateral malleolus Constipation Dehydration Type II DM Hypothyroidism Anemia - suspect chronic disease Gen debility Functional decline at home Plan Path report negative for osteomyelitis. Dr. Guzman recommends treating with doxycycline 100 mg twice a day for 10-14 days. As patient is refusing to eat and refusing pills periodically, IV doxy may be substituted for po if needed. Continue to offload wounds. Wound care following. Sugars have been well controlled. Pt had a BS of 45 this morning and was given 1/2 amp of D50 and D51/2NS w/ KCl was started at 50ml/hr as pt is not eating or drinking. His Lantus remains on hold. Haldol and lorazepam as needed for increased agitation and behaviors. Psych following. DVT Prophylaxis: Lovenox Resuscitation Status: Full Code - Physician Narrative Physician: Kelly Lopez MD Narrative: Date: 12/08/17 Time: 1650 I have independently evaluated and examined this patient. I reviewed the chart, the patient's history, and the SOAKING ROOM OPERATOR/PA's documented findings as above. We discussed and formulated the assessment and plan as above with additions as below: Mr. Mayorga was resting comfortably on several occasions when visited today although early this afternoon he was awake and nodded yes/no to several questions but did not verbalize any responses. He indicated no to pain and when asked if he had any concerns. Respirations are nonlabored with fair airflow, anterior breath sounds are clear Regular rhythm, S1-S2 Wound care nurse changing dressing on the left foot at time of my visit-the heel is without drainage or erythema but there is central darkened tissue present. Right heel and ankle had been wrapped prior to my arrival. Pathology reviewed earlier today with Dr. Guzman-no evidence of osteomyelitis right fibular head. Antibiotic plans discussed with Dr. Guzman-converted to doxycycline for staph coverage. The family has expressed interest in transferred to [facility] when medically stable. Hypoglycemic earlier today-D50 given and IV fluids initiated. Patient taking oral medications at least intermittently-may be able to add Marinol; I doubt he would use Megace as an appetite stimulant. Hospital Course Summary Disclaimer: The visit summary below is not to be considered part of the above Progress Note. Hospital Course: 12/02/17 Inpatient admission to [facility] secondary to concern for worsening encephalopathy and care failure in outpatient setting. Initiate IVF for NS for hydration, monitoring volume status. Wound consult for chronic leg wounds. Psych consult for devaluation of dementia with declining functional status and worsening behaviors. Continue with home medications. PT/OT eval and treat due to functional decline. Monitor sugars secondary to diabetes and Lantus use. Work on bowel motivation - prn MOM and Dulcolax in addition to starting routine Miralax. Haldol and lorazepam as needed for increased agitation and behaviors. Monitor lab. SCD for DVT prevention. Full code ordered. Care to return to Dr Salmeron at time of discharge from [facility]. 12/03/17 Wound team to evaluate bilateral lower ext today. Psychiatric consultation. Overall blood counts and electrolytes are normal. 12/04/17 Diabetic foot ulcers, osteomyelitis identified at fibular head by MRI. Surgical debridement this afternoon and cultures obtained. Will initiate therapy empirically for diabetic foot ulcers with osteo-with vancomycin and Unasyn pending culture results. Arterial Dopplers will be needed at some point to evaluate for PVD. Monitor sugars secondary to diabetes; Lantus on hold. 12/05/2017 Diabetic foot ulcers, osteomyelitis identified at fibular head by MRI. Surgical debridement and cultures obtained- still pending. Continue broad spectrum coverage for diabetic foot ulcers with osteo-with vancomycin and Unasyn pending culture results. Arterial Dopplers will be needed at some point to evaluate for PVD- extremities are warm currently. Monitor carefully. Exam c/w chronic vascular disease. Mild increase in leukocytosis- suspect due to debridement yesterday. Afebrile. Monitor sugars secondary to diabetes; Lantus on hold. BG remains fairly well controlled on current. Haldol and lorazepam as needed for increased agitation and behaviors. Psych following. 12/06/2017 Diabetic foot ulcers, osteomyelitis identified at fibular head by MRI. Surgical debridement and cultures obtained- early growth identified, the cultures remain pending Continue broad spectrum coverage for diabetic foot ulcers with osteo-with vancomycin and Unasyn pending culture results. Arterial Dopplers will be needed at some point to evaluate for PVD- extremities are warm currently. Monitor carefully. Exam c/w chronic vascular disease. Leukocytosis is improved today. pt. remains afebrile. Monitor sugars secondary to diabetes; Lantus on hold. BG remains fairly well controlled on current. Haldol and lorazepam as needed for increased agitation and behaviors. Psych following. Patient continues to refuse care to his detriment. Difficult situation. Has been recommended to be placed several times. No family present today. Potassium is trending down. Will add KCL to his IVF. Continue gentle IVF as he is not eating consistently. 12/07/17 Continue current antibiotics, PICC line placed yesterday evening. Repeat CRP in a.m. ID consult in a.m. Ulcers developed after hospitalization, may be pressure ulcers rather than diabetic wounds. 12/07/17 Psych: Primary team has discontinued scheduled Haldol and ordered 2mg IV TID PRN agitation; agree with this and can scheduled if needed. Can also utilize PRN lorazepam available. Consider pre-medicatinng with low dose lorazepam (0.25mg IV) 20-30 minutes prior to significant cares. Will continue to follow. 12/08/17 Path report negative for osteomyelitis. Dr. Guzman recommends treating with doxycycline 100 mg twice a day for 10-14 days. As patient is refusing to eat and refusing pills periodically, IV doxy may be substituted for po if needed. Continue to offload wounds. Wound care following. Sugars have been well controlled. Pt had a BS of 45 this morning and was given 1/2 amp of D50 and D51/2NS w/ KCl was started at 50ml/hr as pt is not eating or drinking. His Lantus remains on hold. Haldol and lorazepam as needed for increased agitation and behaviors. Psych following.
[2017-12-08] MEDS: DRONABINOL 2.5 MG CAPSULE PO SCH (22:00)
[2017-12-08] MEDS: HALOPERIDOL 0.5 MG TABLET PO SCH (22:00)
[2017-12-09] MEDS: PANTOPRAZOLE 40 MG INJECTION IVP PRN ×2 (07:36→18:54)
[2017-12-09] MEDS: PANTOPRAZOLE 20 MG TABLET PO SCH ×2 (07:52→18:40)
[2017-12-09] MEDS: SENNA + DOCUSATE TABLET PO SCH ×2 (08:11→22:53)
[2017-12-09] MEDS: D5-1/2NS with KCL 20mEq 1,000 ML IV SCH (08:11)
[2017-12-09] MEDS: HALOPERIDOL 0.5 MG TABLET PO SCH ×2 (08:11→18:49)
[2017-12-09] MEDS: DRONABINOL 2.5 MG CAPSULE PO SCH ×2 (08:42→22:52)
[2017-12-09] MEDS: LEVOTHYROXINE 100 MCG TABLET PO SCH (08:42)
[2017-12-09] MEDS: POLYETHYL GLYCOL 3350 17gm PACKET PO SCH (08:42)
[2017-12-09] MEDS: ENOXAPARIN 40 MG/0.4 ML INJECTION SQ SCH (08:43)
[2017-12-09] MEDS: DOXYCYCLINE 100 MG in NS 250ml 250 ML IV PRN ×2 (08:46→18:54)
[2017-12-09] MEDS: SALINE FLUSH 10ml SYRINGE IVF PRN (08:46)
--- NOTE | 2017-12-09 09:05 | Progress Note ---
Progress Note: Resumed scheduled Haldol 0.5mg PO TID yesterday as it is helpful for cooperation , but patient is refusing PO meds. Recommend switching to Haldol 0.25mg IV TID instead. If patient continues to be uncooperative, could increase to 0.5mg IV TID.
--- NOTE | 2017-12-09 11:40 | Progress Note ---
- Date 12/09/17 Subjective: Patient is seen resting in bed this am. He opens his eyes to his name but does not respond to questions. Nurses report he is refusing meds and to eat this am. He did allow a bed bath. Objective Vital signs: Temperature 98.2 F 12/09/17 07:29 Pulse Rate 99 12/09/17 07:29 Respiratory Rate 16 12/09/17 07:29 Blood Pressure 143/88 H 12/09/17 07:29 Pulse Oximetry 98 12/09/17 07:29 Height/Weight/BMI: Height 1.83 m Weight 72.8 kg Body Mass Index 22.2 - Constitutional Present: no acute distress, well nourished, well developed - Routine HEENT Exam Head: Present: normocephalic, atraumatic - Routine Respiratory Exam Present: CTA bilaterally. Absent: wheezes - Routine Cardiovascular Exam Present: RRR, no murmur - Routine Abdominal Exam Present: soft, non distended, non tender - Routine Extremities Exam Present: no edema, normal capillary refill Comments: heels covered w/ wound care dressings - Routine Skin Exam Present: dry, warm - Routine Neurological Exam Absent: alert, oriented X3 - Routine Lymphatic Exam Lymphatic: Absent: adenopathy - Routine Psychiatric Exam Present: unable to assess Results - Labs CBC & Chem 7: 12/08/17 06:00 12/08/17 06:00 Microbiology Results: Microbiology 12/04/17 17:05 Ankle, Right, Bone Surgical Culture - Final Coag negative Staphylococcus Assessment and Plan (1) Dementia Problem details: With delirium/encephalopathy Current visit: Yes Status: Acute (2) Chronic foot ulcer Problem details: With necrosis and bilateral heels, right lateral malleolus Current visit: Yes Status: Acute (3) Osteomyelitis of ankle Current visit: Yes Status: Acute Assessment and Plan: Impression Encephalopathy vs Dementia with behavioral dyscontrol Electrolytes and blood counts (other than chronic anemia) normal. Not seeing obvious source of systemic infection/inflammation. Chronic wounds to Left heel and Right lateral malleolus Constipation Dehydration Type II DM Hypothyroidism Anemia - suspect chronic disease Gen debility Functional decline at home Plan Continue PO doxy for infection of foot wounds and use IV if pt refuses po. ( Doxy initiated on 12/08. Recommend tx through 12/20/17) Continue to offload wounds. Wound care following. Dr. Ortiz recommend switching to Haldol 0.25mg IV TID as pt is refusing oral meds (including Haldol.) If patient continues to be uncooperative, could increase to 0.5mg IV TID. No labs drawn today as they have been stable. VSS. Marinol started yesterday. He did eat 50% of supper last night. Add mirtazipine 7.5mg at hs. Blood sugars are stable. Continues on D5 1/2NS w/ KCl at 50ml/hr (initiated yesterday). His Lantus remains on hold. Start B12 supplementation for low B12 level. DVT Prophylaxis: Lovenox Resuscitation Status: Full Code - Time spent with patient Time with patient PN: 25 minutes - Physician Narrative Physician: Gabriel Andre MD Narrative: Date: 12/09/17 Time: 1734 Have independently interviewed & examined pt. Chart reviewed Case discussed with CM & my PA. Care plan developed with my supervision; agree with above. Oral intake still decreased and variable-did refuse meds this am. Resting in bed -will awaken and open eyes to verbal stimuli. Answers questions with brief phrases. Denies ab pain, nausea, SOA or chest pain. Lungs: decreased bilaterally, no distress CV: regular AB: soft nt/nd Plan: Continue with antibiotic therapy-IV if pt refuses oral. B12 to start - will give IM if refusing oral. Continue with IVF. Monitor lab. Hospital Course Summary Disclaimer: The visit summary below is not to be considered part of the above Progress Note. Hospital Course: 12/02/17 Inpatient admission to [facility] [place] secondary to concern for worsening encephalopathy and care failure in outpatient setting. Initiate IVF for NS for hydration, monitoring volume status. Wound consult for chronic leg wounds. Psych consult for devaluation of dementia with declining functional status and worsening behaviors. Continue with home medications. PT/OT eval and treat due to functional decline. Monitor sugars secondary to diabetes and Lantus use - hold on Lantus due to decreased oral intake. Work on bowel motivation - prn MOM and Dulcolax in addition to starting routine Miralax. Haldol and lorazepam as needed for increased agitation and behaviors. Monitor lab. SCD for DVT prevention. Full code ordered. Care to return to Dr Salmeron at time of discharge from [facility] [place]. 12/03/17 Wound team to evaluate bilateral lower ext today. Psychiatric consultation. Overall blood counts and electrolytes are normal. 12/04/17 Diabetic foot ulcers, osteomyelitis identified at fibular head by MRI. Surgical debridement this afternoon and cultures obtained. Will initiate therapy empirically for diabetic foot ulcers with osteo-with vancomycin and Unasyn pending culture results. Arterial Dopplers will be needed at some point to evaluate for PVD. 12/05/2017 Continue broad spectrum coverage for diabetic foot ulcers with osteo-with vancomycin and Unasyn pending culture results. Mild increase in leukocytosis- suspect due to debridement yesterday. Afebrile. Haldol and lorazepam as needed for increased agitation and behaviors. Psych following. 12/06/2017 Continue broad spectrum coverage for diabetic foot ulcers with osteo-with vancomycin and Unasyn pending culture results. Leukocytosis is improved today. Pt. remains afebrile. Haldol and lorazepam as needed for increased agitation and behaviors. Psych following. Patient continues to refuse care to his detriment. Difficult situation. Has been recommended to be placed several times. No family present today. Potassium is trending down. Will add KCL to his IVF. Continue gentle IVF as he is not eating consistently. 12/07/17 Continue current antibiotics, PICC line placed yesterday evening. Repeat CRP in a.m. ID consult in a.m. Ulcers developed after hospitalization, may be pressure ulcers rather than diabetic wounds. 12/07/17 Psych: Primary team has discontinued scheduled Haldol and ordered 2mg IV TID PRN agitation; agree with this and can scheduled if needed. Can also utilize PRN lorazepam available. Consider pre-medicating with low dose lorazepam (0.25mg IV) 20-30 minutes prior to significant cares. Will continue to follow. 12/08/17 Path report negative for osteomyelitis. Dr. Guzman recommends treating with doxycycline 100 mg twice a day for 10-14 days. As patient is refusing to eat and refusing pills periodically, IV doxy may be substituted for oral if needed. Continue to offload wounds. Wound care following. Sugars have been well controlled. Pt had a BS of 45 this morning and was given 1 /2 amp of D50 and D51/2NS w/ KCl was started at 50ml/hr as pt is not eating or drinking. His Lantus remains on hold. Haldol and lorazepam as needed for increased agitation and behaviors. Psych following. 12/09/17 Continue PO doxy for infection of foot wounds and use IV if pt refuses oral. ( Doxy initiated on 12/08. Recommend tx through 12/20/17) Dr. Ortiz recommend switching to Haldol 0.25mg IV TID as pt is refusing oral medications (including Haldol.) If patient continues to be uncooperative, could increase to 0.5mg IV TID. Marinol started yesterday. Patient has refused Marinol. Add mirtazapine 7.5mg at HS. Start B12 supplementation for low B12 level.
--- NOTE | 2017-12-09 12:14 | Wound Care Progress Note ---
Wound Center Progress Note: Pt seen 12/08/17 for wound consultation r/t bilateral heel wounds. Seen with Reina CRAIN. Pt lying in bed, just received Ativan. Nurse reports the pt has been kicking off foot dressings. Nurse applied kerlix wraps to bilateral feet which has been helpful in keeping dressings in place. Pt went to OR with Dr. No for debridement last week. R lateral malleolus: PI. Wound bed slough and pink non- granulating tissue, no active drainage, scant dried serosanguineous drainage on dressing removed. Periwound: blanchable erythema. R lateral heel: PI . Wound bed : pink non-granulating tissue, no active drainage. Periwound: blanchable erythema, scaly. L heel: PI. Wound bed has eschar, slough, and pink non- tissue granulating, no active drainage. Periwound: blanchable erythema, scaly. To R lateral malleolus/R lateral heel/L heel: Apply hydrofera blue to wound bed. Cover with Mepilex, wrap with kerlex, change q 3 days. Float heels while sitting and or in bed.
--- NOTE | 2017-12-09 12:19 | Wound Care Progress Note ---
Wound Center Progress Note: Measurements: R lateral malleolus: 3.2 (L) 3.2 (W) x 0.2 (D). R lateral heel: 2.2 (L) x 4 (W) x 0.2 (D). L heel: 4 (L) x 6.8 (W) x 0.3 (D).
[2017-12-09] MEDS: MIRTAZAPINE 15 MG TABLET PO SCH (22:52)
[2017-12-10] MEDS: HALOPERIDOL 5 MG/ML INJECTION IVP SCH ×4 (00:21→22:49)
[2017-12-10] MEDS ORDERED: FALL RISK - PHARMACY CONSULT MC ONE (06:21)
[2017-12-10] MEDS: LEVOTHYROXINE 100 MCG TABLET PO SCH (06:30)
[2017-12-10] MEDS: PANTOPRAZOLE 20 MG TABLET PO SCH ×2 (06:30→18:10)
[2017-12-10] MEDS: D5-1/2NS with KCL 20mEq 1,000 ML IV SCH (08:14)
[2017-12-10] MEDS ORDERED: CYANOCOBALAMIN (B-12) 500mcg TABLET PO SCH (09:00)
--- NOTE | 2017-12-10 09:20 | ID Progress Note ---
Subjective Date: 12/10/17 Subjective: Mr. Mayorga denies any problems to me. He denies pain. Wants some margarito crackers. He has refused the doxycycline and it was changed to IV. Exam Vital Signs: Temperature 98.6 F 12/10/17 08:00 Pulse Rate 98 12/10/17 08:00 Respiratory Rate 16 12/10/17 08:00 Blood Pressure 134/69 12/10/17 08:00 Pulse Oximetry 98 12/10/17 08:00 Height/Weight/BMI: Height 1.83 m Weight 70.8 kg Body Mass Index 22.2 - Constitutional Present: no acute distress, well nourished, well developed - Routine HEENT Exam Head: Present: normocephalic, atraumatic Eye: Present: EOMI, PERRL ENT: Present: mucous membranes moist - Routine Neck Exam Present: supple - Routine Respiratory Exam Present: CTA bilaterally - Routine Cardiovascular Exam Present: RRR - Routine Abdominal Exam Present: soft, normoactive bowel sounds, non distended, non tender - Routine Extremities Exam Absent: cyanosis, clubbing, edema - Routine Skin Exam Absent: rash Comments: wounds on heels wrapped - Routine Neurological Exam Present: alert, CN II-XII intact, normal speech - Routine Psychiatric Exam Present: normal affect Results - Labs CBC & Chem 7: 12/10/17 05:12 12/10/17 05:12 Microbiology Results: Microbiology 12/04/17 17:05 Ankle, Right, Bone Surgical Culture - Final Coag negative Staphylococcus Impression: Right lateral malleolus wound on the RLE, status post debridement by Dr. No with bone biopsy that was negative for osteomyelitis. Right posterior heel wound status post debridement Left heel wound Dementia, unspecified Diabetes mellitus, insulin requiring Hypothyroidism Functional decline and debility Recommendation: Continue IV doxycycline for 10-14 days for his wounds. I'll sign off and see him again as needed.
[2017-12-10] MEDS: DRONABINOL 2.5 MG CAPSULE PO SCH ×2 (10:08→22:36)
[2017-12-10] MEDS: POLYETHYL GLYCOL 3350 17gm PACKET PO SCH (10:09)
[2017-12-10] MEDS: SENNA + DOCUSATE TABLET PO SCH ×2 (10:09→22:36)
[2017-12-10] MEDS: ENOXAPARIN 40 MG/0.4 ML INJECTION SQ SCH (10:38)
[2017-12-10] MEDS: DOXYCYCLINE 100 MG in NS 250ml 250 ML IV PRN (14:25)
[2017-12-10] MEDS: CYANOCOBALAMIN (B-12) 1,000mcg/ml INJECTION IM SCH (15:37)
--- NOTE | 2017-12-10 17:02 | Progress Note ---
- Date 12/10/17 Subjective: F/U: Behavioral changes, Leg wounds Significant other came up to visit - reports pt likes to have pizza to eat. Did order a cheese pizza and patient at about half of it. Still has been refusing oral medications - needing to give Doxycycline and Haldol IV as refusing oral medications. Not participating with therapy-not wanting to be up with them. Objective Vital signs: Temperature 98.3 F 12/10/17 15:51 Pulse Rate 86 12/10/17 15:51 Respiratory Rate 16 12/10/17 15:51 Blood Pressure 146/85 H 12/10/17 15:51 Pulse Oximetry 97 12/10/17 15:51 Height/Weight/BMI: Height 1.83 m Weight 70.8 kg Body Mass Index 22.2 - Constitutional Present: well nourished, well developed, average body habitus - Routine HEENT Exam Head: Present: normocephalic, atraumatic Eye: Present: EOMI, PERRL ENT: Present: mucous membranes moist - Routine Respiratory Exam Present: CTA bilaterally. Absent: respiratory distress - Routine Cardiovascular Exam Present: RRR, no murmur - Routine Abdominal Exam Present: soft, non distended, non tender. Absent: normoactive bowel sounds ( Decreased) - Routine Extremities Exam Present: no edema. Absent: cyanosis, clubbing - Routine Skin Exam Present: dry, warm - Routine Neurological Exam Present: alert, moving all extremities, vision grossly intact, hearing grossly intact. Absent: motor deficit - Routine Psychiatric Exam Comments: Answers questions with brief phrases Results - Labs CBC & Chem 7: 12/10/17 05:12 12/10/17 05:12 Microbiology Results: Microbiology 12/04/17 17:05 Ankle, Right, Bone Surgical Culture - Final Coag negative Staphylococcus Assessment and Plan (1) Dementia Problem details: With delirium/encephalopathy Current visit: Yes Status: Acute (2) Chronic foot ulcer Problem details: With necrosis and bilateral heels, right lateral malleolus Current visit: Yes Status: Acute (3) Osteomyelitis of ankle Current visit: Yes Status: Acute Assessment and Plan: Impression Encephalopathy vs Dementia with behavioral dyscontrol Electrolytes and blood counts (other than chronic anemia) normal. Not seeing obvious source of systemic infection/inflammation. Chronic wounds to Left heel and Right lateral malleolus Constipation Dehydration Type II DM Hypothyroidism Anemia - suspect chronic disease Gen debility Functional decline at home Plan Did eat half of pizza - SO reports very picky about food. Still refusing oral medications. Resistant to therapy. Discussed with about current status. Medically doing well - do not see medical process clouding his sensorium. Decreased oral drive and refusal for oral meds and therapy slowing progression. Will continue to work with patient on oral intake/meds/therapy. Concern that underlying dementia is limiting factor. Change B12 to IM as pt refusing medication. Continue low flow IVF for hydration due to decreased oral drive. Recheck lab in am. Case discussed with CM and SO. Time spent with patient care 35 minutes. DVT Prophylaxis: Lovenox Resuscitation Status: Full Code - Time spent with patient Time with patient PN: 35 minutes - Physician Narrative Physician: Gabriel Andre MD Narrative: Date: 12/10/17 Time: 1657 Hospital Course Summary Disclaimer: The visit summary below is not to be considered part of the above Progress Note. Hospital Course: 12/02/17 Inpatient admission to [facility] secondary to concern for worsening encephalopathy and care failure in outpatient setting. Initiate IVF for NS for hydration, monitoring volume status. Wound consult for chronic leg wounds. Psych consult for devaluation of dementia with declining functional status and worsening behaviors. Continue with home medications. PT/OT eval and treat due to functional decline. Monitor sugars secondary to diabetes and Lantus use - hold on Lantus due to decreased oral intake. Work on bowel motivation - prn MOM and Dulcolax in addition to starting routine Miralax. Haldol and lorazepam as needed for increased agitation and behaviors. Monitor lab. SCD for DVT prevention. Full code ordered. Care to return to Dr Salmeron at time of discharge from [facility]. 12/03/17 Wound team to evaluate bilateral lower ext today. Psychiatric consultation. Overall blood counts and electrolytes are normal. 12/04/17 Diabetic foot ulcers, osteomyelitis identified at fibular head by MRI. Surgical debridement this afternoon and cultures obtained. Will initiate therapy empirically for diabetic foot ulcers with osteo-with vancomycin and Unasyn pending culture results. Arterial Dopplers will be needed at some point to evaluate for PVD. 12/05/2017 Continue broad spectrum coverage for diabetic foot ulcers with osteo-with vancomycin and Unasyn pending culture results. Mild increase in leukocytosis- suspect due to debridement yesterday. Afebrile. Haldol and lorazepam as needed for increased agitation and behaviors. Psych following. 12/06/2017 Continue broad spectrum coverage for diabetic foot ulcers with osteo-with vancomycin and Unasyn pending culture results. Leukocytosis is improved today. Pt. remains afebrile. Haldol and lorazepam as needed for increased agitation and behaviors. Psych following. Patient continues to refuse care to his detriment. Difficult situation. Has been recommended to be placed several times. No family present today. Potassium is trending down. Will add KCL to his IVF. Continue gentle IVF as he is not eating consistently. 12/07/17 Continue current antibiotics, PICC line placed yesterday evening. Repeat CRP in a.m. ID consult in a.m. Ulcers developed after hospitalization, may be pressure ulcers rather than diabetic wounds. 12/07/17 Psych: Primary team has discontinued scheduled Haldol and ordered 2mg IV TID PRN agitation; agree with this and can scheduled if needed. Can also utilize PRN lorazepam available. Consider pre-medicating with low dose lorazepam (0.25mg IV) 20-30 minutes prior to significant cares. Will continue to follow. 12/08/17 Path report negative for osteomyelitis. Dr. Guzman recommends treating with doxycycline 100 mg twice a day for 10-14 days. As patient is refusing to eat and refusing pills periodically, IV doxy may be substituted for oral if needed. Continue to offload wounds. Wound care following. Sugars have been well controlled. Pt had a BS of 45 this morning and was given 1 /2 amp of D50 and D51/2NS w/ KCl was started at 50ml/hr as pt is not eating or drinking. His Lantus remains on hold. Haldol and lorazepam as needed for increased agitation and behaviors. Psych following. 12/09/17 Continue PO doxy for infection of foot wounds and use IV if pt refuses oral. ( Doxy initiated on 12/08. Recommend tx through 12/20/17) Dr. Ortiz recommend switching to Haldol 0.25mg IV TID as pt is refusing oral medications (including Haldol.) If patient continues to be uncooperative, could increase to 0.5mg IV TID. Marinol started yesterday. Patient has refused Marinol. Add mirtazapine 7.5mg at HS. Start B12 supplementation for low B12 level. 12/10/17 Did eat half of pizza - SO reports very picky about food. Still refusing oral medications. Resistant to therapy. Discussed with about current status. Medically doing well - do not see medical process clouding his sensorium. Decreased oral drive and refusal for oral meds and therapy slowing progression. Will continue to work with patient on oral intake/meds/therapy. Concern that underlying dementia is limiting factor. Change B12 to IM as pt refusing medication. Continue low flow IVF for hydration due to decreased oral drive.
[2017-12-10 17:46] VITALS: BMI 21.2
[2017-12-10] MEDS: PANTOPRAZOLE 40 MG INJECTION IVP PRN (18:09)
[2017-12-10] MEDS: MIRTAZAPINE 15 MG TABLET PO SCH (22:37)
[2017-12-11] MEDS: D5-1/2NS with KCL 20mEq 1,000 ML IV SCH (05:29)
[2017-12-11] MEDS: LEVOTHYROXINE 100 MCG TABLET PO SCH (05:38)
[2017-12-11] MEDS: PANTOPRAZOLE 20 MG TABLET PO SCH ×2 (05:38→17:25)
[2017-12-11] MEDS: CYANOCOBALAMIN (B-12) 1,000mcg/ml INJECTION IM SCH (08:31)
[2017-12-11] MEDS: SALINE FLUSH 10ml SYRINGE IVF PRN ×4 (08:31→20:55)
[2017-12-11] MEDS: ENOXAPARIN 40 MG/0.4 ML INJECTION SQ SCH (08:31)
[2017-12-11] MEDS: HALOPERIDOL 5 MG/ML INJECTION IVP SCH ×3 (08:32→20:58)
--- NOTE | 2017-12-11 09:37 | Wound Care Progress Note ---
Wound Center Progress Note: Pt seen for follow up wound care/dressing change. Seen with Miriam Connor APRN. Pt resting in bed, pre-medicated with IV Ativan. Bilateral heel and R lateral malleolus dressings removed. Miriam Connor APRN performed sharp debridement with a curette to R malleolus and bilateral heel wounds. R lateral malleolus: 40% slough 60% pink non-granulating tissue, no drainage on dressing removed, complaints of pain with debridement, no active drainage. Periwound: blanchable erythema. R lateral heel: wound bed has pink non-granulating tissue, no drainage on dressing removed, no active drainage. Periwound: blanchable. L heel : wound bed has central area of necrosis, surrounded by yellow slough and scant pink non-granulating tissue. Dried serosanguineous drainage on dressing removed , scant sanguinous drainage with debridement. Periwound: blanchable erythema. Continue with dressing changes per order. Float heels while in chair and or in bed, wear foam boots PRN/as tolerated.
[2017-12-11] MEDS: SENNA + DOCUSATE TABLET PO SCH ×3 (09:49→20:54)
[2017-12-11] MEDS: POLYETHYL GLYCOL 3350 17gm PACKET PO SCH ×2 (09:49→12:58)
[2017-12-11] MEDS: DRONABINOL 2.5 MG CAPSULE PO SCH ×3 (09:49→20:54)
--- NOTE | 2017-12-11 11:17 | Orthopedic Progress Note ---
Date: Date: 12/11/17 Time: 1111 Subjective/Severity of Illness: Patient is lying in bed this morning. He is alert and pleasant when I visit, nursing reports patient was agitated this morning. He denies any pain in his feet. He is agreeable to wound dressing changes and debridement. Orthopedic Exam Vital signs: Temperature 97.7 F 12/06/17 17:00 Pulse Rate 79 12/06/17 17:00 Respiratory Rate 18 12/06/17 17:00 Blood Pressure 159/83 H 12/06/17 17:00 Pulse Oximetry 99 12/06/17 17:00 - Constitutional General Appearance: Present: alert, cooperative, no acute distress - Respiratory Exam Present: non-labored - Cardiovascular Exam Present: pedal pulses intact - Extremities Exam Present: no edema. Absent: cyanosis, clubbing - Detailed Lower Extremity Exam Comments: Right heel wound with minimal yellow slough tissue, 75% debridement with sharp curette. Good granulation tissue noted. Right lateral malleolus wound also has yellow slough tissue, 25% of wound debrided with sharp curette. Left heel wound with thick yellow fibrous tissue and eschar centrally in the wound. Was unable to debrided with sharp curette. Dr. No debride approximately 25% with blade and pick ups. Patient tolerated this well. See wound care notes for full measurements and details. - Integumentary Exam Present: pink, warm, dry - Lymphatic Lymphatic: Absent: adenopathy - Psychiatric Exam Present: alert - Labs Result Diagrams: 12/11/17 04:31 12/11/17 04:31 Abnormal lab results 12/11/17 12/11/17 Range/Units 04:31 04:31 RBC 3.93 L (4.50-5.90) M/MM3 Hgb 10.6 L (13.5-17.5) GM/DL Hct 32.4 L (41-53) % MPV 8.4 L (9.4-12.4) UM3 Eosinophils % (Manual) 6.0 H (0-4) % Eosinophils # (Manual) 0.6 H (0-0.5) T/MM3 Glucose 194 H (75-110) MG/DL Prealbumin 8.6 L (17.6-36.0) mg/dL H & H 12/03/17 12/04/17 12/05/17 Range/Units 04:19 04:20 04:37 Hgb 9.4 L D 9.4 L 10.8 L D (13.5-17.5) GM/DL Hct 29.5 L 29.4 L 32.9 L D (41-53) % 12/06/17 12/07/17 12/08/17 Range/Units 07:49 04:48 03:45 Hgb 10.6 L 9.3 L D Cancelled (13.5-17.5) GM/DL Hct 32.3 L 28.8 L Cancelled (41-53) % 12/08/17 12/10/17 12/11/17 Range/Units 06:00 05:12 04:31 Hgb 10.6 L D 11.5 L 10.6 L (13.5-17.5) GM/DL Hct 32.0 L D 35.2 L 32.4 L (41-53) % Orthopedic Assessment and Plan (1) Chronic foot ulcer Status: Acute Qualifiers: Laterality: unspecified laterality Non-pressure ulcer stage: with fat layer exposed Qualified Code(s): L97.502 - Non-pressure chronic ulcer of other part of unspecified foot with fat layer exposed Problem Details: With necrosis and bilateral heels, right lateral malleolus Assessment and Plan: Wound debridement in OR by Dr. No on 12/04/17 Wound debridement today, will continued Hydrofera blue, change q3days. May consider wound vac for left heel wound. Path report negative for osteomyelitis. Culture coag neg staph. Dr. Guzman managing antibiotics. Pt encouraged to use the pillows and foam to keep pressure off the sores. Hospitalist managing medically. Patient may be WBAT in post op shoes. Thank you for consultation. Hospital Course Summary Disclaimer: The visit summary below is not to be considered part of the above Progress Note. Hospital Course: 12/02/17 Inpatient admission to [facility] secondary to concern for worsening encephalopathy and care failure in outpatient setting. Initiate IVF for NS for hydration, monitoring volume status. Wound consult for chronic leg wounds. Psych consult for devaluation of dementia with declining functional status and worsening behaviors. Continue with home medications. PT/OT eval and treat due to functional decline. Monitor sugars secondary to diabetes and Lantus use - hold on Lantus due to decreased oral intake. Work on bowel motivation - prn MOM and Dulcolax in addition to starting routine Miralax. Haldol and lorazepam as needed for increased agitation and behaviors. Monitor lab. SCD for DVT prevention. Full code ordered. Care to return to Dr Salmeron at time of discharge from [facility]. 12/03/17 Wound team to evaluate bilateral lower ext today. Psychiatric consultation. Overall blood counts and electrolytes are normal. 12/04/17 Diabetic foot ulcers, osteomyelitis identified at fibular head by MRI. Surgical debridement this afternoon and cultures obtained. Will initiate therapy empirically for diabetic foot ulcers with osteo-with vancomycin and Unasyn pending culture results. Arterial Dopplers will be needed at some point to evaluate for PVD. 12/05/2017 Continue broad spectrum coverage for diabetic foot ulcers with osteo-with vancomycin and Unasyn pending culture results. Mild increase in leukocytosis- suspect due to debridement yesterday. Afebrile. Haldol and lorazepam as needed for increased agitation and behaviors. Psych following. 12/06/2017 Continue broad spectrum coverage for diabetic foot ulcers with osteo-with vancomycin and Unasyn pending culture results. Leukocytosis is improved today. Pt. remains afebrile. Haldol and lorazepam as needed for increased agitation and behaviors. Psych following. Patient continues to refuse care to his detriment. Difficult situation. Has been recommended to be placed several times. No family present today. Potassium is trending down. Will add KCL to his IVF. Continue gentle IVF as he is not eating consistently. 12/07/17 Continue current antibiotics, PICC line placed yesterday evening. Repeat CRP in a.m. ID consult in a.m. Ulcers developed after hospitalization, may be pressure ulcers rather than diabetic wounds. 12/07/17 Psych: Primary team has discontinued scheduled Haldol and ordered 2mg IV TID PRN agitation; agree with this and can scheduled if needed. Can also utilize PRN lorazepam available. Consider pre-medicating with low dose lorazepam (0.25mg IV) 20-30 minutes prior to significant cares. Will continue to follow. 12/08/17 Path report negative for osteomyelitis. Dr. Guzman recommends treating with doxycycline 100 mg twice a day for 10-14 days. As patient is refusing to eat and refusing pills periodically, IV doxy may be substituted for oral if needed. Continue to offload wounds. Wound care following. Sugars have been well controlled. Pt had a BS of 45 this morning and was given 1 /2 amp of D50 and D51/2NS w/ KCl was started at 50ml/hr as pt is not eating or drinking. His Lantus remains on hold. Haldol and lorazepam as needed for increased agitation and behaviors. Psych following. 12/09/17 Continue PO doxy for infection of foot wounds and use IV if pt refuses oral. ( Doxy initiated on 12/08. Recommend tx through 12/20/17) Dr. Ortiz recommend switching to Haldol 0.25mg IV TID as pt is refusing oral medications (including Haldol.) If patient continues to be uncooperative, could increase to 0.5mg IV TID. Marinol started yesterday. Patient has refused Marinol. Add mirtazapine 7.5mg at HS. Start B12 supplementation for low B12 level. 12/10/17 Did eat half of pizza - SO reports very picky about food. Still refusing oral medications. Resistant to therapy. Discussed with about current status. Medically doing well - do not see medical process clouding his sensorium. Decreased oral drive and refusal for oral meds and therapy slowing progression. Will continue to work with patient on oral intake/meds/therapy. Concern that underlying dementia is limiting factor. Change B12 to IM as pt refusing medication. Continue low flow IVF for hydration due to decreased oral drive.
--- NOTE | 2017-12-11 11:42 | Progress Note ---
- Date 12/11/17 Subjective: Patient is seen today in follow-up. He is awake, alert. He does allow me to examine him. He is not overly conversive. I did have to review his chart for collateral information. He continues to intermittently refuse medications and is not eating much. He is to require IV fluids to supplement by mouth intake due to decreased oral drive. Patient does deny any pain today. Objective Vital signs: Temperature 98.5 F 12/11/17 00:00 Pulse Rate 83 12/11/17 07:28 Respiratory Rate 14 12/11/17 10:11 Blood Pressure 108/67 12/11/17 07:28 Pulse Oximetry 97 12/11/17 00:00 Height/Weight/BMI: Height 1.83 m Weight 72.7 kg Body Mass Index 21.2 - Constitutional Present: no acute distress, thin, disheveled, cooperative - Routine HEENT Exam Head: Present: normocephalic, atraumatic Eye: Present: EOMI, PERRL - Routine Respiratory Exam Present: CTA bilaterally, diminished air movement. Absent: rales, rhonchi, wheezes, crackles - Routine Cardiovascular Exam Present: RRR, S1, S2, no murmur - Routine Abdominal Exam Present: soft, normoactive bowel sounds, non distended, non tender - Routine Extremities Exam Present: no edema - Routine Musculoskeletal Exam Musculoskeletal: Present: other (bilateral feet have dressings on the heels. Feet are warm, with appropriate Refill.) - Routine Skin Exam Present: dry, warm, wounds - Routine Neurological Exam Present: alert - Routine Psychiatric Exam Absent: good insight, good judgment (withdrawn. Still poorly interactive.) Results - Labs CBC & Chem 7: 12/11/17 04:31 12/11/17 04:31 Microbiology Results: Microbiology 12/04/17 17:05 Ankle, Right, Bone Surgical Culture - Final Coag negative Staphylococcus Assessment and Plan (1) Dementia Problem details: With delirium/encephalopathy Current visit: Yes Status: Acute (2) Chronic foot ulcer Problem details: With necrosis and bilateral heels, right lateral malleolus Current visit: Yes Status: Acute (3) Osteomyelitis of ankle Current visit: Yes Status: Acute Assessment and Plan: Impression Encephalopathy vs Dementia with behavioral dyscontrol Electrolytes and blood counts (other than chronic anemia) normal. Not seeing obvious source of systemic infection/inflammation. Chronic wounds to Left heel and Right lateral malleolus Constipation Dehydration Type II DM Hypothyroidism Anemia - suspect chronic disease Gen debility Functional decline at home Plan Patient remains poorly cooperative. Continue to provide IV medications for essential meds, as patient is frequently refusing oral medications. Will change IV fluids to LR at 50, as his blood sugar is trending up on D 5-1/2. Continue IV fluids to supplement poor oral intake. Mirtazapine for depression and decreased oral intake. Continue Marinol. Will add low-dose sliding scale insulin to help keep blood sugar under 200. Ortho following for wound care/osteo. Anemia is stable. Continue to follow routine lab. Patient's poor participation in care and medications as swelling his progress. He will most likely need placement when he is medically stable. DVT Prophylaxis: Lovenox GI Prophylaxis: Protonix Resuscitation Status: Full Code - Time spent with patient Time with patient PN: 25 minutes - Physician Narrative Physician: Gabriel Andre MD Narrative: Date: 12/11/17 Time: 2 Have independently interviewed & examined pt. Chart reviewed. Case discussed with CM & my [employer] TECHNICIAN. Care plan developed with my supervision; agree with above. Resting in bed when I came in. Opened eyes readily to verbal stimuli. Reports appetite decreased. Denies SOA. Closes eyes and not engaging in conversation. Nursing reports he refused meds at scheduled morning time, but did take them at lunch. Ate no breakfast, but did eat 50% lunch. Also, he wanted to get up, so nursed helped him up. Lungs: decreased, no distress CV: regular AB; soft flat ND BS present MSE: withdrawn - interacts briefly. Plan: Continue care-encourage oral intake, try to find things he likes. [facility] evaluation - persistent care issues despite correcting underlying medical etiologies. Encouraging that patient with more oral intake (still hit and miss) and was able to take oral medication with coaxing. Hospital Course Summary Disclaimer: The visit summary below is not to be considered part of the above Progress Note. Hospital Course: 12/02/17 Inpatient admission to [facility] secondary to concern for worsening encephalopathy and care failure in outpatient setting. Initiate IVF for NS for hydration, monitoring volume status. Wound consult for chronic leg wounds. Psych consult for devaluation of dementia with declining functional status and worsening behaviors. Continue with home medications. PT/OT eval and treat due to functional decline. Monitor sugars secondary to diabetes and Lantus use - hold on Lantus due to decreased oral intake. Work on bowel motivation - prn MOM and Dulcolax in addition to starting routine Miralax. Haldol and lorazepam as needed for increased agitation and behaviors. Monitor lab. SCD for DVT prevention. Full code ordered. Care to return to Dr Salmeron at time of discharge from [facility]. 12/03/17 Wound team to evaluate bilateral lower ext today. Psychiatric consultation. Overall blood counts and electrolytes are normal. 12/04/17 Diabetic foot ulcers, osteomyelitis identified at fibular head by MRI. Surgical debridement this afternoon and cultures obtained. Will initiate therapy empirically for diabetic foot ulcers with osteo-with vancomycin and Unasyn pending culture results. Arterial Dopplers will be needed at some point to evaluate for PVD. 12/05/2017 Continue broad spectrum coverage for diabetic foot ulcers with osteo-with vancomycin and Unasyn pending culture results. Mild increase in leukocytosis- suspect due to debridement yesterday. Afebrile. Haldol and lorazepam as needed for increased agitation and behaviors. Psych following. 12/06/2017 Continue broad spectrum coverage for diabetic foot ulcers with osteo-with vancomycin and Unasyn pending culture results. Leukocytosis is improved today. Pt. remains afebrile. Haldol and lorazepam as needed for increased agitation and behaviors. Psych following. Patient continues to refuse care to his detriment. Difficult situation. Has been recommended to be placed several times. No family present today. Potassium is trending down. Will add KCL to his IVF. Continue gentle IVF as he is not eating consistently. 12/07/17 Continue current antibiotics, PICC line placed yesterday evening. Repeat CRP in a.m. ID consult in a.m. Ulcers developed after hospitalization, may be pressure ulcers rather than diabetic wounds. 12/07/17 Psych: Primary team has discontinued scheduled Haldol and ordered 2mg IV TID PRN agitation; agree with this and can scheduled if needed. Can also utilize PRN lorazepam available. Consider pre-medicating with low dose lorazepam (0.25mg IV) 20-30 minutes prior to significant cares. Will continue to follow. 12/08/17 Path report negative for osteomyelitis. Dr. Guzman recommends treating with doxycycline 100 mg twice a day for 10-14 days. As patient is refusing to eat and refusing pills periodically, IV doxy may be substituted for oral if needed. Continue to offload wounds. Wound care following. Sugars have been well controlled. Pt had a BS of 45 this morning and was given 1 /2 amp of D50 and D51/2NS w/ KCl was started at 50ml/hr as pt is not eating or drinking. His Lantus remains on hold. Haldol and lorazepam as needed for increased agitation and behaviors. Psych following. 12/09/17 Continue PO doxy for infection of foot wounds and use IV if pt refuses oral. ( Doxy initiated on 12/08. Recommend tx through 12/20/17) Dr. Ortiz recommend switching to Haldol 0.25mg IV TID as pt is refusing oral medications (including Haldol.) If patient continues to be uncooperative, could increase to 0.5mg IV TID. Marinol started yesterday. Patient has refused Marinol. Add mirtazapine 7.5mg at HS. Start B12 supplementation for low B12 level. 12/10/17 Did eat half of pizza - SO reports very picky about food. Still refusing oral medications. Resistant to therapy. Discussed with about current status. Medically doing well - do not see medical process clouding his sensorium. Decreased oral drive and refusal for oral meds and therapy slowing progression. Will continue to work with patient on oral intake/meds/therapy. Concern that underlying dementia is limiting factor. Change B12 to IM as pt refusing medication. Continue low flow IVF for hydration due to decreased oral drive. 12/11/17 Patient remains poorly cooperative. Continue to provide IV medications for essential meds, as patient is frequently refusing oral medications. Will change IV fluids to LR at 50, as his blood sugar is trending up on D 5-1/2. Continue IV fluids to supplement poor oral intake. Mirtazapine for depression and decreased oral intake. Continue Marinol. Will add low-dose sliding scale insulin to help keep blood sugar under 200. Ortho following for wound care/osteo. Anemia is stable. Continue to follow routine lab. Patient's poor participation in care and medications as swelling his progress. He will most likely need placement when he is medically stable.
[2017-12-11] MEDS: LR 1,000 ML IV SCH (13:00)
[2017-12-11] MEDS: MIRTAZAPINE 15 MG TABLET PO SCH (20:54)
[2017-12-12] MEDS: DOXYCYCLINE 100 MG in NS 250ml 250 ML IV PRN (01:30)
[2017-12-12] MEDS: NS FLUSH BAG 500ml IV PRN ×2 (06:03→13:43)
[2017-12-12] MEDS: PANTOPRAZOLE 20 MG TABLET PO SCH ×2 (06:16→16:26)
[2017-12-12] MEDS: LEVOTHYROXINE 100 MCG TABLET PO SCH (06:16)
[2017-12-12] MEDS: SALINE FLUSH 10ml SYRINGE IVF PRN ×3 (06:16→16:26)
[2017-12-12] MEDS: CYANOCOBALAMIN (B-12) 1,000mcg/ml INJECTION IM SCH (08:30)
[2017-12-12] MEDS: ENOXAPARIN 40 MG/0.4 ML INJECTION SQ SCH (08:30)
[2017-12-12] MEDS: DRONABINOL 2.5 MG CAPSULE PO SCH ×3 (08:30→23:00)
[2017-12-12] MEDS: HALOPERIDOL 5 MG/ML INJECTION IVP SCH ×3 (08:31→22:45)
[2017-12-12] MEDS: SENNA + DOCUSATE TABLET PO SCH ×3 (08:31→23:00)
[2017-12-12] MEDS: POLYETHYL GLYCOL 3350 17gm PACKET PO SCH (08:31)
[2017-12-12] MEDS: LR 1,000 ML IV SCH (09:44)
[2017-12-12] MEDS: INSULIN ASPART 100unit/ml INJECTION SQ PRN (10:23)
[2017-12-12] MEDS: DOXYCYCLINE 100 MG in NS 250ml 250 ML IV SCH (13:41)
--- NOTE | 2017-12-12 15:08 | Progress Note ---
- Date 12/12/17 Subjective: Patient seen today sitting up in the chair eating chocolate ice cream. He asks if I would like something to eat. He reports he feels well. He denies any pain , specifically any chest pain or pain in his heels. No SOA, n/v. He can tell me it is 2018. He thought he was in [place] and was surprised to hear he is in [place]. He knows he lives in [place]. Objective Vital signs: Temperature 97.8 F 12/12/17 08:00 Pulse Rate 88 12/12/17 08:00 Respiratory Rate 18 12/12/17 08:00 Blood Pressure 115/66 12/12/17 08:00 Pulse Oximetry 90 12/12/17 08:00 Height/Weight/BMI: Height 1.83 m Weight 72.1 kg Body Mass Index 21.2 - Constitutional Present: no acute distress, well nourished, well developed - Routine HEENT Exam Head: Present: normocephalic, atraumatic - Routine Respiratory Exam Present: CTA bilaterally. Absent: wheezes - Routine Cardiovascular Exam Present: RRR, no murmur - Routine Abdominal Exam Present: soft, non distended, non tender - Routine Extremities Exam Present: no edema, normal capillary refill Comments: wounds are covered on heels/ankle - Routine Skin Exam Present: dry, warm - Routine Neurological Exam Present: alert, normal speech - Routine Lymphatic Exam Lymphatic: Absent: adenopathy - Routine Psychiatric Exam Present: normal affect, cooperative Results - Labs CBC & Chem 7: 12/12/17 05:02 12/12/17 05:02 Microbiology Results: Microbiology 12/04/17 17:05 Ankle, Right, Bone Surgical Culture - Final Coag negative Staphylococcus Assessment and Plan (1) Chronic foot ulcer Problem details: With necrosis and bilateral heels, right lateral malleolus Current visit: Yes Status: Acute (2) Dementia Problem details: With delirium/encephalopathy Current visit: Yes Status: Acute (3) Osteomyelitis of ankle Current visit: Yes Status: Acute Assessment and Plan: Impression Encephalopathy vs Dementia with behavioral dyscontrol Electrolytes and blood counts (other than chronic anemia) normal. Not seeing obvious source of systemic infection/inflammation. Chronic wounds to Left heel and Right lateral malleolus Constipation Dehydration Type II DM Hypothyroidism Anemia - suspect chronic disease Gen debility Functional decline at home Plan Patient has been more cooperative. He has been eating better and willing to sit up in chair. DC IV fluids. Continue Mirtazapine for depression and decreased oral intake. Continue Marinol. Continue low-dose sliding scale insulin to help keep blood sugar under 200. Ortho following for wound care/osteo. Continues on doxycycline. Not accepted to [facility] due to wound care needs. Dr Andre to discuss further DC plans with family. DVT Prophylaxis: Lovenox Resuscitation Status: Full Code - Time spent with patient Time with patient PN: 25 minutes - Physician Narrative Physician: Gabriel Andre MD Narrative: Date: 12/12/17 Time: 1605 Have independently interviewed & examined pt. Chart reviewed. Case discussed with CM, Pt's SO, and my PA. Care plan d/w my supervision; agree with above. Sitting up in chair this afternoon-sleeping. Has been eating better. Taking oral medications. Lab and vitals stable. Lungs: decreased, no distress CV: regular AB: soft nt/nd Plan: Not accepted to [facility] for care. SO not wanting NH; planning for discharge to home with home health. Encouraging that oral intake increasing. Will stop IVF. Possible transition to oral Seroquel (? low dose of 25 to 50mg at night). Continue IV antibiotics. Continue wound care. Encourage movement to help strength. Lab stable-can hold on draw for tomorrow. Discussed with patient' s SO about discharge-she worries without extra help of home health over the weekend, his overall status will decline. This seems reasonable. Hospital Course Summary Disclaimer: The visit summary below is not to be considered part of the above Progress Note. Hospital Course: 12/02/17 Inpatient admission to [facility] secondary to concern for worsening encephalopathy and care failure in outpatient setting. Initiate IVF for NS for hydration, monitoring volume status. Wound consult for chronic leg wounds. Psych consult for devaluation of dementia with declining functional status and worsening behaviors. Continue with home medications. PT/OT eval and treat due to functional decline. Monitor sugars secondary to diabetes and Lantus use - hold on Lantus due to decreased oral intake. Work on bowel motivation - prn MOM and Dulcolax in addition to starting routine Miralax. Haldol and lorazepam as needed for increased agitation and behaviors. Monitor lab. SCD for DVT prevention. Full code ordered. Care to return to Dr Salmeron at time of discharge from [facility]. 12/03/17 Wound team to evaluate bilateral lower ext today. Psychiatric consultation. Overall blood counts and electrolytes are normal. 12/04/17 Diabetic foot ulcers, osteomyelitis identified at fibular head by MRI. Surgical debridement this afternoon and cultures obtained. Will initiate therapy empirically for diabetic foot ulcers with osteo-with vancomycin and Unasyn pending culture results. Arterial Dopplers will be needed at some point to evaluate for PVD. 12/05/2017 Continue broad spectrum coverage for diabetic foot ulcers with osteo-with vancomycin and Unasyn pending culture results. Mild increase in leukocytosis- suspect due to debridement yesterday. Afebrile. Haldol and lorazepam as needed for increased agitation and behaviors. Psych following. 12/06/2017 Continue broad spectrum coverage for diabetic foot ulcers with osteo-with vancomycin and Unasyn pending culture results. Leukocytosis is improved today. Pt. remains afebrile. Haldol and lorazepam as needed for increased agitation and behaviors. Psych following. Patient continues to refuse care to his detriment. Difficult situation. Has been recommended to be placed several times. No family present today. Potassium is trending down. Will add KCL to his IVF. Continue gentle IVF as he is not eating consistently. 12/07/17 Continue current antibiotics, PICC line placed yesterday evening. Repeat CRP in a.m. ID consult in a.m. Ulcers developed after hospitalization, may be pressure ulcers rather than diabetic wounds. 12/07/17 Psych: Primary team has discontinued scheduled Haldol and ordered 2mg IV TID PRN agitation; agree with this and can scheduled if needed. Can also utilize PRN lorazepam available. Consider pre-medicating with low dose lorazepam (0.25mg IV) 20-30 minutes prior to significant cares. Will continue to follow. 12/08/17 Path report negative for osteomyelitis. Dr. Guzman recommends treating with doxycycline 100 mg twice a day for 10-14 days. As patient is refusing to eat and refusing pills periodically, IV doxy may be substituted for oral if needed. Continue to offload wounds. Wound care following. Sugars have been well controlled. Pt had a BS of 45 this morning and was given 1 /2 amp of D50 and D51/2NS w/ KCl was started at 50ml/hr as pt is not eating or drinking. His Lantus remains on hold. Haldol and lorazepam as needed for increased agitation and behaviors. Psych following. 12/09/17 Continue PO doxy for infection of foot wounds and use IV if pt refuses oral. ( Doxy initiated on 12/08. Recommend tx through 12/20/17) Dr. Ortiz recommend switching to Haldol 0.25mg IV TID as pt is refusing oral medications (including Haldol.) If patient continues to be uncooperative, could increase to 0.5mg IV TID. Marinol started yesterday. Patient has refused Marinol. Add mirtazapine 7.5mg at HS. Start B12 supplementation for low B12 level. 12/10/17 Did eat half of pizza - SO reports very picky about food. Still refusing oral medications. Resistant to therapy. Discussed with about current status. Medically doing well - do not see medical process clouding his sensorium. Decreased oral drive and refusal for oral meds and therapy slowing progression. Will continue to work with patient on oral intake/meds/therapy. Concern that underlying dementia is limiting factor. Change B12 to IM as pt refusing medication. Continue low flow IVF for hydration due to decreased oral drive. 12/11/17 Patient remains poorly cooperative. Continue to provide IV medications for essential meds, as patient is frequently refusing oral medications. Will change IV fluids to LR at 50, as his blood sugar is trending up on D 5-1/2. Continue IV fluids to supplement poor oral intake. Mirtazapine for depression and decreased oral intake. Continue Marinol. Will add low-dose sliding scale insulin to help keep blood sugar under 200. Anemia is stable. Continue to follow routine lab. Patient's poor participation in care and medications as swelling his progress. He will most likely need placement when he is medically stable. 12/12/17 Patient has been more cooperative. He has been eating better and willing to sit up in chair. DC IV fluids. Continue Mirtazapine for depression and decreased oral intake. Continue Marinol. Ortho following for wound care/osteo. Continues on doxycycline IV for coverage . Not accepted to [facility] due to wound care needs. Arrangements made for Home Health at time of discharge.
[2017-12-12] MEDS: MIRTAZAPINE 15 MG TABLET PO SCH ×2 (22:44→23:01)
[2017-12-13] MEDS: DOXYCYCLINE 100 MG in NS 250ml 250 ML IV SCH ×2 (02:08→13:57)
[2017-12-13] MEDS: PANTOPRAZOLE 20 MG TABLET PO SCH ×2 (05:44→17:52)
[2017-12-13] MEDS: LEVOTHYROXINE 100 MCG TABLET PO SCH (05:44)
[2017-12-13] MEDS: PANTOPRAZOLE 40 MG INJECTION IVP PRN (06:17)
[2017-12-13] MEDS: DRONABINOL 2.5 MG CAPSULE PO SCH ×2 (09:03→20:26)
[2017-12-13] MEDS: HALOPERIDOL 5 MG/ML INJECTION IVP SCH (09:03)
[2017-12-13] MEDS: SENNA + DOCUSATE TABLET PO SCH ×2 (09:03→20:26)
[2017-12-13] MEDS: ENOXAPARIN 40 MG/0.4 ML INJECTION SQ SCH (09:04)
[2017-12-13] MEDS: POLYETHYL GLYCOL 3350 17gm PACKET PO SCH (09:04)
[2017-12-13] MEDS: CYANOCOBALAMIN (B-12) 1,000mcg/ml INJECTION IM SCH (09:05)
--- NOTE | 2017-12-13 09:53 | Progress Note ---
- Date 12/13/17 Subjective: Chacho was sleeping but easily aroused. He was in no acute distress. His answers consisted of one word responses, either "yes" or "good". He denied any pain, SOA, nausea, or fevers. He has not yet eaten breakfast. He refused most of his dinner last night. Objective Vital signs: Temperature 97.1 F 12/13/17 00:00 Pulse Rate 84 12/13/17 00:00 Respiratory Rate 20 12/13/17 00:00 Blood Pressure 105/61 12/13/17 00:00 Pulse Oximetry 97 12/13/17 00:00 Height/Weight/BMI: Height 1.83 m Weight 71.8 kg Body Mass Index 21.2 - Constitutional Present: no acute distress, well nourished, well developed - Routine HEENT Exam Head: Present: normocephalic - Routine Respiratory Exam Present: CTA bilaterally - Routine Cardiovascular Exam Present: RRR, S1, S2 - Routine Abdominal Exam Present: soft, normoactive bowel sounds, non distended, non tender - Routine Extremities Exam Present: no edema - Routine Skin Exam Present: dry, warm, wounds (dressings to both feet/heels) - Routine Neurological Exam Absent: alert (drowsy) - Routine Psychiatric Exam Present: cooperative Results - Labs CBC & Chem 7: 12/12/17 05:02 12/12/17 05:02 Microbiology Results: Microbiology 12/04/17 17:05 Ankle, Right, Bone Surgical Culture - Final Coag negative Staphylococcus Assessment and Plan (1) Dementia Problem details: With delirium/encephalopathy Current visit: Yes Status: Acute (2) Chronic foot ulcer Problem details: With necrosis and bilateral heels, right lateral malleolus Current visit: Yes Status: Acute (3) Osteomyelitis of ankle Current visit: Yes Status: Acute Assessment and Plan: Impression Encephalopathy vs Dementia with behavioral dyscontrol Electrolytes and blood counts (other than chronic anemia) normal. Not seeing obvious source of systemic infection/inflammation. Chronic wounds to Left heel and Right lateral malleolus Constipation Dehydration Type II DM Hypothyroidism Anemia - suspect chronic disease Gen debility Functional decline at home Plan Oral intake remains variable. IVF dc'd yesterday - monitor intake, labs, observe for dehydration. Continue Mirtazapine for depression and decreased oral intake. Continue Marinol. S/P bedside wound debridement 12/11, recommends continue Hydrofera blue, change q3days. Offload heals while in bed. WBAT in postop shoes. Considering wound vac for left heel wound. Path report negative for osteomyelitis. Culture coag neg staph. Dr. Guzman recommends doxycycline for 10-14 days - changed to IV b/c he was refusing oral. Doxy was started on 12/08/17. DVT Prophylaxis: Lovenox GI Prophylaxis: Protonix Resuscitation Status: Full Code - Time spent with patient Time with patient PN: 25 minutes - Physician Narrative Physician: Gabriel Andre MD Narrative: Date: 12/13/17 Time: 3 Have independently interviewed and examined pt. Chart reviewed. Case discussed with my [employer]ER. Care plan developed with my supervision; agree with above. Resting in bed this afternoon-awakens readily to verbal stimuli. Answers questions mainly with yes/no. Lunch in front of him, little of the fish eaten. States 'did not like.' No ab pain or nausea. Breathing well. Lungs: decreased, no distress CV: regular AB: soft nt EXT: thin Plan: Discussed with Dr Wright-will stop home Seroquel and use Haldol in it's place. Will attempt oral Haldol, but keep IV back up if pt refusing medication. Encourage oral intake-try to find foods that are appealing to him. Continue IV antibiotic. Hospital Course Summary Disclaimer: The visit summary below is not to be considered part of the above Progress Note. Hospital Course: 12/02/17 [place]patient [place] [facility] [place] concern for worsening encephalopathy and care failure in outpatient setting. Initiate IVF for NS for hydration, monitoring volume status. Wound consult for chronic leg wounds. Psych consult for devaluation of dementia with declining functional status and worsening behaviors. Continue with home medications. PT/OT eval and treat due to functional decline. Monitor sugars secondary to diabetes and Lantus use - hold on Lantus due to decreased oral intake. Work on bowel motivation - prn MOM and Dulcolax in addition to starting routine Miralax. Haldol and lorazepam as needed for increased agitation and behaviors. Monitor lab. SCD for DVT prevention. Full code ordered. Care to return to Dr Salmeron at time of discharge from [facility] 12/03/17 Wound team to evaluate bilateral lower ext today. Psychiatric consultation. Overall blood counts and electrolytes are normal. 12/04/17 Diabetic foot ulcers, osteomyelitis identified at fibular head by MRI. Surgical debridement this afternoon and cultures obtained. Will initiate therapy empirically for diabetic foot ulcers with osteo-with vancomycin and Unasyn pending culture results. Arterial Dopplers will be needed at some point to evaluate for PVD. 12/05/2017 Continue broad spectrum coverage for diabetic foot ulcers with osteo-with vancomycin and Unasyn pending culture results. Mild increase in leukocytosis- suspect due to debridement yesterday. Afebrile. Haldol and lorazepam as needed for increased agitation and behaviors. Psych following. 12/06/2017 Continue broad spectrum coverage for diabetic foot ulcers with osteo-with vancomycin and Unasyn pending culture results. Leukocytosis is improved today. Pt. remains afebrile. Haldol and lorazepam as needed for increased agitation and behaviors. Psych following. Patient continues to refuse care to his detriment. Difficult situation. Has been recommended to be placed several times. No family present today. Potassium is trending down. Will add KCL to his IVF. Continue gentle IVF as he is not eating consistently. 12/07/17 Continue current antibiotics, PICC line placed yesterday evening. Repeat CRP in a.m. ID consult in a.m. Ulcers developed after hospitalization, may be pressure ulcers rather than diabetic wounds. 12/07/17 Psych: Primary team has discontinued scheduled Haldol and ordered 2mg IV TID PRN agitation; agree with this and can scheduled if needed. Can also utilize PRN lorazepam available. Consider pre-medicating with low dose lorazepam (0.25mg IV) 20-30 minutes prior to significant cares. Will continue to follow. 12/08/17 Path report negative for osteomyelitis. Dr. Guzman recommends treating with doxycycline 100 mg twice a day for 10-14 days. As patient is refusing to eat and refusing pills periodically, IV doxy may be substituted for oral if needed. Continue to offload wounds. Wound care following. Sugars have been well controlled. Pt had a BS of 45 this morning and was given 1 /2 amp of D50 and D51/2NS w/ KCl was started at 50ml/hr as pt is not eating or drinking. His Lantus remains on hold. Haldol and lorazepam as needed for increased agitation and behaviors. Psych following. 12/09/17 Continue PO doxy for infection of foot wounds and use IV if pt refuses oral. ( Doxy initiated on 12/08. Recommend tx through 12/20/17) Dr. Ortiz recommend switching to Haldol 0.25mg IV TID as pt is refusing oral medications (including Haldol.) If patient continues to be uncooperative, could increase to 0.5mg IV TID. Marinol started yesterday. Patient has refused Marinol. Add mirtazapine 7.5mg at HS. Start B12 supplementation for low B12 level. 12/10/17 Did eat half of pizza - SO reports very picky about food. Still refusing oral medications. Resistant to therapy. Discussed with about current status. Medically doing well - do not see medical process clouding his sensorium. Decreased oral drive and refusal for oral meds and therapy slowing progression. Will continue to work with patient on oral intake/meds/therapy. Concern that underlying dementia is limiting factor. Change B12 to IM as pt refusing medication. Continue low flow IVF for hydration due to decreased oral drive. 12/11/17 Patient remains poorly cooperative. Continue to provide IV medications for essential meds, as patient is frequently refusing oral medications. Will change IV fluids to LR at 50, as his blood sugar is trending up on D 5-07/01. Continue IV fluids to supplement poor oral intake. Mirtazapine for depression and decreased oral intake. Continue Marinol. Will add low-dose sliding scale insulin to help keep blood sugar under 200. Anemia is stable. Continue to follow routine lab. Patient's poor participation in care and medications as swelling his progress. He will most likely need placement when he is medically stable. 12/12/17 Patient has been more cooperative. He has been eating better and willing to sit up in chair. DC IV fluids. Continue Mirtazapine for depression and decreased oral intake. Continue Marinol. Ortho following for wound care/osteo. Continues on doxycycline IV for coverage . Not accepted to [facility] due to wound care needs. Arrangements made for Home Health at time of discharge. 12/13/17 Oral intake remains variable. IVF dc'd yesterday - monitor intake, labs, observe for dehydration. Continue Mirtazapine for depression and decreased oral intake. Continue Marinol. Will use Haldol in place of his home Seroquel. Change IV 0.25 to oral 0.5 TID - - keep IV backup incase patient refuses oral Haldol. S/P bedside wound debridement 12/11, recommends continue Hydrofera blue, change q3days. Offload heals while in bed. WBAT in postop shoes. Considering wound vac for left heel wound. Path report negative for osteomyelitis. Culture coag neg staph. Dr. Guzman recommends doxycycline for 10-14 days - changed to IV b/c he was refusing oral.
[2017-12-13] MEDS ORDERED: HALOPERIDOL 5 MG/ML INJECTION IVP PRN (14:04)
[2017-12-13] MEDS: INSULIN ASPART 100unit/ml INJECTION SQ PRN (15:45)
[2017-12-13] MEDS: HALOPERIDOL 0.5 MG TABLET PO SCH ×2 (15:46→20:26)
[2017-12-13] MEDS: MIRTAZAPINE 15 MG TABLET PO SCH (20:26)
[2017-12-14] MEDS: DOXYCYCLINE 100 MG in NS 250ml 250 ML IV SCH ×2 (00:32→14:07)
[2017-12-14] MEDS: PANTOPRAZOLE 20 MG TABLET PO SCH ×2 (05:56→17:00)
[2017-12-14] MEDS: LEVOTHYROXINE 100 MCG TABLET PO SCH (05:56)
[2017-12-14] MEDS: SENNA + DOCUSATE TABLET PO SCH ×2 (08:03→21:16)
[2017-12-14] MEDS: DRONABINOL 2.5 MG CAPSULE PO SCH ×2 (08:03→21:16)
[2017-12-14] MEDS: CYANOCOBALAMIN (B-12) 1,000mcg/ml INJECTION IM SCH (08:04)
[2017-12-14] MEDS: HALOPERIDOL 0.5 MG TABLET PO SCH ×3 (08:04→21:16)
[2017-12-14] MEDS: POLYETHYL GLYCOL 3350 17gm PACKET PO SCH (08:04)
[2017-12-14] MEDS: ENOXAPARIN 40 MG/0.4 ML INJECTION SQ SCH (08:04)
[2017-12-14] MEDS: INSULIN ASPART 100unit/ml INJECTION SQ PRN ×2 (11:07→21:14)
--- NOTE | 2017-12-14 13:29 | Progress Note ---
- Date 12/14/17 Subjective: Patient seen lying in bed. He easily wakes up to my greeting. He says he is "good" and asks how I am doing. He denies CP, SOA, any pain, n/v. States he is eating. Nurse reports he is more alert today and was up to the chair this morning for breakfast. Objective Vital signs: Temperature 98.3 F 12/14/17 07:22 Pulse Rate 84 12/14/17 07:22 Respiratory Rate 16 12/14/17 07:22 Blood Pressure 128/74 12/14/17 07:22 Pulse Oximetry 98 12/14/17 07:22 Height/Weight/BMI: Height 1.83 m Weight 71.6 kg Body Mass Index 21.2 - Constitutional Present: no acute distress, well nourished, well developed - Routine HEENT Exam Head: Present: normocephalic, atraumatic - Routine Respiratory Exam Present: CTA bilaterally. Absent: wheezes - Routine Cardiovascular Exam Present: RRR, no murmur - Routine Abdominal Exam Present: soft, non distended, non tender - Routine Extremities Exam Present: no edema, normal capillary refill Comments: dressing has come off of L foot - Routine Skin Exam Present: dry, warm - Routine Neurological Exam Present: alert - Routine Lymphatic Exam Lymphatic: Absent: adenopathy - Routine Psychiatric Exam Present: normal affect, cooperative Results - Labs CBC & Chem 7: 12/14/17 04:51 12/14/17 04:51 Microbiology Results: Microbiology 12/04/17 17:05 Ankle, Right, Bone Surgical Culture - Final Coag negative Staphylococcus Assessment and Plan (1) Dementia Problem details: With delirium/encephalopathy Current visit: Yes Status: Acute (2) Chronic foot ulcer Problem details: With necrosis and bilateral heels, right lateral malleolus Current visit: Yes Status: Acute (3) Osteomyelitis of ankle Current visit: Yes Status: Acute Assessment and Plan: Impression Encephalopathy vs Dementia with behavioral dyscontrol Electrolytes and blood counts (other than chronic anemia) normal. Not seeing obvious source of systemic infection/inflammation. Chronic wounds to Left heel and Right lateral malleolus Constipation Dehydration Type II DM Hypothyroidism Anemia - suspect chronic disease Gen debility Functional decline at home Plan Labs and vitals stable. Eating better. BS's increasing. Has required SSI past few days. Was previously on 17 U Lantus q hs. Will restart Lantus at 10U hs. Increase mirtazapine to 15mg as this was listed as his dose on his home meds. Continue Marinol. S/P bedside wound debridement 12/11, recommends continue Hydrofera blue, change q3days. Offload heals while in bed. WBAT in postop shoes. Considering wound vac for left heel wound. Path report negative for osteomyelitis. Culture coag neg staph. Dr. Guzman recommends doxycycline for 10-14 days - changed to IV b/c he was refusing oral. Doxy was started on 12/08/17. Will need to convert to po B12 when completes 7 days of IM. DVT Prophylaxis: Lovenox Resuscitation Status: Full Code - Time spent with patient Time with patient PN: 25 minutes - Physician Narrative Physician: Gabriel Andre MD Narrative: Date: 12/14/17 Time: 2005 Have independently interviewed and examined pt. Chart reviewed. Case discussed with my PA. Care plan developed with my supervision; agree with above. Resting in bed this evening. Awakens to verbal stimuli. Non verbal, but nods yes /no to questions. Eating more today. Has been taking medications. Nursing not reporting aggressive behavior. Lab stable. Lungs: decreased, no distress CV: regular AB: soft nt/nd Plan: Continue antibiotics. Lantus started at 10 - monitor for hypoglycemia. Looking at home with home health in near future. Hospital Course Summary Disclaimer: The visit summary below is not to be considered part of the above Progress Note. Hospital Course: 12/02/17 Inpatient admission to [facility] [place] to concern for worsening encephalopathy and care failure in outpatient setting. Initiate IVF for NS for hydration, monitoring volume status. Wound consult for chronic leg wounds. Psych consult for devaluation of dementia with declining functional status and worsening behaviors. Continue with home medications. PT/OT eval and treat due to functional decline. Monitor sugars secondary to diabetes and Lantus use - hold on Lantus due to decreased oral intake. Work on bowel motivation - prn MOM and Dulcolax in addition to starting routine Miralax. Haldol and lorazepam as needed for increased agitation and behaviors. Monitor lab. SCD for DVT prevention. Full code ordered. Care to return to Dr Salmeron at time of discharge from [facility]. 12/03/17 Wound team to evaluate bilateral lower ext today. Psychiatric consultation. Overall blood counts and electrolytes are normal. 12/04/17 Diabetic foot ulcers, osteomyelitis identified at fibular head by MRI. Surgical debridement this afternoon and cultures obtained. Will initiate therapy empirically for diabetic foot ulcers with osteo-with vancomycin and Unasyn pending culture results. Arterial Dopplers will be needed at some point to evaluate for PVD. 12/05/2017 Continue broad spectrum coverage for diabetic foot ulcers with osteo-with vancomycin and Unasyn pending culture results. Mild increase in leukocytosis- suspect due to debridement yesterday. Afebrile. Haldol and lorazepam as needed for increased agitation and behaviors. Psych following. 12/06/2017 Continue broad spectrum coverage for diabetic foot ulcers with osteo-with vancomycin and Unasyn pending culture results. Leukocytosis is improved today. Pt. remains afebrile. Haldol and lorazepam as needed for increased agitation and behaviors. Psych following. Patient continues to refuse care to his detriment. Difficult situation. Has been recommended to be placed several times. No family present today. Potassium is trending down. Will add KCL to his IVF. Continue gentle IVF as he is not eating consistently. 12/07/17 Continue current antibiotics, PICC line placed yesterday evening. Repeat CRP in a.m. ID consult in a.m. Ulcers developed after hospitalization, may be pressure ulcers rather than diabetic wounds. 12/07/17 Psych: Primary team has discontinued scheduled Haldol and ordered 2mg IV TID PRN agitation; agree with this and can scheduled if needed. Can also utilize PRN lorazepam available. Consider pre-medicating with low dose lorazepam (0.25mg IV) 20-30 minutes prior to significant cares. Will continue to follow. 12/08/17 Path report negative for osteomyelitis. Dr. Guzman recommends treating with doxycycline 100 mg twice a day for 10-14 days. As patient is refusing to eat and refusing pills periodically, IV doxy may be substituted for oral if needed. Continue to offload wounds. Wound care following. Sugars have been well controlled. Pt had a BS of 45 this morning and was given 1 /2 amp of D50 and D51/2NS w/ KCl was started at 50ml/hr as pt is not eating or drinking. His Lantus remains on hold. Haldol and lorazepam as needed for increased agitation and behaviors. Psych following. 12/09/17 Continue PO doxy for infection of foot wounds and use IV if pt refuses oral. ( Doxy initiated on 12/08. Recommend tx through 12/20/17) Dr. Ortiz recommend switching to Haldol 0.25mg IV TID as pt is refusing oral medications (including Haldol.) If patient continues to be uncooperative, could increase to 0.5mg IV TID. Marinol started yesterday. Patient has refused Marinol. Add mirtazapine 7.5mg at HS. Start B12 supplementation for low B12 level. 12/10/17 Did eat half of pizza - SO reports very picky about food. Still refusing oral medications. Resistant to therapy. Discussed with about current status. Medically doing well - do not see medical process clouding his sensorium. Decreased oral drive and refusal for oral meds and therapy slowing progression. Will continue to work with patient on oral intake/meds/therapy. Concern that underlying dementia is limiting factor. Change B12 to IM as pt refusing medication. Continue low flow IVF for hydration due to decreased oral drive. 12/11/17 Patient remains poorly cooperative. Continue to provide IV medications for essential meds, as patient is frequently refusing oral medications. Will change IV fluids to LR at 50, as his blood sugar is trending up on D 5-12. Continue IV fluids to supplement poor oral intake. Mirtazapine for depression and decreased oral intake. Continue Marinol. Will add low-dose sliding scale insulin to help keep blood sugar under 200. Anemia is stable. Continue to follow routine lab. Patient's poor participation in care and medications as swelling his progress. He will most likely need placement when he is medically stable. 12/12/17 Patient has been more cooperative. He has been eating better and willing to sit up in chair. DC IV fluids. Continue Mirtazapine for depression and decreased oral intake. Continue Marinol. Ortho following for wound care/osteo. Continues on doxycycline IV for coverage . Not accepted to [facility] due to wound care needs. Arrangements made for Home Health at time of discharge. 12/13/17 Oral intake remains variable. IVF dc'd yesterday - monitor intake, labs, observe for dehydration. Continue Mirtazapine for depression and decreased oral intake. Continue Marinol. Will use Haldol in place of his home Seroquel. Change IV 0.25 to oral 0.5 TID - - keep IV backup incase patient refuses oral Haldol. S/P bedside wound debridement 12/11, recommends continue Hydrofera blue, change q3days. Offload heals while in bed. WBAT in postop shoes. Considering wound vac for left heel wound. Path report negative for osteomyelitis. Culture coag neg staph. Dr. Guzman recommends doxycycline for 10-14 days - changed to IV b/c he was refusing oral. Doxy was started on 12/08/17. 12/14/17 Labs and vitals stable. Eating better. BS's increasing. Has required SSI past few days. Was previously on 17 U Lantus q hs. Will restart Lantus at 10U hs. Increase mirtazapine to 15mg as this was listed as his dose on his home meds. Continue Marinol. Will need to convert to po B12 when completes 7 days of IM.
[2017-12-14] MEDS ORDERED: INSULIN GLARGINE 100unit/ml INJECTION SQ SCH (21:00)
[2017-12-14] MEDS ORDERED: MIRTAZAPINE 15 MG TABLET PO SCH (21:00)
[2017-12-15 00:03] VITALS: RESP 18
[2017-12-15] MEDS: DOXYCYCLINE 100 MG in NS 250ml 250 ML IV SCH ×2 (02:53→13:03)
[2017-12-15] MEDS: LEVOTHYROXINE 100 MCG TABLET PO SCH ×2 (07:11→09:55)
[2017-12-15] MEDS: PANTOPRAZOLE 20 MG TABLET PO SCH (07:11)
[2017-12-15] MEDS: PANTOPRAZOLE 40 MG INJECTION IVP PRN ×2 (07:12→09:52)
--- NOTE | 2017-12-15 08:09 | Orthopedic Progress Note ---
Date: Date: 12/15/17 Time: 805 Subjective/Severity of Illness: No complaints or concerns. Denies any pain with his feet. Exam - Constitutional Vital Signs: Temperature 97.0 F 12/15/17 00:02 Pulse Rate 80 12/15/17 00:02 Respiratory Rate 18 12/15/17 00:02 Blood Pressure 105/65 12/15/17 00:02 Pulse Oximetry 97 12/15/17 00:02 General: cooperative, no acute distress Nutritional Appearance: average body habitus Orientation: alert - RLE Neurological: no deficits Vascular: dorsalis pedis pulse within normal limits Right Lower Extremity comments: Right heel and lateral malleolus wound with yellow slough tissue, debride 100% with sharp curette down to granulation tissue - LLE Neurological: no deficits Vascular: dorsalis pedis pulse within normal limits Left Lower Extremity Comments: Left heel with yellow slough/fibrous tissue and central eschar, debride 50% with sharp curette down to granulation tissue. central eschar partial debride. - Respiratory Respiratory Exam: non-labored - Cardiac Cardiovascular exam: pedal pulses intact - Labs Result Diagrams: 12/15/17 04:30 12/15/17 04:30 Abnormal lab results 12/15/17 12/15/17 Range/Units 04:30 04:30 Hgb 12.0 L D (13.5-17.5) GM/DL Hct 38.2 L D (41-53) % MPV 8.6 L (9.4-12.4) UM3 Eos % (Auto) 4.1 H (0-4) % Glucose 143 H (75-110) MG/DL Calculated Osmolality 282 H (261-280) MOSM/KG H & H 12/03/17 12/04/17 12/05/17 Range/Units 04:19 04:20 04:37 Hgb 9.4 L D 9.4 L 10.8 L D (13.5-17.5) GM/DL Hct 29.5 L 29.4 L 32.9 L D (41-53) % 12/06/17 12/07/17 12/08/17 Range/Units 07:49 04:48 03:45 Hgb 10.6 L 9.3 L D Cancelled (13.5-17.5) GM/DL Hct 32.3 L 28.8 L Cancelled (41-53) % 12/08/17 12/10/17 12/11/17 Range/Units 06:00 05:12 04:31 Hgb 10.6 L D 11.5 L 10.6 L (13.5-17.5) GM/DL Hct 32.0 L D 35.2 L 32.4 L (41-53) % 12/12/17 12/14/17 12/15/17 Range/Units 05:02 04:51 04:30 Hgb 10.3 L 10.8 L 12.0 L D (13.5-17.5) GM/DL Hct 32.4 L 34.2 L 38.2 L D (41-53) % Orthopedic Assessment and Plan (1) Chronic foot ulcer Status: Acute Qualifiers: Laterality: unspecified laterality Non-pressure ulcer stage: with fat layer exposed Qualified Code(s): L97.502 - Non-pressure chronic ulcer of other part of unspecified foot with fat layer exposed Problem Details: With necrosis and bilateral heels, right lateral malleolus Assessment and Plan: Wound debridement in OR by Dr. No on 12/04/17 Wounds improving, will continue Hydrofera blue, change q3days. Anticipated discharge home today with follow up scheduled at [place] [facility] and home health. Path report negative for osteomyelitis. Culture coag neg staph. Dr. Guzman managing antibiotics. Pt encouraged to use the pillows and foam to keep pressure off the sores. Hospitalist managing medically. Patient may be WBAT in post op shoes. Thank you for consultation. Hospital Course Summary Disclaimer: The visit summary below is not to be considered part of the above Progress Note. Hospital Course: 12/02/17 Inpatient admission to [facility] [place] to concern for worsening encephalopathy and care failure in outpatient setting. Initiate IVF for NS for hydration, monitoring volume status. Wound consult for chronic leg wounds. Psych consult for devaluation of dementia with declining functional status and worsening behaviors. Continue with home medications. PT/OT eval and treat due to functional decline. Monitor sugars secondary to diabetes and Lantus use - hold on Lantus due to decreased oral intake. Work on bowel motivation - prn MOM and Dulcolax in addition to starting routine Miralax. Haldol and lorazepam as needed for increased agitation and behaviors. Monitor lab. SCD for DVT prevention. Full code ordered. Care to return to Dr Salmeron at time of discharge from [facility] [place]. 12/03/17 Wound team to evaluate bilateral lower ext today. Psychiatric consultation. Overall blood counts and electrolytes are normal. 12/04/17 Diabetic foot ulcers, osteomyelitis identified at fibular head by MRI. Surgical debridement this afternoon and cultures obtained. Will initiate therapy empirically for diabetic foot ulcers with osteo-with vancomycin and Unasyn pending culture results. Arterial Dopplers will be needed at some point to evaluate for PVD. 12/05/2017 Continue broad spectrum coverage for diabetic foot ulcers with osteo-with vancomycin and Unasyn pending culture results. Mild increase in leukocytosis- suspect due to debridement yesterday. Afebrile. Haldol and lorazepam as needed for increased agitation and behaviors. Psych following. 12/06/2017 Continue broad spectrum coverage for diabetic foot ulcers with osteo-with vancomycin and Unasyn pending culture results. Leukocytosis is improved today. Pt. remains afebrile. Haldol and lorazepam as needed for increased agitation and behaviors. Psych following. Patient continues to refuse care to his detriment. Difficult situation. Has been recommended to be placed several times. No family present today. Potassium is trending down. Will add KCL to his IVF. Continue gentle IVF as he is not eating consistently. 12/07/17 Continue current antibiotics, PICC line placed yesterday evening. Repeat CRP in a.m. ID consult in a.m. Ulcers developed after hospitalization, may be pressure ulcers rather than diabetic wounds. 12/07/17 Psych: Primary team has discontinued scheduled Haldol and ordered 2mg IV TID PRN agitation; agree with this and can scheduled if needed. Can also utilize PRN lorazepam available. Consider pre-medicating with low dose lorazepam (0.25mg IV) 20-30 minutes prior to significant cares. Will continue to follow. 12/08/17 Path report negative for osteomyelitis. Dr. Guzman recommends treating with doxycycline 100 mg twice a day for 10-14 days. As patient is refusing to eat and refusing pills periodically, IV doxy may be substituted for oral if needed. Continue to offload wounds. Wound care following. Sugars have been well controlled. Pt had a BS of 45 this morning and was given 1 /2 amp of D50 and D51/2NS w/ KCl was started at 50ml/hr as pt is not eating or drinking. His Lantus remains on hold. Haldol and lorazepam as needed for increased agitation and behaviors. Psych following. 12/09/17 Continue PO doxy for infection of foot wounds and use IV if pt refuses oral. ( Doxy initiated on 12/08. Recommend tx through 12/20/17) Dr. Ortiz recommend switching to Haldol 0.25mg IV TID as pt is refusing oral medications (including Haldol.) If patient continues to be uncooperative, could increase to 0.5mg IV TID. Marinol started yesterday. Patient has refused Marinol. Add mirtazapine 7.5mg at HS. Start B12 supplementation for low B12 level. 12/10/17 Did eat half of pizza - SO reports very picky about food. Still refusing oral medications. Resistant to therapy. Discussed with about current status. Medically doing well - do not see medical process clouding his sensorium. Decreased oral drive and refusal for oral meds and therapy slowing progression. Will continue to work with patient on oral intake/meds/therapy. Concern that underlying dementia is limiting factor. Change B12 to IM as pt refusing medication. Continue low flow IVF for hydration due to decreased oral drive. 12/11/17 Patient remains poorly cooperative. Continue to provide IV medications for essential meds, as patient is frequently refusing oral medications. Will change IV fluids to LR at 50, as his blood sugar is trending up on D 5-1/2. Continue IV fluids to supplement poor oral intake. Mirtazapine for depression and decreased oral intake. Continue Marinol. Will add low-dose sliding scale insulin to help keep blood sugar under 200. Anemia is stable. Continue to follow routine lab. Patient's poor participation in care and medications as swelling his progress. He will most likely need placement when he is medically stable. 12/12/17 Patient has been more cooperative. He has been eating better and willing to sit up in chair. DC IV fluids. Continue Mirtazapine for depression and decreased oral intake. Continue Marinol. Ortho following for wound care/osteo. Continues on doxycycline IV for coverage . Not accepted to [facility] due to wound care needs. Arrangements made for Home Health at time of discharge. 12/13/17 Oral intake remains variable. IVF dc'd yesterday - monitor intake, labs, observe for dehydration. Continue Mirtazapine for depression and decreased oral intake. Continue Marinol. Will use Haldol in place of his home Seroquel. Change IV 0.25 to oral 0.5 TID - - keep IV backup incase patient refuses oral Haldol. S/P bedside wound debridement 12/11, recommends continue Hydrofera blue, change q3days. Offload heals while in bed. WBAT in postop shoes. Considering wound vac for left heel wound. Path report negative for osteomyelitis. Culture coag neg staph. Dr. Guzman recommends doxycycline for 10-14 days - changed to IV b/c he was refusing oral. Doxy was started on 12/08/17. 12/14/17 Labs and vitals stable. Eating better. BS's increasing. Has required SSI past few days. Was previously on 17 U Lantus q hs. Will restart Lantus at 10U hs. Increase mirtazapine to 15mg as this was listed as his dose on his home meds. Continue Marinol. Will need to convert to po B12 when completes 7 days of IM.
[2017-12-15 08:29] VITALS: BP 125/66; PULSE 74; TEMP 97.6; O2SAT 98
[2017-12-15] MEDS: ENOXAPARIN 40 MG/0.4 ML INJECTION SQ SCH (09:53)
[2017-12-15] MEDS: CYANOCOBALAMIN (B-12) 1,000mcg/ml INJECTION IM SCH (09:53)
[2017-12-15] MEDS: POLYETHYL GLYCOL 3350 17gm PACKET PO SCH (09:53)
[2017-12-15] MEDS: DRONABINOL 2.5 MG CAPSULE PO SCH (09:55)
[2017-12-15] MEDS: SALINE FLUSH 10ml SYRINGE IVF PRN (09:55)
[2017-12-15] MEDS: SENNA + DOCUSATE TABLET PO SCH (09:55)
[2017-12-15] MEDS: HALOPERIDOL 0.5 MG TABLET PO SCH ×2 (10:07→14:30)
--- NOTE | 2017-12-15 14:11 | Discharge Summary ---
Discharge Information Date of admission: 12/02/17 04:42 Anticipated date of discharge: 12/15/17 Attending Physician: Gabriel Andre MD Primary care physician: Chip Salmeron DO Consults: Consulting Provider: Smita Ortiz Reason For Exam: [facility] CONSULT/[facility] CONSULT Consulting Provider: Mohit No Reason For Exam: lower ext wounds Recommendations: Continue Hydrofera blue, change q3days. Follow up scheduled at [place] [facility] and home health. Pt encouraged to use the pillows and foam to keep pressure off the sores. Patient may be WBAT in post op shoes. Consulting Provider: Tuyet Guzman Reason For Exam: osteomyelitis Recommendations: Doxycycline for 10-14 days for his wounds - Discharge Diagnosis (1) Dementia Status: Acute (2) Chronic foot ulcer Status: Acute Discharge diagnosis Encephalopathy vs Dementia with behavioral dyscontrol Electrolytes and blood counts (other than chronic anemia) normal. Not seeing obvious source of systemic infection/inflammation. Associated conditions and complications Chronic wounds to Left heel and Right lateral malleolus Constipation Dehydration Type II DM Hypothyroidism Anemia - suspect chronic disease Gen debility Functional decline at home Low normal Vitamin B12 level - Procedures Procedures: PROCEDURE 12/04/2017 Surgical debridement of bilateral foot and ankle pressure ulcers with bone biopsy of right lateral malleolus. - Laboratory Labs: Admission labs 12/02/17 12/02/17 04:00 04:00 WBC 10.9 RBC 3.87 L Hgb 10.6 L Hct 32.0 L Plt Count 389 Sodium 144 Potassium 3.7 Chloride 107 BUN 18.0 Creatinine 0.9 GFR Calculation 83 Glucose 151 H Calcium 8.9 Magnesium 1.8 Total Bilirubin 0.80 AST 28 ALT 23 Total Protein 7.5 Albumin 4.0 Globulin 3.5 Dismissal labs 12/06/17 12/06/17 07:49 07:49 WBC 9.0 RBC 3.95 L Hgb 10.6 L Hct 32.3 L Plt Count 359 Sodium 141 Potassium 3.5 L Chloride 105 Carbon Dioxide 24 BUN 5.0 L Creatinine 0.7 L Glucose 109 Urinalysis 12/02/17 02:45 Ur Collection Type Urine, cath straight Urine Color Yellow Urine Clarity Clear Urine pH 5.5 Ur Specific [place] >=1.030 H Urine Protein Negative Urine Glucose (UA) Negative Urine Ketones 1+ A Urine Occult Blood Negative Urine Nitrate Negative Urine Urobilinogen 1.0 Ur Leukocyte Esterase Negative Misc labs 12/03/17 12/03/17 12/03/17 04:19 04:19 04:19 C-Reactive Protein 60.8 H Vitamin B12 380 TSH 6.44 H D 12/04/17 04:20 Iron 42 L TIBC 262 % Saturation 16 - Microbiology Microbiology 12/04/17 17:05 Ankle, Right, Bone Surgical Culture - Final Coag negative Staphylococcus - sensitive to doxycycline. Resistant to cipro, erythromycin, oxacillin. - Radiology Radiology: Date of Exam: 12/04/17 PROCEDURE: MR ankle BI wo/w con: Impression: Right ankle: Small region of osteomyelitis in the distal lateral fibula. Left ankle: Nearly nondiagnostic exam due to severe motion artifact. No gross bone marrow abnormality. Date of Exam: 12/02/17 PROCEDURE: CT head/brain wo con: Indication: mental status change FINDINGS: Mild generalized atrophy. The ventricles are prominent but roughly proportional to atrophy. There are scattered areas of low attenuation in the white matter which most likely represent changes from chronic microvascular ischemia. The brainstem, cerebellum, and cerebral hemispheres otherwise have a normal morphology and CT attenuation. There is no evidence of midline displacement. No hemorrhage, signs of acute territorial stroke, mass effect, mass lesions, or edema is evident. The visualized portions of the skull base, midface, and calvarium demonstrate no abnormality. The tympanic and mastoid cavities appear normal. IMPRESSION: No acute intracranial abnormality or hemorrhage. - Pathology Bone bx - NEG for osteomyelitis History of Present Illness HPI: This is a 72 y/o male with a history of dementia unspecified. The patient had been admitted to [facility] geriatric psych facility 4 weeks ago and the family removed from the facility 2 weeks ago. Since then his behavior is worsening and He is brought out tonight because of his increased aggressiveness. In the ED the patent's vitals are stable. CT head and abdomen/pelvis are negative for acute disease. The Patient required Haldol, Ativan and ketamine to be able to image. The patient has wounds on his heel and right lat malleolus that have been worsening per family. At this time the patient is unable to go home He will be admitted for further wound assessment and case management input. For complete details of the H&P refer to that document. Objective Vital signs: Temperature 97.6 F 12/15/17 08:00 Pulse Rate 74 12/15/17 08:00 Respiratory Rate 18 12/15/17 08:00 Blood Pressure 125/66 12/15/17 08:00 Pulse Oximetry 98 12/15/17 08:00 Height/Weight/BMI: Height 1.83 m Weight 70.9 kg Body Mass Index 21.2 - Constitutional Present: no acute distress, well nourished, well developed - Routine HEENT Exam Head: Present: normocephalic, atraumatic - Routine Respiratory Exam Present: CTA bilaterally. Absent: wheezes - Routine Cardiovascular Exam Present: RRR, no murmur - Routine Abdominal Exam Present: soft, non distended, non tender - Routine Extremities Exam Present: no edema, normal capillary refill Comments: heel/malleolar wounds covered with Mepilex dressings and wrapped with Kerlix. Debrided by ortho/wound today. - Routine Skin Exam Present: dry, warm - Routine Neurological Exam Present: normal speech - Routine Lymphatic Exam Lymphatic: Absent: adenopathy - Routine Psychiatric Exam Present: cooperative Hospital Course This is a general summary of the patient's hospital course. For more details refer to the complete medical record. Hospital course: 12/02/17 [place] [facility] [place] concern for worsening encephalopathy and care failure in outpatient setting. Initiate IVF for NS for hydration, monitoring volume status. Wound consult for chronic leg wounds. Psych consult for devaluation of dementia with declining functional status and worsening behaviors. Continue with home medications. PT/OT eval and treat due to functional decline. Monitor sugars secondary to diabetes and Lantus use - hold on Lantus due to decreased oral intake. Work on bowel motivation - prn MOM and Dulcolax in addition to starting routine Miralax. Haldol and lorazepam as needed for increased agitation and behaviors. Monitor lab. SCD for DVT prevention. Full code ordered. Care to return to Dr Salmeron at time of [place] [facility] [place] 12/03/17 Wound team to evaluate bilateral lower ext today. Psychiatric consultation. Overall blood counts and electrolytes are normal. 12/04/17 Diabetic foot ulcers, osteomyelitis identified at fibular head by MRI. Surgical debridement this afternoon and cultures obtained. Will initiate therapy empirically for diabetic foot ulcers with osteo-with vancomycin and Unasyn pending culture results. Arterial Dopplers will be needed at some point to evaluate for PVD. 12/05/2017 Continue broad spectrum coverage for diabetic foot ulcers with osteo-with vancomycin and Unasyn pending culture results. Mild increase in leukocytosis- suspect due to debridement yesterday. Afebrile. Haldol and lorazepam as needed for increased agitation and behaviors. Psych following. 12/06/2017 Continue broad spectrum coverage for diabetic foot ulcers with osteo-with vancomycin and Unasyn pending culture results. Leukocytosis is improved today. Pt. remains afebrile. Haldol and lorazepam as needed for increased agitation and behaviors. Psych following. Patient continues to refuse care to his detriment. Difficult situation. Has been recommended to be placed several times. No family present today. Potassium is trending down. Will add KCL to his IVF. Continue gentle IVF as he is not eating consistently. 12/07/17 Continue current antibiotics, PICC line placed yesterday evening. Repeat CRP in a.m. ID consult in a.m. Ulcers developed after hospitalization, may be pressure ulcers rather than diabetic wounds. 12/07/17 Psych: Primary team has discontinued scheduled Haldol and ordered 2mg IV TID PRN agitation; agree with this and can scheduled if needed. Can also utilize PRN lorazepam available. Consider pre-medicating with low dose lorazepam (0.25mg IV) 20-30 minutes prior to significant cares. Will continue to follow. 12/08/17 Path report negative for osteomyelitis. Dr. Guzman recommends treating with doxycycline 100 mg twice a day for 10-14 days. As patient is refusing to eat and refusing pills periodically, IV doxy may be substituted for oral if needed. Continue to offload wounds. Wound care following. Sugars have been well controlled. Pt had a BS of 45 this morning and was given 1 /2 amp of D50 and D51/2NS w/ KCl was started at 50ml/hr as pt is not eating or drinking. His Lantus remains on hold. Haldol and lorazepam as needed for increased agitation and behaviors. Psych following. 12/09/17 Continue PO doxy for infection of foot wounds and use IV if pt refuses oral. ( Doxy initiated on 12/08. Recommend tx through 12/20/17) Dr. Ortiz recommend switching to Haldol 0.25mg IV TID as pt is refusing oral medications (including Haldol.) If patient continues to be uncooperative, could increase to 0.5mg IV TID. Marinol started yesterday. Patient has refused Marinol. Add mirtazapine 7.5mg at HS. Start B12 supplementation for low B12 level. 12/10/17 Did eat half of pizza - SO reports very picky about food. Still refusing oral medications. Resistant to therapy. Discussed with about current status. Medically doing well - do not see medical process clouding his sensorium. Decreased oral drive and refusal for oral meds and therapy slowing progression. Will continue to work with patient on oral intake/meds/therapy. Concern that underlying dementia is limiting factor. Change B12 to IM as pt refusing medication. Continue low flow IVF for hydration due to decreased oral drive. 12/11/17 Continue to provide IV medications for essential meds, as patient is frequently refusing oral medications. Will change IV fluids to LR at 50, as his blood sugar is trending up on D 5-1/2. Mirtazapine for depression and decreased oral intake. Continue Marinol. Will add low-dose sliding scale insulin to help keep blood sugar under 200. 12/12/17 Patient has been more cooperative. He has been eating better and willing to sit up in chair. DC IV fluids. Continue Mirtazapine for depression and decreased oral intake. Continue Marinol. Ortho following for wound care/osteo. Continues on doxycycline IV for coverage . Not accepted to [facility] due to wound care needs. Arrangements made for Home Health at time of discharge. 12/13/17 Oral intake remains variable. IVF dc'd yesterday - monitor intake, labs, observe for dehydration. Continue Mirtazapine for depression and decreased oral intake. Continue Marinol. Will use Haldol in place of his home Seroquel. Change IV 0.25 to oral 0.5 TID - - keep IV backup incase patient refuses oral Haldol. S/P bedside wound debridement 12/11, recommends continue Hydrofera blue, change q3days. Offload heals while in bed. WBAT in postop shoes. Path report negative for osteomyelitis. Culture coag neg staph. Dr. Guzman recommends doxycycline for 10-14 days - changed to IV b/c he was refusing oral. Doxy was started on 12/08/17. 12/14/17 Labs and vitals stable. Eating better. BS's increasing. Has required SSI past few days. Was previously on 17 U Lantus q hs. Will restart Lantus at 10U hs. Increase mirtazapine to 15mg as this was listed as his dose on his home meds. Continue Marinol. Will need to convert to po B12 when completes 7 days of IM. 12/15/17 DC home with today. He'll f-u with [facility] for continued treatment of wounds. Doxycyline through 12/22/17. F-u with Dr. Salmeron next week. Time spent with patient: discharge greater than 30 minutes Resuscitation Status: Full Code Discharge Plan - Discharge Disposition Discharge Date: 12/15/17 Disposition: 86 Home Health Service *Condition: Stable Reason For Visit (Visit label in EMR): encephalopathy - Discharge Medications *Discharge Medications: New Dronabinol [Marinol] 2.5 mg PO BID #60 cap Haloperidol [Haldol] 0.5 mg PO TID #90 tab Hydrocodone/APAP 5/325 [Limon 5/325] 1 tab PO Q6H PRN #30 tab PRN Reason: Pain Senna + Docusate [Senna Plus Tablet] 2 tab PO BID #120 tab Doxycycline [Vibramycin] 100 mg PO BID #15 tab Cyanocobalamin (Vitamin B-12) [Vitamin B-12] 1 tab PO DAILY #30 tab Haloperidol [Haldol] 0.5 mg PO Q6H PRN #15 tab PRN Reason: Agitation Continue Acetaminophen 650 mg PO TID PRN 14 Days #0 PRN Reason: PAIN Levothyroxine Sodium [Synthroid] 100 mcg PO ACB Folic Acid [Folate] 1 tab PO DAILY Mirtazapine [Remeron] 15 mg PO HS Pantoprazole Tab [Protonix] 20 mg PO BID Changed Insulin Glargine,Hum.rec.anlog [Lantus] 10 unit SQ HS #0 Discontinued Quetiapine Fumarate [Seroquel] 200 mg PO DAILY Docusate Sodium [Colace] 1 cap PO DAILY Quetiapine Fumarate [Seroquel] 100 mg PO BID - Discharge Packet/Instructions *Diet: Diabetic diet *Activity: Weight bearing as tolerated in post-op shoes. Keep pressure off of heels at all times when resting. If in bed for more than 2 hours at a time, needs to be encouraged to change position to decrease risk of developing other pressure wounds. *Pain Management/Treatment: hydrocodone/APAP and/or acetaminophen as directed. Patient should not take in more than 4000mg of acetaminophen per 24 hours. Each pill of hydrocodone/APAP has 325mg of acetaminophen. *Wound Care: [facility] visit weekly. Dressing changes every 3 days. (Can be done by home health/wound clinic.). Keep pressure off of the wounds. *Notify Physician if: you develop fever, redness surrounding your foot wounds, or othe new/concerning symptoms. *During Business Hours Contact: Dr. Salmeron's office *After Business Hours Contact: Dr. Salmeron's office and follow after hours instructions, or report to nearest ER. *Pending Lab/Results: No Pending Lab - Referrals/Follow Up *Referrals/Follow Up: Chip Salmeron DO [Primary Care Provider] - [address] [facility] [Other] ( will set up appointment) - Patient Handouts Patient Handouts: Pressure Ulcer (DC) - Dismissal Complete Discharge Instructions are:: Complete Physician Narrative - Narrative Physician: Gabriel Andre MD Attestation Narrative: Date: 12/15/17 Time: 1754 I have independently interviewed and examined patient prior to discharge. Chart reviewed. Case discussed with CM, pt's SO, and my PA. Care plan developed with my supervision; agree with above. Doing okay. More alert, talking more. Eating better. Taking medications. Breathing well. Lungs: decreased, no distress CV: regular AB: soft nt Plan: Medically stable for discharge to home with home health. See orders for details.
[2017-12-15] MEDS ORDERED: NEOMYCIN/POLYMYXIN/BACITRACIN OINT PACKET TP ONE (15:28)
== END 2017-12-15 20:51 | disposition home health service (06) | DRG 876 ==
LOC: ED 23:04 → SUATTDRO 12-02 04:42 → EDHOLD 12-02 04:42 → MED 12-02 05:22
PROVIDERS: ADMIT Emergency Medicine; ATTEND Hospitalist